=== PATIENT | male | born 1980 | race Caucasian/White ===

== ENCOUNTER 2018-03-26 11:40 | Emergency (ER) | payer MEDICARE, MEDICAID, SELFPAY ==
[2018-03-26 11:45] VITALS: BP 153/105; PULSE 99; RESP 22; TEMP 36.2; O2SAT 94
--- NOTE | 2018-03-26 11:56 | ED.GENADUL_ITS ---
Disposition Clinical Impression: Abdominal pain, Acute flank pain Disposition: HOME Condition: Good Instructions: Abdominal Pain (ED), Flank Pain (ED) Additional Instructions: As we discussed, we are somewhat limited in our ability to evaluate your abdominal discomfort that is improving. As we discussed, please return tomorrow morning for mandatory recheck unless pain is dissipating or resolved. Return sooner if you develop a fever, vomiting, worsening pain or any other acute concerns. Home to rest today. Small, frequent sips of fluids to maintain hydration. May use Tylenol 975 mg every 6 hours, as well as ibuprofen 800 mg every 8 hours( with food, next dose in 6 hours). Medical Decision Making - Lab Data Laboratory Results - last 24 hr 03/26/18 03/26/18 03/26/18 11:56 11:56 12:05 WBC 12.40 H RBC 5.29 Hgb 16.0 Hct 47.2 MCV 89.2 MCH 30.2 MCHC 33.9 RDW 13.8 Plt Count 360 MPV 11.0 Immature Gran % 0.3 Neutrophils % 75.3 Lymphocytes % 14.4 Monocytes % 9.0 Eosinophils % 0.8 Basophils % 0.2 Absolute Neutrophils 9.34 H Absolute Lymphocytes 1.79 Absolute Monocytes 1.12 H Absolute Eosinophils 0.10 Absolute Basophils 0.02 Sodium 139 Potassium 3.9 Chloride 102 Carbon Dioxide 26.5 Anion Gap 10.5 BUN 10 Creatinine 1.21 Estimated GFR/1.73 m2 >= 60.00 Glucose 114 H Calcium 9.3 Total Bilirubin 0.6 AST 41 H ALT 71 Alkaline Phosphatase 76 Total Protein 8.9 H Albumin 4.0 Urine Color Yellow Urine Clarity Clear Urine pH 5.5 Ur Specific [place] 1.020 Urine Protein Negative Urine Ketones Negative Urine Blood Negative Urine Nitrite Negative Urine Bilirubin Negative Urine Urobilinogen 0.2 Ur Leukocyte Esterase Negative Urine Glucose Negative Results reviewed for labs ordered during visit: Yes - Radiology Data Radiology results: image reviewed - Medical Decision Making 38-year-old male presents with the abrupt onset of colicky left-sided flank pain at 0100 this morning. He is slightly hypertensive but afebrile in mild to moderate distress. Of note on exam is 480 pounds, in mild distress, tender in the left flank and abdomen on exam. Most consistent with renal colic, most exclude other pathologies. His weight precludes CT imaging. IV placed, labs obtained compression referred for ultrasound. Urinalysis unremarkable, chemistries within normal limits BUN 10, creatinine 1.2 , liver functions unremarkable. White blood cell count 12, hematocrit 47. The patient's improved to 3 out of 10 following ketorolac. This ultrasound was limited by body habitus but not show acute, significant findings. Discussed with him the limitations of workup. He was reexamined without persistent discomfort and he does not demonstrate signs of peritonitis. Discussed with him that we will have him return to see myself or his other provider tomorrow for recheck. Discussed this at the bedside with his partner in attendance. He will return sooner if he develops fever, increasing pain, or any other acute concerns. History of Present Illness - General Chief complaint: FlankPain Stated complaint: SEVERE BACK PAIN Time Seen by Provider: 03/26/18 11:42 Source: patient, family, RN notes reviewed Mode of arrival: ambulatory Limitations: no limitations - History of Present Illness Initial comments: Pain: 30-year-old male presents to return today complaining of the above onset of severe left-sided flank pain approximately 2:00 this morning. It has been waxing and waning and has begun to radiate to the front. He did not have nausea or vomiting. He denies urine changes. No recent fever or illness. States he did not fall or hurt himself. No other exacerbating or ameliorating factors. - Related Data Unknown [Unable to Obtain] 03/26/18 Allergies Allergy/AdvReac Type Severity Reaction Status Date / Time No Known Allergies Allergy Unverified 03/26/18 11:48 Review of Systems Other: 6 systems reviewed, otherwise- General Exam - General Limitations: no limitations General appearance: alert, in no apparent distress - Head Head exam: Present: atraumatic, normocephalic - Eye Eye exam: Present: PERRL, EOMI - Neck Neck exam: Present: normal inspection, full ROM - Respiratory Respiratory exam: Present: normal lung sounds bilaterally. Absent: respiratory distress - Cardiovascular Cardiovascular Exam: Present: regular rate, normal rhythm - GI/Abdominal GI/Abdominal exam: Present: soft, tenderness, other. Absent: distended - Extremities Exam Extremities exam: Present: normal inspection, full ROM - Back Exam Back exam: Present: normal inspection, tenderness, CVA tenderness (L). Absent: vertebral tenderness - Neurological Exam Neurological exam: Present: alert, oriented X3 - Psychiatric Psychiatric exam: Present: normal affect, normal mood - Skin Skin exam: Present: warm, dry, intact Course Vital Signs - 24 hr 03/26/18 11:45 Temperature 36.2 C L Pulse 99 H Respiratory 22 Rate Blood Pressure 153/105 Pulse Oximetry 94 L
[2018-03-26] MEDS: Ketorolac 30 MG/ML VIAL IVP (12:00)
[2018-03-26 12:07] LABS: Abs Immature Grans 0.04 k/cumm (0.0-0.09); Absolute Basophil Count 0.02 k/cumm (0.0-0.2); Absolute Monocyte Count 1.12 k/cumm (0.11-0.7); Absolute Neutrophil Count 9.34 k/cumm (1.2-6.7); Basophils % 0.2; Eosinophils % 0.8; HCT 47.2 % (40.0-50.0); Immature Grans % 0.3; Lymphocytes % 14.4; Mean Corp. HGB Concentration 33.9 g/dL (32.0-36.0); Mean Corpuscular Hemoglobin 30.2 pg (27.0-33.0); Mean Corpuscular Volume 89.2 fL (80-95); Neutrophils % 75.3; Platelet Count 360 x1000/uL (130-400); RBC 5.29 m/cumm (4.50-6.00); RBC Distribution Width 13.8 % (11.8-14.1)
[2018-03-26 12:09] LABS: Absolute Lymphocyte Count 1.79 k/cumm (1.2-3.4)
--- NOTE | 2018-03-26 12:09 | DI.REPORT_ITS ---
SYMPTOM/DIAGNOSIS: 480 LBS. LT FLANK PAIN RADIATING TO ANTERIOR ABDOMINAL ULTRASOUND: Routine examination was performed. The study is severely limited due to patient 's obesity. The aorta and IVC were incompletely visualized. There is diffuse increased echogenicity of the liver consistent with fatty infiltration. No gross abnormality is seen sonographically. The gallbladder is unremarkable. No stones are present. The common bile duct could not be visualized due to body habitus nor could the pancreas. The spleen is mildly enlarged but not well visualized. The kidneys are poorly visualized. No obvious hydronephrosis is identified. The kidneys appear normal in size. IMPRESSION: Significantly limited examination due to patient body habitus. No evidence of hydronephrosis...
[2018-03-26 12:12] LABS: Bilirubin Negative (Negative); Blood Negative (Negative); Clarity Clear; Glucose Negative (Negative); Ketones Negative (Negative); Leukocyte Esterase Negative (Negative); Nitrite Negative (Negative); Urobilinogen 0.2 EU/dL (Up TO 0.2); pH 5.5 (5-8)
[2018-03-26 12:21] LABS: ALT 71 U/L (12-78); AST 41 U/L (15-37); Alkaline Phosphatase 76 U/L (46-116); Anion Gap 10.5 mmol/L (3-11); BUN 10 mg/dL (7-18); Bilirubin, Total 0.6 mg/dL (0.2-1.0); CO2 26.5 mmol/L (21.0-32.0); CREATININE 1.21 mg/dL (0.70-1.30); Calcium 9.3 mg/dL (8.5-10.1); Chloride 102 mmol/L (98-107); Glucose 114 mg/dL (70-100); Potassium 3.9 mmol/L (3.5-5.1); Sodium 139 mmol/L (136-145); Total Protein 8.9 g/dL (6.4-8.2)
[2018-03-26] MEDS: Normal Saline 1,000 ML 1000 ML IV (12:48)
[2018-03-26 13:04] VITALS: BP 135/98; PULSE 68; RESP 19; O2SAT 94
== END 2018-03-26 13:04 | disposition home or self-care (01) ==
PROVIDERS: Emergency Provider Emergency Medicine; PCP Family Medicine
DX: R10.32 Left lower quadrant pain (principal); Z68.43 Body mass index [BMI] 50.0-59.9, adult
CPT/HCPCS: 76700; 96374; 99284 ×2; J1885; 36415; 80053; 81003; 85025

== ENCOUNTER 2018-04-05 16:03 | Outpatient (CLI) | payer MEDICARE, MEDICAID, SELFPAY ==
[2018-04-06 09:50] LABS: PSA, Screening 0.1 ng/ml (0-2.5)
== END 2018-04-05 16:04 ==
PROVIDERS: PCP Family Medicine; Visit Provider Nurse Practitioner Gerontology
DX: N39.41 Urge incontinence (principal); Z12.5 Encounter for screening for malignant neoplasm of prostate; I10 Essential (primary) hypertension
CPT/HCPCS: 36415; 81003; 84153; 99204

== ENCOUNTER → 2018-06-20 10:25 | Outpatient (BNVA) | payer MEDICARE, MEDICAID, SELFPAY | PROVIDERS: PCP Family Medicine; Visit Provider Nurse Practitioner Gerontology | DX: R32 Unspecified urinary incontinence (principal) | CPT/HCPCS: 99213 ==

== ENCOUNTER → 2018-08-09 10:12 | Outpatient (BNVA) | payer MEDICARE, MEDICAID, SELFPAY | PROVIDERS: PCP Family Medicine; Visit Provider Nurse Practitioner Gerontology | DX: N39.498 Other specified urinary incontinence (principal) | CPT/HCPCS: 51798; 99213 ==

== ENCOUNTER 2019-06-19 08:41 | Outpatient (REF) | payer MEDICARE, MEDICAID, SELFPAY ==
[2019-06-19 13:02] LABS: HCT 44.9 % (40.0-50.0); HGB 15.1 g/dL (13.5-17.5); Mean Corp. HGB Concentration 33.6 g/dL (32.0-36.0); Mean Corpuscular Hemoglobin 29.8 pg (27.0-33.0); Mean Corpuscular Volume 88.7 fL (80-95); Mean Platelet Volume 11.1 fL (8.0-11.0); Platelet Count 391 x1000/uL (130-400); RBC 5.06 m/cumm (4.50-6.00); RBC Distribution Width 14.4 % (11.8-14.1); White Blood Cell Count 7.45 k/cumm (4.4-10.8)
[2019-06-19 13:24] LABS: ALT 27 U/L (16-63); AST 22 U/L (15-37); Albumin 4.5 g/dL (3.4-5.0); Alkaline Phosphatase 72 U/L (46-116); Anion Gap 11.3 mmol/L (3-11); BUN 10 mg/dL (7-18); Bilirubin, Total 0.9 mg/dL (0.2-1.0); CO2 28.7 mmol/L (21.0-32.0); CREATININE 1.01 mg/dL (0.70-1.30); Calculated LDL 117 mg/dL; Chloride 103 mmol/L (98-107); Cholesterol 169 mg/dL (50-200); Glucose 84 mg/dL (70-100); HDL Cholesterol 41 mg/dL (40-60); Potassium 4.5 mmol/L (3.5-5.1); Sodium 143 mmol/L (136-145); Total Protein 8.2 g/dL (6.4-8.2); Triglyceride 56 mg/dL (30-150)
== END 2019-06-19 09:01 ==
LOC: NCHCN 08:41
PROVIDERS: PCP Family Medicine; Visit Provider Family Medicine
DX: I10 Essential (primary) hypertension (principal)
CPT/HCPCS: 80053; 80061; 85027

== ENCOUNTER 2024-09-02 14:44 | Emergency (ER) | payer MEDICARE, MEDICAID, SELFPAY ==
[2024-09-02 14:47] VITALS: BP 136/85; PULSE 82; RESP 16; TEMP 36.9; O2SAT 98
--- NOTE | 2024-09-02 14:53 | ED.GENADUL_ITS ---
Discharge Plan Disposition Patient Disposition: Home Discharge Details Clinical Impression: Laceration of leg, right Primary Care Provider: Mayo Wilson ED Provider: Varun Nolen Home Meds and New Rx's Prescriptions: New cephalexin 500 mg capsule 500 mg PO QID 5 Days Qty: 20 0RF cephalexin 500 mg capsule 500 mg PO QID 5 Days Qty: 20 0RF Continued oxybutynin chloride 10 mg tablet extended release 24hr 10 mg PO DAILY Qty: 90 0RF Rx Instructions: Note dosage increase. May finish 5mg rx by taking 2 tabs/caps at a time then start new rx. furosemide 40 MG tablet 80 mg PO DAILY acetaminophen 500 MG tablet 1,000 mg PO Q6H PRN buspirone 30 mg tablet 30 mg PO BID clonidine HCl 0.2 mg tablet 0.4 mg PO DAILY clonidine HCl 0.3 mg tablet 0.3 mg PO QHS fluoxetine 40 mg capsule 40 mg PO DAILY lisinopril 20 mg tablet 20 mg PO DAILY lurasidone 20 mg tablet 20 mg PO .every other day Rx Instructions: must administer with food (at least 350 calories) metoprolol succinate 50 mg tablet extended release 24 hr 50 mg PO DAILY cyanocobalamin (vitamin B-12) [Vitamin B-12] 1,000 mcg tablet 1,000 mcg PO DAILY cholecalciferol (vitamin D3) 25 mcg (1,000 unit) tablet 25 mcg PO DAILY lisdexamfetamine [Vyvanse] 40 mg capsule 40 mg PO QAM Discharge Instructions Instructions: Wound Infection Additional Instructions: You were seen in the emergency department for your right lower extremity laceration which was closed with sutures that will need to be removed in 7 to 10 days. As we discussed, please keep your wound clean, dry and covered. Please do not soak in a tub, swim or engage in any activities which could introduce dirt into your wound. You may return to the emergency department, go to urgent care or go to your primary care provider in 7 to 10 days to have your stitches removed. As we discussed if you develop any foul-smelling drainage fevers streaking signs of infection or have any other concerns please return to the emergency department. You received a printed copy of antibiotics which you should begin taking in the morning tomorrow. For your pain please take medications as follows: 1. Take acetaminophen (Tylenol), 1,000 mg (two 500 mg tabs) every 6 hours [2. Take ibuprofen (Advil), 400 mg every 6 hours.] Discharge Data Discharge Date/Time-TO BE ENTERED AT DEPARTURE: 09/02/24 17:12 HPI General Date/Time Provider Initiated Documentation: 09/02/24 14:53 . HPI Narrative: MDM Primary survey intact. Reassuring shock index. On secondary survey patient has significant right lower extremity laceration on lateral aspect of his tibia for which plain films were obtained which were negative for any acute osseous abnormalities. After tetanus immunization and 2 g of cephalexin extensive irrigation and application of left close the patient's wound. Please see separate procedure notes. He is not a diabetic nor a tobacco user though based on the area of injury my suspicion is still relatively high for poor wound healing. Given that he fell outdoors I close the patient's wound loosely. I advised rest and elevation along with monitoring for streaking signs of infection. Patient no preceding chest pain to suggest ACS I did not obtain ECG. He did not hit his head or lose consciousness and no indication for CT head. He had a ride home after receiving IV morphine. He was able to tolerate p.o. after his laceration was closed. He understood his return indications and was discharged with an empiric trial of infection to outpatient management. HPI This is a 44-year-old male with history of schizophrenia arrived emergency department via private vehicle following a fall. Patient was reportedly walking in the [place] and inadvertently fell into a hole. He cut his right lower extremity on a rock. He noted that it was bleeding significantly. He is not on a blood thinner. He had no preceding chest pain shortness of breath nausea or vomiting. Exam General: Well-appearing in no acute distress speaking in complete sentences. Head: Normocephalic, atraumatic. Eye: Extraocular eye movements intact. No conjunctival injection. No scleral icterus. Ear, nose, mouth, throat: Grossly normal inspection. Normal voice, handling secretions normally. Neck: Trachea midline. Cardiovascular: Well-perfused distal extremities. Respiratory: Nonlabored respiration. Clear lungs bilaterally. Gastrointestinal: Nondistended abdomen. Musculoskeletal: No edema. Moving all 4 extremities spontaneously. On the lateral aspect of the patient's right lower extremity between his right knee and his right ankle there is an approximately 5 x 4 cm laceration that is hemostatic and does not violate the fascia. Patient is full range of motion in his right lower extremity. He has 2+ PT and DP pulses. He is 5 out of 5 dorsi and planta r flexion strength on the right. He has soft compartments of his right lower extremity. Skin: Normal for age and race, grossly normal temperature and turgor. No acute rash. Neurologic: Alert and appropriate, no apparent acute deficits. GCS 15. Related Data Home Medications ?Medication ?Instructions ?Recorded ?Confirmed acetaminophen 500 mg tablet 1,000 mg PO Q6H PRN 04/05/18 09/02/24 furosemide 40 mg tablet 80 mg PO DAILY 04/05/18 09/02/24 oxybutynin chloride 10 mg 10 mg PO DAILY #90 tabs 08/09/18 09/02/24 tablet,extended release 24 hr buspirone 30 mg tablet 30 mg PO BID 04/10/24 09/02/24 cholecalciferol (vitamin D3) 25 25 mcg PO DAILY 04/10/24 09/02/24 mcg (1,000 unit) tablet clonidine HCl 0.2 mg tablet 0.4 mg PO DAILY 04/10/24 09/02/24 clonidine HCl 0.3 mg tablet 0.3 mg PO QHS 04/10/24 09/02/24 cyanocobalamin (vitamin B-12) 1,000 mcg PO DAILY 04/10/24 09/02/24 1,000 mcg tablet (Vitamin B-12) fluoxetine 40 mg capsule 40 mg PO DAILY 04/10/24 09/02/24 lisdexamfetamine 40 mg capsule 40 mg PO QAM 04/10/24 09/02/24 (Vyvanse) lisinopril 20 mg tablet 20 mg PO DAILY 04/10/24 09/02/24 lurasidone 20 mg tablet 20 mg PO .every other day 04/10/24 09/02/24 metoprolol succinate 50 mg 50 mg PO DAILY 04/10/24 09/02/24 tablet,extended release 24 hr cephalexin 500 mg capsule 500 mg PO QID 5 days #20 caps 09/02/24 cephalexin 500 mg capsule 500 mg PO QID 5 days #20 caps 09/02/24 Previous Rx's ?Medication ?Instructions ?Recorded oxybutynin chloride 10 mg 10 mg PO DAILY #90 tabs 08/09/18 tablet,extended release 24 hr cephalexin 500 mg capsule 500 mg PO QID 5 days #20 caps 09/02/24 cephalexin 500 mg capsule 500 mg PO QID 5 days #20 caps 09/02/24 Allergies Allergy/AdvReac Type Severity Reaction Status Date / Time No Known Allergies Allergy Unverified 09/02/24 14:49 General Stated Complaint: Laceration LISA: 3 Course Vital Signs Vital signs: Vital Signs Temperature 36.9 C 09/02/24 14:47 Pulse 82 09/02/24 14:47 Respiratory Rate 16 09/02/24 14:47 Blood Pressure 136/85 09/02/24 14:47 Pulse Oximetry 98 09/02/24 14:47 Temperature 36.9 C 09/02/24 14:47 Temperature Source Oral 09/02/24 14:47 Pulse 82 09/02/24 14:47 Respiratory Rate 16 09/02/24 14:47 Blood Pressure 136/85 09/02/24 14:47 Blood Pressure Position Sitting 09/02/24 14:47 Pulse Oximetry 98 09/02/24 14:47 Oxygen Delivery Method Room Air 09/02/24 14:47 Oxygen Flow Rate 0 09/02/24 14:47 Pain Level 3 09/02/24 14:47 Procedure Laceration Laceration 1: Date of Procedure: 09/02/24 Time of procedure: 17:04 Provider that performed the procedure: Varun Nolen Patient Consented: Verbally Site: lower extremity Side (If applicable): right Description: flap Depth: simple, single layer Pre-procedure medication: Morphine Amount of pre-procedure medication(mg): 4 Local anesthetic: Lidocaine 2%, with Epi and LET(lidocaine epinephrine tetracaine) Amount of anesthesia used (mL): 20 Pre-repair:: wound explored and irrigated extensively Skin layer closed with: other (Prolene) Size (cm): 3-0 Number of sutures:: 12 Technique: simple, interrupted and vertical mattress Medical Decision Making Quality:SDOH Health Related Social Needs: No Data to Display PFSH All Active Problems (Updated 09/02/24 @ 17:01 by Varun Nolen MD) Laceration of leg, right (Acute) Snoring (Acute) Primary focal hyperhidrosis (Acute) Onychogryposis (Acute) Obstructive sleep apnea (Chronic) Insomnia (Acute) Hypersomnia (Acute) Depressive disorder (Chronic) Venous stasis ulcer of lower leg (Acute) Tachycardia (Acute) Schizophrenia (Chronic) Morbid obesity (Acute) Lymphedema of both lower extremities (Acute) Cracked skin on feet (Acute) Increased urinary frequency (Acute) Caffeine abuse (Acute) Foot callus (Acute) Complete fecal incontinence (Acute) Anxiety (Chronic) Binge eating disorder (Acute) Hypertension (Chronic) Urinary incontinence (Acute) Social History (Updated 04/10/24 @ 13:24 by Fawn Hoffman RN, RN) Smoking/Tobacco Use Status: Never Smoking risk assessment performed?: Yes Alcohol Intake: never Drug use: Never Substance use type: does not use Housing: house Do you feel safe at home: Yes Do you feel safe in your relationship?: Yes Additional Social history: caregiver very supportive
[2024-09-02] MEDS: ceFAZolin 2 GM/50 ML BAG IVPB (15:43)
[2024-09-02] MEDS: Ketorolac 15 MG/ML VIAL IVP (15:43)
[2024-09-02] MEDS: Lidocaine/Epinephri/Tetracaine Topical Gel 3 ML TP (15:44)
[2024-09-02] MEDS: Diph,Pertuss(Acell),Tet Vac/Pf 0.5 ML SYR IM (15:44)
--- OUTSIDE RECORDS SUMMARY | 2024-09-02 16:13 | XMS_ITS | Encounter Summary ---
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 Out And Marking Machine Operator Name Role Phone Lynne Barrett MD Primary Care Provider Reason for Visit * Reason Onset Date Comments Referral 08/06/2018 Encounter Details Date Type Department Care Team (Late st Contact Info) Description 08/06/2018 Telephone Weight and Wellness at [facility] [address] [place] [address] Herber Rutherford, denture contour wire specialist Social History Tobacco Use Types Packs/Day Years Used Date Smoking Tobacco: Never Sex and Gender Information Value Date Recorded Sex Assigned at Not on file Gender Identity Not on file Sexual Orientation Not on file documented as of this encounter Miscellaneous Notes * Telephone Encounter - Ute Restrepo - 08/06/2018 1:49 PM EST Gene Please review Thank you documented in this encounter Plan of Treatment Not on file documented as of this encounter Visit Diagnoses Not on filedocumented in this encounter Care Teams Cut Out And Marking Machine Operator Relationship Specialty Start Date End Date Lynne Barrett MD [address] [place] [address] PCP - General Family Medicine 06/02/16 12/25/19 documented as of this encounter
--- OUTSIDE RECORDS SUMMARY | 2024-09-02 16:13 | XMS_ITS | Continuity of Care Document ---
Author Organization [facility] Address [address] [place] [address] Care Team Providers Care Oyster Washer Name Role Phone Mayo Wilson Primary Care Physician [facility] Date[facility] 07/19/23 - 07/19/23 [facility] [address] [place] [address] Discharge Disposition: Home or Self Care Attending Physician: Mayo Wilson MD Admitting Physician: Mayo Wilson MD Referring Physician: Mayo Wilson MD Allergies, Adverse Reactions, Alerts No Known Medication Allergies Assessment and Plan Future Appointments Immunizations Given and Recorded Vaccine Date Status Refusal Reason SARS-COV-2 (COVID-19) vaccine, unspecifi 06/02/23 Recorded SARS-CoV-2 (COVID-19) mRNA-1273 vaccine 01/08/21 R ecorded SARS-CoV-2 (COVID-19) mRNA-1273 vaccine 12/11/20 R ecorded influenza virus vaccine, live 07/08/20 Recorded tetanus/diphth/pertuss (Tdap) adult/adol 07/08/20 Recorded influenza virus vaccine, inactivated 05/23/13 Abel rded Medications AAA - Misc Prescription 28 unknown unit, 0 Refill(s) Start Date: 10/26/22 Status: Ordered adult briefs adult briefs, XL Adult Pull ups, Supply, See instructions, # 100 EA, 6 Refill(s) Start Date: 05/11/23 Status: Ordered busPIRone 30 mg oral tablet 1 tab, Oral, BID, # 56 tab, 2 Refill(s), Pharmacy: [facility] Dorcas Rodriguez cm, 10/04/22 7:36:00 EST, Height/Length Dosing, 137.55, kg, 10/04/22 7:36:00 EST, Weight Dosing Start Date: 01/23/23 Stop Date: 04/17/23 Status: Ordered cloNIDine 0.2 mg oral tablet 0.4 mg = 2 tab, Oral, Once, # 180 tab, 0 Refill(s) Start Date: 07/19/23 Status: Ordered cloNIDine 0.3 mg oral tablet See Instructions, TAKE 1 TABLET AT BEDTIME, # 84 tab, 3 Refill(s), Pharmacy: [facility] [id number], 194, cm, 10/04/22 7:36:00 EST, Height/Length Dosing, 137.55, kg, 10/04/22 7:36:00 EST, Weight Dosing Start Date: 03/13/23 Status: Ordered furosemide 40 mg oral tablet 2 tab, Oral, Daily, # 56 tab, 2 Refill(s), Pharmacy: [facility] [id number], 194, cm, 10/04/22 7:36:00 EST, Height/Length Dosing, 137.55, kg, 10/04/22 7:36:00 EST, Weight Dosing Start Date: 06/06/23 Status: Ordered lurasidone 20 mg oral tablet 20 mg = 1 tab, Oral, Daily, # 30 tab, 0 Refill(s) Start Date: 07/19/23 Status: Ordered metoprolol succinate 50 mg oral tablet, extended release 50 mg = 1 tab, Oral, Daily, # 30 tab, 0 Refill(s), Pharmacy: [facility], 184.15, cm, 10/31/22 11:05:00 EDT, Height, 150.2, kg, 07/19/23 10:31:00 EST, Weight Dosing Start Date: 07/19/23 Status: Ordered oxybutynin 10 mg/24 hr oral tablet, extended release 1 tab, Oral, Daily, # 28 tab, 3 Refill(s), Pharmacy: [place] [id number], 184.15, cm, 10/31/22 11:05:00 EDT, Height, 137.55, kg, 10/04/22 7:36:00 EST, Weight Dosing Start Date: 07/03/23 Status: Ordered PROzac 20 mg oral capsule 20 mg = 1 cap, Oral, Daily, # 28 cap, 2 Refill(s), Pharmacy: [facility], 194, cm, 10/04/22 7:36:00 EST, Height/Length Dosing, 137.55, kg, 10/04/22 7:36:00 EST, Weight Dosing Start Date: 12/23/22 Status: Ordered Vitamin B12 1000 mcg oral tablet 1,000 mcg = 1 tab, Oral, Daily, # 30 tab, 2 Refill(s), Pharmacy: [facility] Start Date: 09/01/22 Stop Date: 11/30/22 Status: Ordered Vitamin D3 2000 intl units oral tablet 50 mcg = 1 tab, Oral, Daily, # 28 tab, 2 Refill(s), Pharmacy: [facility], 194, cm, 10/04/22 7:36:00 EST, Height/Length Dosing, 137.55, kg, 10/04/22 7:36:00 EST, Weight Dosing Start Date: 12/23/22 Status: Ordered Vyvanse 20 mg oral capsule 28 cap, 0 Refill(s) Start Date: 10/26/22 Status: Ordered Vyvanse 70 mg oral capsule 70 mg 1 cap, Oral, every morning, Dr. Carrera Patient, # 30 cap, 0 Refill(s), Pharmacy: [facility], 194, cm, 10/04/22 7:36:00 EST, Height/Length Dosing, 137.55, kg, 10/04/22 7:36:00 EST,Weight Dosing Start Date: 02/17/23 Stop Date: 03/19/23 Status: Ordered Problem List Condition Confirmation Course Effective Dates Status H ealth Status Informant Anxiety Confirmed 07/08/20 Active Binge-eating disorder, severe Confirmed Active Complete fecal incontinence Confirmed Active Hypertension Confirmed Active Increased frequency of urination Confirmed Active Lymphedema of bilateral lower limbs Confirmed 06/22/16 Active Morbid obesity Confirmed 06/22/16 Active Obesity Confirmed Active Annual physical exam Confirmed Active Screening for colon cancer Confirmed Active Schizophrenia Confirmed 06/22/16 Active Superficial skin ulcer of lower limb Confirmed 06/22/16 Active Urinary incontinence Confirmed Active Venous stasis ulcer of leg Confirmed 07/13/16 Active Results Laboratory List Name Date CBC w/o Diff (Hemogram) 07/19/23 Comprehensive Metabolic Panel (CMP) 06/22 05/13 Hemoglobin A1c 07/19/23 Lipid Panel 07/19/23 TSH w/ Rflx to Free T4 07/19/23 Most recent to oldest [Reference Range]: 1 WBC [5.0-10.0 x10^3/mcL] 9.1 x10^3/mcL (07/19/23 10:44 AM) RBC [4.6-6.0 x10^6/mcL] 5.8 x10^6/mcL (07/19/23 10:44 AM) BUN [7-18 mg/dL] 16 mg/dL (07/19/23 10:44 AM) Cholesterol Total [50-200 mg/dL] 208 mg/ dL *HI* (07/19/23 10:44 AM) LDL [0-130 mg/dL] 127 mg/dL (07/19/23 10:44 AM) Glucose Level [74-106 mg/dL] 96 mg/dL (07/19/23 10:44 AM) Potassium Level [3.5-5.1 mmol/L] 4.1 mmo l/L (07/19/23 10:44 AM) MCV [80.0-96.0 fL] 85.8 fL (07/19/23 10:44 AM) HDL [40-60 mg/dL] 43 mg/dL (07/19/23 10:44 AM) AST [15-37 unit/L] 23 unit/L (07/19/23 10:44 AM) ALT [16-63 unit/L] 30 unit/L (07/19/23 10:44 AM) MCHC [31.0-35.0 g/dL] 34.0 g/dL (07/19/23 10:44 AM) Sodium Level [136-145 mmol/L] 139 mmol/L (07/19/23 10:44 AM) Hct [41.0-51.0 %] 50.0 % (07/19/23 10:44 AM) Triglycerides [0-150 mg/dL] 188 mg/dL *HI* (07/19/23 10:44 AM) Calcium Level [8.5-10.1 mg/dL] 9.7 mg/dL (07/19/23 10:44 AM) Albumin Level [3.4-5.0 g/dL] 4.0 g/dL (07/19/23 10:44 AM) Protein Total [6.4-8.2 g/dL] 8.1 g/dL (07/19/23 10:44 AM) MCH [26.0-32.0 pg] 29.2 pg (07/19/23 10:44 AM) Bilirubin Total [0.2-1.0 mg/dL] 0.3 mg/d L (07/19/23 10:44 AM) Hgb [14.0-18.0 g/dL] 17.0 g/dL (07/19/23 10:44 AM) Alk Phos [46-146 unit/L] 70 unit/L (07/19/23 10:44 AM) Platelets [130-450 x10^3/mcL] 419 x10^3/ mcL (07/19/23 10:44 AM) CO2 [21-32 mmol/L] 28 mmol/L (07/19/23 10:44 AM) TSH [0.358-3.740 mcIntlUnit/mL] 2.058 mc IntlUnit/mL (07/19/23 10:44 AM) eGFR Non-AA [>=60] 80 (07/19/23 10:44 AM) eGFR AA [>=60] 80 (07/19/23 10:44 AM) Hemoglobin A1c [4.0-6.0 %] 5.5 % (07/19/23 10:44 AM) Chloride Level [98-107 mmol/L] 102 mmol/ L (07/19/23 10:44 AM) RDW-CV [11.5-14.5 %] 13.6 % (07/19/23 10:44 AM) Creatinine Level [0.70-1.30 mg/dL] 1.16 mg/dL (07/19/23 10:44 AM) Social History Social History Type Response Smoking Status Smoking tobacco use: Never tobacco user;Never entered on: 03/28/23 Sex Male Patient Care team information Care Team Personnel Name: Mayo Wilson MD Position: Physician Member Role: Informed Provider Address: Address: [address] Care Team Related Persons Name: PATRICK DRIVER Address: Home [address] [facility] [place] [id number] Name: LEIF GARVEY Name: SUZIE GARVEY Address: [address], [address] Address: [address], [id number]
--- OUTSIDE RECORDS SUMMARY | 2024-09-02 16:13 | XMS_ITS | Encounter Summary ---
Author Organization [facility] [place] [address] Care Team Providers Care Community Life Director Name Role Phone Unavailable Primary Care Provider Unavailabl e Encounter Details Date Type Department Care Team (Late st Contact Info) Description 12/27/2019 Abstract [facility] at [facility] [address] [place] [id number] Syl Mccracken MD Social History Tobacco Use Types Packs/Day Years Used Date Smoking Tobacco: Former Smokeless Tobacco: Never Comments:[facility] Sex and Gender Information Value Date Recorded Sex Assigned at Not on file Gender Identity Not on file Sexual Orientation Not on file documented as of this encounter Plan of Treatment Not on file documented as of this encounter Visit Diagnoses Not on filedocumented in this encounter
--- OUTSIDE RECORDS SUMMARY | 2024-09-02 16:13 | XMS_ITS | Continuity of Care Document ---
Author Organization [facility] f or Sleep Disorders Address [address] [place] [address] Care Team Providers Care Palliative Medicine Physician Name Role Phone Mayo Wilson Primary Care Physician Encounter [facility] Date(s): 10/25/23 - 10/25/23 [facility] [address] [place] [address] Encounter Diagnosis Snoring(Discharge Diagnosis) - 10/25/23 Discharge Disposition: Home or Self Care Attending Physician: Layne Moreira NP Referring Physician: Mayo Wilson MD Allergies, Adverse Reactions, Alerts No Known Medication Allergies Assessment and Plan Extracted from: Title:Sleep clinical note Author:Verónica Alexandra Date:07/28/16 KWAKU GARVEY 07/28/2016 2:11 PM Location: [facility] Sleep Patient #: [id number] : 1980 Single / Language: Romanian / Race: White Male History of Present Illness??(Ameya Moses MD; 08/07/2016 5:51 AM) The patient is a 36 year old male who presents for a follow up visit. He is seen to review the results of his PSG. He had initially presented with a history of snoring, unrefreshing sleep, excessive daytime sleepiness, obesity, hypertension, and a crowded upper airway anatomy. The patient also has a history of schizophrenia, anxiety, and depression. He had significant difficulty with the sleep study. The patient notes he slept very little. He fell asleep relatively soon but woke up and was awake for the rest of the night. The patient lives in a shelter and is accompanied by one of his caregivers. There are no new problems at this point. Problem List/Past Medical??(Miryam Tabares; 07/28/2016 7:38 AM) Dyslipidemia (272.4 E78.5) ?? Excoriated rash (782.1 R21) ?ER note (unknown location) Benign essential hypertension (401.1 I10) ?? 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 Elevated glucose (790.29 R73.09) ?? Venous stasis ulcer of lower extremity (454.0 I83.009) ?? Overgrown toenails (703.8 L60.2) ?? Chronic depression (311 F32.9) ?? Morbid obesity with BMI of 50.0-59.9, adult (278.01 E66.01) ?Morbidly obese with an alarming weight trajectory. At this point he is gaining about 100lbs a year. Likely not a candidate for bariatric surgery given his psychiatric comorbidities, however I will look into this avenue. Not a candidate for medical therapy for the same reasons.He needs to limit his caloric intake and increase his exercise activity.We spent 30 minutes of this 60 minute visit reviewing weight loss stragies and realistic goals for the patient. We'll follow up in several months to monitor this trend. Obesity (278.00 E66.9) ?? Excessive daytime sleepiness (780.54 G47.19) ?? Frequent nocturnal awakening (780.59 G47.00) ?? Snoring (786.09 R06.83) ?? Cellulitis of right lower extremity (682.6 L03.115) ?Seen in ER 12/18/15 Urinary incontinence, unspecified type (788.30 R32) ?? Fecal incontinence (787.60 R15.9) ?? Cellulitis of foot (682.7 L03.119) ??04/10/2015 Right Medication History??(Ameya Moses MD; 08/07/2016 5:25 AM) BusPIRone HCl?? (15MG Tablet, 3 (three) Oral twice daily, Taken starting 02/04/2016) Active. (per [facility] discharge) CloNIDine HCl?? (0.3MG Tablet, 1 Oral two times daily, Taken starting 03/03/2016) Active. (dose increase per [facility] discharge) Citalopram Hydrobromide?? (20MG Tablet, 1 Oral daily, Taken starting 02/04/2016) Active. (per [facility] discharge) Enalapril-Hydrochlorothiazide?? (10-25MG Tablet, 1 (one) Oral daily for blood pressure, Taken starting 12/15/2015) Active. Latuda?? (40MG Tablet, 1 (one) Oral at bedtime, Taken starting 02/04/2016) Active. (per [facility] discharge) Nystatin?? (163301KMRX/GM Powder, 1 (one) External two times daily, Taken starting 03/03/2016) Active. AmLODIPine Besylate?? (10MG Tablet, 1 (one) Oral qd - daily, Taken starting 02/04/2016) Active. (dose increase per [facility] discharge) Acetaminophen?? (500MG Tablet, 2 (two) Oral Every 6 hours as needed, Taken starting 03/03/2016) Active. Docusate Sodium?? (100MG Capsule, 2 (two) Oral daily, as needed, Taken starting 03/03/2016) Active. Sennosides?? (8.6MG Tablet, 2 (two) Oral daily, as needed, Taken starting 03/03/2016) Active. AmLactin?? (12% Lotion, 1 (one) Lotion External daily as needed, Taken starting 02/10/2016) Active. Medications Reconciled?? (Verbally and with list, Patient did not bring medications) Allergies??(Miryam Tabares; 07/28/2016 7:38 AM) No Known Drug Allergies ??02/12/2013 Social History??(Miryam Tabares; 07/28/2016 7:38 AM) Alcohol Use ?Heavy alcohol use. Quit 2007 Hearing ?Hearing is normal, no difficulties. Language ?Primary language Romanian, no barriers. Living Situation/Marital Status ?Single, Lives alone. Vision ?Wears corrective lenses/contacts, vision is corrected. Tobacco Use ?Former smoker. smoked 1+ year 29-30. quit 2007 Caffeine Use ?1 soda per day Diagnostic Studies History??(Miryam Tabares; 07/28/2016 7:38 AM) Sleep Study-PSG ??06/20/2016 Vitals??(Miryamchristina Tabares; 07/28/2016 3:04 PM) 07/28/2016 3:03 PM Weight:??499 lb?Height:??73??in?? Body Surface Area:??3.17 m?Body Mass Index:??65.83 kg/m ?? Pulse:??98 (Regular) ?P.OX:??95% (Room air) BP:??138/86 (Sitting, Left Arm, Standard) Physical Exam??(Ameya Moses MD; 08/07/2016 5:33 AM) The physical exam findings are as follows: Note:??GENERAL: Alert and oriented. RESPIRATORY: No evident respiratory distress; speaks in complete sentences. NEUROLOGICAL: Alert and oriented. No evident drowsiness. REVIEW OF STUDIES: PSG of 06/20/2016 revealed AHI=27.4/hr (RDI=85.7) with a REM related AHI=NA/hr (no REM sleep); his oxygen saturation lior was 86%; his PLMI=0.0/hr and his PLMaI=0.0/hr. He had a sinus rhythm throughout, no Peewee-Matthews respirations, and no parasomnias. His EEG showed no abnormalities in the leads that were monitored. NB: The patient only had 17.5 minutes total sleep time during the whole study out of 405.50 total recording time. He was supine during the whole time he slept and he had not stage 2, stage 3, or REM sleep. Thus, it is very likely that the results of this study underestimates the severity of his sleep disordered breathing. Assessment & Plan??(Ameya Moses MD; 08/07/2016 6:07 AM) Obstructive sleep apnea (327.23 G47.33) Story: Impression: Current Plans ? ? CONTINUOUS POSITIVE AIRWAY PRESSURE DEVICE (CPAP) (E0601) ? ? TITRATION STUDY (81877) (SEE SALMON SHEET--SHOULD BE ONLY PATIENT OF THE NIGHT AND SHOULD BE TESTED BY OUR MALE CAN CUTTER) ? ? Started Zolpidem Tartrate 5MG, 1 (one) Tablet 1-2 hs prn sleep study, #3, 3 days starting 07/28/2016, No Refill. Local Order: Rx called to [facility] pharmacy ? ? Begin auto CPAP 8-18 cm with ramp, heated humidity, and full face mask of choice--[facility]: discussed with patient and provided information. ? ? Titration study in 5 + weeks: discussed with patient and provided information. ? ? Caution with any hazardous activities if drowsy: discussed with patient and provided information. ? ? Weight loss as able: discussed with patient and provided information. ? ? RTC after titration study: discussed with patient and provided information. ? ? Pt Education - Sleep apnea related education provided ? ? Pt Education - CPAP/BIPAP related education provided. ? ? Pt Education - Weight loss related measures discussed. Portal Instruction (V65.40 Z71.9) Story: Impression: Current Plans ? ? Pt Education - How to access health information online: discussed with patient and provided information. Note:??Discussion: I reviewed the patient's PSG results with the patient and his caregiver. Specifically, I noted that he has, at the minimum, moderately severe (and more likely severe) obstructive sleep apnea. The uncertainty of the exact degree of his HAI is related to the minimal amount of sleep he got during the study. Given the uncertainty of his actual AHI, I recommended strongly that he consider CPAP therapy as opposed to other potential options such as an oral appliance or ENT surgery. The patient expressed the opinion that he would be able to wear a mask without any significant problem. The patient and his caregiver also felt that he is a mouth breather and a fullface mask would be more suitable for him. He feels that he's not going to have a significant problem using that. I explained the process of obtaining a CPAP and a suitable mask. The request was made that [facility] make a house call to his usp. I noted that I would ask and they might be willing to do that. However, I did point out that the selection of fullface masks will be significantly less than it would be at the [employer] [facility]. The patient's caregiver pointed out that it would be possible, should it be necessary, for transportation to be arranged for the patient to be seen at the store. I also spent time discussing the importance of a titration study. The patient is willing to have a second sleep night after he has obtained his CPAP and started to use it. I discussed with him his poor sleep at his last study and suggested that it may be appropriate to at least have available zolpidem should he need it. Thus, a prescription will be called to [facility] pharmacy for zolpidem. The patient will need to pick it up and bring it with him to the titration study. The patient's poorly defined level of nocturnal hypoxemia will be reassessed at the time of the study. I also discussed the compliance requirements of the patient's insurer. I noted that both [facility] and this practice would be able to closely monitor his use of the machine. The patient returns for a compliance and [id number] visit after his titration study. I spent 30 minutes with the patient, more than half of which was spent in [id number] counseling. cc: Lynne Barrett MD Signed electronically by Ameya Moses MD (07-Aug-2016 6:09 am) (physician signature image removed from display) Future Appointments Immunizations Given and Recorded Vaccine Date Status Refusal Reason SARS-COV-2 (COVID-19) vaccine, unspecifi 06/02/23 Recorded SARS-CoV-2 (COVID-19) mRNA-1273 vaccine 01/08/21 R ecorded SARS-CoV-2 (COVID-19) mRNA-1273 vaccine 12/11/20 R ecorded influenza virus vaccine, live 07/08/20 Recorded tetanus/diphth/pertuss (Tdap) adult/adol 07/08/20 Recorded influenza virus vaccine, inactivated 05/23/13 Abel rded Medications [facility] Prescription 28 unknown unit, 0 Refill(s) Start Date: 10/26/22 Status: Ordered adult briefs adult briefs, XL Adult Pull ups, Supply, See instructions, # 100 EA, 6 Refill(s) Start Date: 05/11/23 Status: Ordered busPIRone 30 mg oral tablet 1 tab, Oral, BID, # 56 tab, 2 Refill(s), Pharmacy: [facility], 194, cm, 10/04/22 7:36:00 EST, Height/Length Dosing, 137.55, kg, 10/04/22 7:36:00 EST, Weight Dosing Start Date: 01/23/23 Stop Date: 04/17/23 Status: Ordered cloNIDine 0.2 mg oral tablet 0.4 mg = 2 tab, Oral, Once, # 180 tab, 0 Refill(s) Start Date: 07/19/23 Status: Ordered cloNIDine 0.3 mg oral tablet See Instructions, TAKE 1 TABLET AT BEDTIME, # 84 tab, 3 Refill(s), Pharmacy: [place] [id number], 194, cm, 10/04/22 7:36:00 EST, Height/Length Dosing, 137.55, kg, 10/04/22 7:36:00 EST, Weight Dosing Start Date: 03/13/23 Status: Ordered furosemide 40 mg oral tablet 2 tab, Oral, Daily, # 56 tab, 0 Refill(s), Pharmacy: [id number], 184.15, cm, 10/31/22 11:05:00 EDT, Height, 146.45, kg, 09/20/23 10:08:00 EST, Weight Dosing Start Date: 09/25/23 Status: Ordered lisinopril 20 mg oral tablet 1 tab, Oral, Daily, # 28 tab, 2 Refill(s), Pharmacy: [id number], 184.15, cm, 10/31/22 11:05:00 EDT, Height, 149.3, kg, 08/16/23 9:37:00 EST, Weight Dosing Start Date: 08/25/23 Status: Ordered lurasidone 20 mg oral tablet 20 mg = 1 tab, Oral, every other day, # 30 tab, 0 Refill(s) Start Date: 07/19/23 Status: Ordered Metoprolol Succinate ER 50 mg oral tablet, extended release 1 tab, Oral, Daily, # 28 tab, 3 Refill(s), Pharmacy: [id number], 184.15, cm, 10/31/22 11:05:00 EDT, Height, 150.2, kg, 07/19/23 10:31:00 EST, Weight Dosing Start Date: 07/28/23 Status: Ordered oxybutynin 10 mg/24 hr oral tablet, extended release 1 tab, Oral, Daily, # 28 tab, 3 Refill(s), Pharmacy: [facility] [address], 184.15, cm, 10/31/22 11:05:00 EDT, Height, 146.45, kg, 09/20/23 10:08:00 EST, Weight Dosing Start Date: 10/20/23 Status: Ordered PROzac 20 mg oral capsule 20 mg = 1 cap, Oral, Daily, # 28 cap, 2 Refill(s), Pharmacy: [facility], 194, cm, 10/04/22 7:36:00 EST, Height/Length Dosing, 137.55, kg, 10/04/22 7:36:00 EST, Weight Dosing Start Date: 12/23/22 Status: Ordered Vitamin B12 1000 mcg oral tablet 1,000 mcg = 1 tab, Oral, Daily, # 30 tab, 2 Refill(s), Pharmacy: [facility] Start Date: 09/01/22 Stop Date: 11/30/22 Status: Ordered Vitamin D3 2000 intl units oral tablet 50 mcg = 1 tab, Oral, Daily, # 28 tab, 2 Refill(s), [facility], [facility], cm, 10/04/22 7:36:00 EST, Height/Length Dosing, 137.55, kg, 10/04/22 7:36:00 EST, Weight Dosing Start Date: 12/23/22 Status: Ordered Vyvanse 70 mg oral capsule 70 mg 1 cap, Oral, every morning, Dr. Carrera Patient, # 30 cap, 0 Refill(s), Pharmacy: [facility], 194, cm, 10/04/22 7:36:00 EST, Height/Length Dosing, 137.55, kg, 10/04/22 7:36:00 EST,Weight Dosing Start Date: 02/17/23 Stop Date: 03/19/23 Status: Ordered Problem List Condition Confirmation Course Effective Dates Status H ealth Status Informant Anxiety Confirmed 07/08/20 Active Binge-eating disorder, severe Confirmed Active Complete fecal incontinence Confirmed Active Foot callus Confirmed Active Caffeine abuse Confirmed Active Hypertension Confirmed Active Increased frequency of urination Confirmed Active Cracked skin on feet Confirmed Active Lymphedema of bilateral lower limbs Confirmed 06/22/16 Active Morbid obesity Confirmed 06/22/16 Active Obesity Confirmed Active Annual physical exam Confirmed Active Screening for colon cancer Confirmed Active Schizophrenia Confirmed 06/22/16 Active Superficial skin ulcer of lower limb Confirmed 06/22/16 Active Tachycardia Confirmed Active Urinary incontinence Confirmed Active Venous stasis ulcer of leg Confirmed 07/13/16 Active Vital Signs Most recent to oldest [Reference Range]: 1 Peripheral Pulse Rate [60-100 bpm] 81 bp m (10/25/23 9:01 AM) Blood Pressure [90-140/60-90 mmHg] 122/6 9mmHg (10/25/23 9:01 AM) Mean Arterial Pressure, Cuff [65-140 mmH g] 87 mmHg (10/25/23 9:01 AM) Weight 151.59 kg (10/25/23 9:01 AM) Weight Measured (lbs) 334.198 lb (10/25/23 9:01 AM) Weight Dosing 151.590 kg (10/25/23 9:01 AM) Height 188.59 cm (10/25/23 9:01 AM) Height/Length Measured (inches) 74.25 in ch (10/25/23 9:01 AM) BSA Measured 2.82 m2 (10/25/23 9:01 AM) Body Mass Index 42.62 kg/m2 (10/25/23 9:01 AM) Neck Circumference 18.5 cm (10/25/23 9:01 AM) Social History Social History Type Response Smoking Status Smoking tobacco use: Never tobacco user;Never entered on: 03/28/23 Sex Male Polysomnography (sleep) study * Andie Alexandra R: PERFORM Event Display: Sleep Study Authored Date: [id number] Progress note * Andie Alexandra R: PERFORM Event Display: Progress Note - Physician Authored Date: [id number] KWAKU GARVEY 07/28/2016 2:11 PM Location: [facility] Sleep Patient #: [id number] : 1980 Single / Language: Romanian / Race: White Male History of Present Illness??(Ameya Moses MD; 08/07/2016 5:51 AM) The patient is a 36 year old male who presents for a follow up visit. He is seen to review the results of his PSG. He had initially presented with a history of snoring, unrefreshing sleep, excessive daytime sleepiness, obesity, hypertension, and a crowded upper airway anatomy. The patient also has a history of schizophrenia, anxiety, and depression. He had significant difficulty with the sleep study. The patient notes he slept very little. He fell asleep relatively soon but woke up and was awake for the rest of the night. The patient lives in a shelter and is accompanied by one of his caregivers. There are no new problems at this point. Problem List/Past Medical??(Miryam Tabares; 07/28/2016 7:38 AM) Dyslipidemia (272.4 E78.5) ?? Excoriated rash (782.1 R21) ?ER note (unknown location) Benign essential hypertension (401.1 I10) ?? 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 Elevated glucose (790.29 R73.09) ?? Venous stasis ulcer of lower extremity (454.0 I83.009) ?? Overgrown toenails (703.8 L60.2) ?? Chronic depression (311 F32.9) ?? Morbid obesity with BMI of 50.0-59.9, adult (278.01 E66.01) ?Morbidly obese with an alarming weight trajectory. At this point he is gaining about 100lbs a year. Likely not a candidate for bariatric surgery given his psychiatric comorbidities, however I will look into this avenue. Not a candidate for medical therapy for the same reasons.He needs to limit his caloric intake and increase his exercise activity.We spent 30 minutes of this 60 minute visit reviewing weight loss stragies and realistic goals for the patient. We'll follow up in several months to monitor this trend. Obesity (278.00 E66.9) ?? Excessive daytime sleepiness (780.54 G47.19) ?? Frequent nocturnal awakening (780.59 G47.00) ?? Snoring (786.09 R06.83) ?? Cellulitis of right lower extremity (682.6 L03.115) ?Seen in ER 12/18/15 Urinary incontinence, unspecified type (788.30 R32) ?? Fecal incontinence (787.60 R15.9) ?? Cellulitis of foot (682.7 L03.119) ??04/10/2015 Right Medication History??(Ameya Moses MD; 08/07/2016 5:25 AM) BusPIRone HCl?? (15MG Tablet, 3 (three) Oral twice daily, Taken starting 02/04/2016) Active. (per [facility] discharge) CloNIDine HCl?? (0.3MG Tablet, 1 Oral two times daily, Taken starting 03/03/2016) Active. (dose increase per [facility] discharge) Citalopram Hydrobromide?? (20MG Tablet, 1 Oral daily, Taken starting 02/04/2016) Active. (per [facility] discharge) Enalapril-Hydrochlorothiazide?? (10-25MG Tablet, 1 (one) Oral daily for blood pressure, Taken starting 12/15/2015) Active. Latuda?? (40MG Tablet, 1 (one) Oral at bedtime, Taken starting 02/04/2016) Active. (per [facility] discharge) Nystatin?? ([id number]/GM Powder, 1 (one) External two times daily, Taken starting 03/03/2016) Active. AmLODIPine Besylate?? (10MG Tablet, 1 (one) Oral qd - daily, Taken starting 02/04/2016) Active. (dose increase per [facility] discharge) Acetaminophen?? (500MG Tablet, 2 (two) Oral Every 6 hours as needed, Taken starting 03/03/2016) Active. Docusate Sodium?? (100MG Capsule, 2 (two) Oral daily, as needed, Taken starting 03/03/2016) Active. Sennosides?? (8.6MG Tablet, 2 (two) Oral daily, as needed, Taken starting 03/03/2016) Active. AmLactin?? (12% Lotion, 1 (one) Lotion External daily as needed, Taken starting 02/10/2016) Active. Medications Reconciled?? (Verbally and with list, Patient did not bring medications) Allergies??(Miryam Tabares; 07/28/2016 7:38 AM) No Known Drug Allergies ??02/12/2013 Social History??(Miryam Tabares; 07/28/2016 7:38 AM) Alcohol Use ?Heavy alcohol use. Quit 2007 Hearing ?Hearing is normal, no difficulties. Language ?Primary language Romanian, no barriers. Living Situation/Marital Status ?Single, Lives alone. Vision ?Wears corrective lenses/contacts, vision is corrected. Tobacco Use ?Former smoker. smoked 1+ year 29-30. quit 2008 Caffeine Use ?1 soda per day Diagnostic Studies History??(Miryam Tabares; 07/28/2016 7:38 AM) Sleep Study-PSG ??06/20/2016 Vitals??(Miryam Tabares; 07/28/2016 3:04 PM) 07/28/2016 3:03 PM Weight:??499 lb?Height:??73??in?? Body Surface Area:??3.17 m?Body Mass Index:??65.83 kg/m ?? Pulse:??98 (Regular) ?P.OX:??95% (Room air) BP:??138/86 (Sitting, Left Arm, Standard) Physical Exam??(Ameya Moses MD; 08/07/2016 5:33 AM) The physical exam findings are as follows: Note:??GENERAL: Alert and oriented. RESPIRATORY: No evident respiratory distress; speaks in complete sentences. NEUROLOGICAL: Alert and oriented. No evident drowsiness. REVIEW OF STUDIES: PSG of 06/20/2016 revealed AHI=27.4/hr (RDI=85.7) with a REM related AHI=NA/hr (no REM sleep); his oxygen saturation lior was 86%; his PLMI=0.0/hr and his PLMaI=0.0/hr. He had a sinus rhythm throughout, no Peewee-Matthews respirations, and no parasomnias. His EEG showed no abnormalities in the leadsthat were monitored. NB: The patient only had 17.5 minutes total sleep time during the whole study out of 405.50 total recording time. He was supine during the whole time he slept and he had not stage 2, stage 3, or REM sleep. Thus, it is very likely that the results of this study underestimates the severity of his sleep disordered breathing. Assessment & Plan??(Ameya Moses MD; 08/07/2016 6:07 AM) Obstructive sleep apnea (327.23 G47.33) Story: Impression: Current Plans ??? CONTINUOUS POSITIVE AIRWAY PRESSURE DEVICE (CPAP) (E0601) ??? TITRATION STUDY (15772) (SEE SALMON SHEET--SHOULD BE ONLY PATIENT OF THE NIGHT AND SHOULD BE TESTED BY OUR MALE CAN CUTTER) ??? Started Zolpidem Tartrate 5MG, 1 (one) Tablet 1-2 hs prn sleep study, #3, 3 days starting 07/28/2016, No Refill. Local Order: Rx called to [facility] pharmacy ??? Begin auto CPAP 8-18 cm with ramp, heated humidity, and full face mask of choice--[facility]: discussed with patient and provided information. ??? Titration study in 5 + weeks: discussed with patient and provided information. ??? Caution with any hazardous activities if drowsy: discussed with patient and provided information. ??? Weight loss as able: discussed with patient and provided information. ??? RTC after titration study: discussed with patient and provided information. ??? Pt Education - Sleep apnea related education provided ??? Pt Education - CPAP/BIPAP related education provided. ??? Pt Education - Weight loss related measures discussed. Portal Instruction (V65.40 Z71.9) Story: Impression: Current Plans ??? Pt Education - How to access health information online: discussed with patient and provided information. Note:??Discussion: I reviewed the patient's PSG results with the patient and his caregiver. Specifically, I noted that he has, at the minimum, moderately severe (and more likely severe) obstructive sleep apnea. The uncertainty of the exact degree of his HAI is related to the minimal amount of sleephe got during the study. Given the uncertainty of his actual AHI, I recommended strongly that he consider CPAP therapy as opposed to other potential options such as an oral appliance or ENT surgery. The patient expressed the opinion that he would be able to wear a mask without any significant problem. The patient and his caregiver also felt that he is a mouth breather and a fullface mask would bemore suitable for him. He feels that he's not going to have a significant problem using that. I explained the process of obtaining a CPAP and a suitable mask. The request was made that [facility] make a house call to his usp. I noted that I would ask and they might be willing to do that. However, I did point out that the selection of fullface masks will be significantly less than it would be at the [employer] store. The patient's caregiver pointed out that it would be possible, should it be necessary, for transportation to be arranged for the patient to be seen at the store. I also spent time discussing the importance of a titration study. The patient is willing to have a second sleep night after he has obtained his CPAP and started to use it. I discussed with him his poor sleep at his last study and suggested that it may be appropriate to at least have available zolpidem should he need it. Thus, a prescription will be called to [facility] pharmacy for zolpidem. The patient will need to pick it up and bring it with him to the titration study. The patient's poorly defined level of nocturnal hypoxemia will be reassessed at the time of the study. I also discussed the compliance requirements of the patient's insurer. I noted that both [facility] and this practice would be able to closely monitor his use of the machine. The patient returns for a compliance and [id number] visit after his titration study. I spent 30 minutes with the patient, more than half of which was spent in [id number] counseling. cc: Lynne Barrett MD Signed electronically by Ameya Moses MD (07-Aug-2016 6:09 am) (physician signature image removed from display) Electronically Signed on 10/10/23 01:33 PM Andie Alexandra * Andie Alexandra R: PERFORM Event Display: Progress Note - Physician Authored Date: [id number] KWAKU GARVEY 05/31/2016 7:48 AM Location: [facility] Patient #: [id number] : 1980 Single / Language: Romanian / Race: White Male History of Present Illness??(Layne Sherman [facility]-; 06/05/2016 6:30 PM) The patient is a 36 year old male who presents to the practice today for a transition into care. The patient is transitioning into care from another physician and a summary of care was reviewed . Thepatient is seen in consultation, referred by Lynne Barrett, for evaluation of snoring and excessive daytime fatigue. Additional reasons for visit: Sleep Lab New Consult??is described as the following: CHIEF COMPLAINT: snoring, excessive daytime fatigue and non-restorative sleep HISTORY OF PRESENT ILLNESS: Kwaku Garvey is a pleasant 36 yr old male with snoring, excessive daytime sleepiness, non-restorative sleep, HTN, depression and schizophrenia. He has been told by others that he snores loudly. His bedtime is around 9:00 PM and he usually falls asleep within 15-30 mins. He often wakes during the night, at least 2-3 times, sometimes to void, other times he is not surewhy. He has a television in his bedroom and usually falls asleep with it on. He does wake to turn it off. His sleep offset is 7 am. He rarely feels rested when he wakes in the morning. He frequently naps throughout the day, 10-12 times for 30-60 minutes. His frequent daytime naps are new within thepast 6-7 months. He denies any changes with his medications. He does sleep on a regular coil mattress. He feels his sleep related symptoms mildly interfere with his daily life. He also has depression, anxiety and schizophrenia. He is prescribed buspirone, citalopram and latuda. He is followed at [facility]. He also has HTN for which he takes amlodipine, clonidine and furosemide.He takes his furosemide in the am. He is morbidly obese, does not participate in any routine exercise or follow any particular diet. He resides with a home provider, Ozzy Coronado. SUBJECTIVE QUALITY OF SLEEP RATING: Okay, fair, not refreshing SUBJECTIVE DAYTIME ALERTNESS RATING: Very sleepy, often fighting to stay awake EPWORTH SLEEPINESS SCALE: BERLIN QUESTIONNAIRE: 10/21 INSOMNIA SYMPTOMS: The patient remarks that he has had episodes where he wakes up suddenly like he was startled or scared, otherwise, no other symptoms suggestive for insomnia BREATHING SYMPTOMS: The patient does snore loudly. The patient does not report instances of waking struggling for breath or gasping for air. He has no history of significant nasal congestion at night. MOVEMENT SYMPTOMS: The patient does not toss and turn at night and his arms and legs do not jerk ortwitch while trying to go to sleep or during sleep. There is no history of aching, restless, or crawling feeling in his legs at night nor does he find it hard to keep his legs still during rest or when trying to go to sleep. He has no history of sleepwalking, sleep talking, or other activities during sleep which he cannot remember the next day. DREAM SYMPTOMS: The patient remarks that he starts to dream shortly after he falls asleep. Initially he marked on his questionnaire that he can see his dreams in the room when he is awake, however, upon further questioning and clarification, this is not what he experiences. He has no history of recurrent dreams or nightmares. He does not dream of drowning or suffocating. The patient does not see things out of the corner of his eye which prove not to be there when he looks nor does he, while driving, see things down the road that are not there. He has no history of acting out his dreams. WEAKNESS SYMPTOMS: There is no history of feeling limp, losing tone, or falling when he is very tired or during periods of strong emotion such as anger, laughter, or surprise. He has no history of having fallen asleep in a similar setting, when laughing or crying, or during physical activity. The patient has never had a sense of moving or of being disconnected from his body when he is asleep or of being unable to move when he first wakes up. DRIVING SYMPTOMS: The patient has not fallen asleep or had near-miss events while driving and he has not had an accident related to driving while he is drowsy. There is no history of his sometimes not remembering the last several mile or minutes driven or of his driving out of his aida onto the shoulder or across the centerline. Passengers have not told him that he seems to be drowsy while he is driving. NEUROCOGNITIVE SYMPTOMS: The patient has no complaint of poor or worsening memory, short concentration, or difficulty with math. He reports he is not irritable or easily annoyed when he is tired. He does have a history of anxiety and depression. Problem List/Past Medical??(Miryam Tabares; 05/31/2016 7:48 AM) Cellulitis of right lower extremity (682.6 L03.115) ?Seen in ER 12/18/15 Venous stasis ulcer of lower extremity (454.0 I83.009) ?? Elevated glucose (790.29 R73.09) ?? Chronic depression (311 F32.9) ?? Overgrown toenails (703.8 L60.2) ?? 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 Excoriated rash (782.1 R21) ?ER note (unknown location) Dyslipidemia (272.4 E78.5) ?? Peripheral edema (782.3 R60.9) ?Er 07/20/15 Benign essential hypertension (401.1 I10) ?? Morbid obesity with BMI of 50.0-59.9, adult (278.01 E66.01) ?Morbidly obese with an alarming weight trajectory. At this point he is gaining about 100lbs a year. Likely not a candidate for bariatric surgery given his psychiatric comorbidities, however I will look into this avenue. Not a candidate for medical therapy for the same reasons.He needs to limit his caloric intake and increase his exercise activity.We spent 30 minutes of this 60 minute visit reviewing weight loss stragies and realistic goals for the patient. We'll follow up in several months to monitor this trend. Urinary incontinence, unspecified type (788.30 R32) ?? Fecal incontinence (787.60 R15.9) ?? Cellulitis of foot (682.7 L03.119) ??04/10/2015 Right Medication History??(Layne Sherman, ANP-; 06/05/2016 6:33 PM) BusPIRone HCl?? (15MG Tablet, 3 (three) Oral twice daily, Taken starting 02/04/2016) Active. (per [facility] discharge) CloNIDine HCl?? (0.3MG Tablet, 1 Oral two times daily, Taken starting 03/03/2016) Active. (dose increase per [facility] discharge) Citalopram Hydrobromide?? (20MG Tablet, 1 Oral daily, Taken starting 02/04/2016) Active. (per [facility] discharge) Enalapril-Hydrochlorothiazide?? (10-25MG Tablet, 1 (one) Oral daily for blood pressure, Taken starting 12/15/2015) Active. Latuda?? (40MG Tablet, 1 (one) Oral at bedtime, Taken starting 02/04/2016) Active. (per [facility] discharge) Nystatin?? (678171IZHW/GM Powder, 1 (one) External two times daily, Taken starting 03/03/2016) Active. AmLODIPine Besylate?? (10MG Tablet, 1 (one) Oral qd - daily, Taken starting 02/04/2016) Active. (dose increase per [facility] discharge) Acetaminophen?? (500MG Tablet, 2 (two) Oral Every 6 hours as needed, Taken starting 03/03/2016) Active. Docusate Sodium?? (100MG Capsule, 2 (two) Oral daily, as needed, Taken starting 03/03/2016) Active. Sennosides?? (8.6MG Tablet, 2 (two) Oral daily, as needed, Taken starting 03/03/2016) Active. AmLactin?? (12% Lotion, 1 (one) Lotion External daily as needed, Taken starting 02/10/2016) Active. Medications Reconciled?? (Verbally and with list, Patient did not bring medications) Allergies??(Miryam Tabares; 05/31/2016 7:49 AM) No Known Drug Allergies ??02/12/2013 Family History??(Layne Sherman, BARRY-BC; 06/05/2016 6:33 PM) Cancer ?Father. Social History??(Miryam Tabares; 05/31/2016 1:07 PM) Alcohol Use ?Heavy alcohol use. Quit 2007 Caffeine Use ?1 soda per day Hearing ?Hearing is normal, no difficulties. Language ?Primary language Romanian, no barriers. Living Situation/Marital Status ?Single, Lives alone. Vision ?Wears corrective lenses/contacts, vision is corrected. Tobacco Use ?Former smoker. smoked 1+ year [age]. quit 2007 Review of Systems??(Layne Sherman ANP-BC; 06/05/2016 6:36 PM) Note:?GENERAL: significant weight gain, excessive daytime fatigue, snoring HEAD: no recent head injuries. EYES: no recent change in vision, no blurred vision, pain, redness, spots, flashing lights. EARS: no recent change in hearing, no pain, discharge, tinnitus, vertigo. NOSE: no difficulty breathing through nose, no stuffiness, discharge, hay fever, sinus problems, nosebleeds. THROAT/MOUTH: no recent changes in dental conditions, no sore throat, dry mouth, hoarseness, bleeding gums. NECK: no recent trauma, swelling of the neck or thyroid, lumps, swollen glands, pain or stiffness. CHEST: no recent trauma, pain with breathing or chest wall motion. RESP: no cough, sputum, wheezing, hemoptysis, pneumonia, asthma, bronchitis, emphysema, pleurisy. CARDIO: no known heart disease, high blood pressure, chest pain, palpitations, heart murmurs, dyspnea, orthopnea, PND, circulatory problems. ABD/GI: no recent change in appetite or bowel habits, no difficulty swallowing, no pain, nausea, vomiting, indigestion, diarrhea, hematemesis, blood in stools. : nocturia MUSC/EXT: no recent trauma, back pain, extremity or joint pain, decrease in range of motion or stiffness, weakness, edema, varicosities, claudication, DVTs. NEURO: no fainting, blackouts, seizures, paralysis, loss of sensation, numbness or pins and needles, tremors, difficulty speaking. CUTAN: no rashes, itching, lumps, sores, dryness. Vitals??(Layne Sherman [facility]; 06/05/2016 6:33 PM) 05/31/2016 1:13 PM Weight:??499.5 lb?Height:??74??in?? Body Surface Area:??3.21 m?Body Mass Index:??64.13 kg/m ?? Pulse:??127 (Regular) ?P.OX:??97% (Room air) BP:??140/86 (Sitting, Right Arm, Large) ESS , BQ 3/3 Physical Exam??(Layne Sherman [facility]; 06/05/2016 6:38 PM) The physical exam findings are as follows: Note:??GENERAL: The patient is alert and oriented, morbidly obese HEAD: Normocephalic without any evidence of trauma, EYES: Pupils equally round and reactive to light and accommodation. Sclera anicteric EARS: Normal tympanic membranes and canals. THROAT/MOUTH: The patient has normal mucous membrane moisture. Malampati Class IV, tongue scalloping, crowded airway NECK: Supple without palpable nodes. The patient has a normal thyroid that is nontender without masses. CARDIO: Regular rhythm with no murmur, gallops, or thrills. There are symmetrical upper and lower extremity pulses. LUNGS: Bilaterally good breath sounds with no rales, rhonchi or wheezes. ABD: obese MUSC: The patient has full range of motion of upper and lower extremities. + edema. NEURO: Patient is alert and oriented. The gait is normal. PSYCH: The patient has normal mood and affect and displays normal thought processes. CUTAN: No overt lesions. Assessment & Plan??(Ameya Moses MD; 06/06/2016 5:55 AM) Snoring (786.09 R06.83) Story: Impression: Current Plans ??? DIAGNOSTIC (STANDARD) PSG (69201) ??? Pt Education - Sleep apnea related education provided ??? Pt Education - CPAP/BIPAP related education provided. ??? Pt Education - ENT Surgery related education provided. ??? Pt Education - Mask related education provided. ??? Pt Education - Oral Appliance related education provided. ??? Pt Education - Weight loss related measures discussed. Excessive daytime sleepiness (780.54 G47.19) Story: Impression: Obesity (278.00 E66.9) Story: Impression: Non-restorative sleep (780.59 G47.8) Story: Impression: Frequent nocturnal awakening (780.59 G47.00) Story: Impression: Portal Instruction (V65.40 Z71.9) Story: Impression: Current Plans ??? Pt Education - How to access health information online: discussed with patient and provided information. Note:??Discussion: Patient with loud disruptive snoring, excessive daytime sleepiness, frequent nocturnal awakenings, non restorative sleep, neurocognitive changes, crowded airway and a BMI 64.13. The patient has symptoms and an exam compatable with sleep apnea. He does not give a history suggestive of movement disorder and nothing to suggest narcolepsy or cataplexy. He is an excellent candidate for PSG. Given the fact that he has a history strongly suggestive for sleep apnea and the fact that he has a significant history for schizophrenia, which in this particular group of patients are oftenfound to have chronic and severe disruptions of sleep, an in-lab study should be performed. Today we had a thorough discussion about the pathophysiology of obstructive sleep apnea. The sleep study procedure was discussed with this patient and he is in good understanding of the plan of care. He willneed to return after his PSG to discuss the results. The plan of care was also discussed with his gericare aide, Ozzy Coronado. Today I spent 60 minutes with the patient, greater than 50% of the time was spent in counseling. Thank you for the courtesy of this referral. cc: Lynne Barrett MD History and Physical Note Chart Review Note??(Ameya Moses MD; 06/06/2016 5:55 AM) I have reviewed the history and physical note and findings. Signed electronically by Ameya Moses MD (06-Jun-2016 5:55 am) (physician signature image removed from display) Electronically Signed on 10/10/23 01:36 PM Andie Alexandra Patient Care team information Care Team Personnel Name: Mayo Wilson MD Position: Physician Member Role: Informed Provider Address: Address: [place] [address]- Care Team Related Persons Name: PATRICK DRIVER Address: Home [address] [facility] [id number] Name: LEIF GARVEY Name: SUZIE GARVEY Address: [address] [address] Address: [address] [id number]
--- OUTSIDE RECORDS SUMMARY | 2024-09-02 16:13 | XMS_ITS | Encounter Summary ---
Author Organization [facility] [place] [address] Care Team Providers Care Finishing Technician Name Role Phone Lynne Barrett MD Primary Care Provider [phone] Encounter Details Date Type Department Care Team (Late st Contact Info) Description 12/12/2019 Telephone Weight and Wellness at [facility] [address] [place] [phone] Diamond Collins Social History Tobacco Use Types Packs/Day Years Used Date Smoking Tobacco: Former Smokeless Tobacco: Never Comments:only smokes for 6 m onths -15 years ago Sex and Gender Information Value Date Recorded Sex Assigned at Not on file Gender Identity Not on file Sexual Orientation Not on file documented as of this encounter Plan of Treatment Not on file documented as of this encounter Visit Diagnoses Not on filedocumented in this encounter Care Teams Finishing Technician Relationship Specialty Start Date End Date Lynne Barrett MD [address] [place] [address] PCP - General Family Medicine 06/02/16 12/25/19 documented as of this encounter
--- OUTSIDE RECORDS SUMMARY | 2024-09-02 16:13 | XMS_ITS | Encounter Summary ---
Author Organization [facility] [place] [address] Care Team Providers Care Medical Registrar Name Role Phone Lynne Barrett MD Primary Care Provider [phone] Encounter Details Date Type Department Care Team (Late st Contact Info) Description 09/11/2018 External Results Weight and Wellness at [address] [phone] Herber Rutherford, RN Social History Tobacco Use Types Packs/Day Years Used Date Smoking Tobacco: Never Sex and Gender Information Value Date Recorded Sex Assigned at Not on file Gender Identity Not on file Sexual Orientation Not on file documented as of this encounter Plan of Treatment Not on file documented as of this encounter Procedures Procedure Name Priority Date/Time Associated Diagnosis Comments [facility] EXTERNAL RESULT PANEL Routine 09/07/2018 documented in this encounter Results * (ABNORMAL) [facility] External Results (09/07/2018) Cholesterol, Total 175 Triglyceride 157(ExtH) Comment:10-150 HDL Cholesterol 31(ExtL) Comment:40-60 LDL Cholesterol 113 Blood Urea Nitrogen 13 Creatinine 1.1 Aspartate Aminotransferase 54 Alanine Aminotransferase 54 Alkaline Phosphatase 70 09/07/2018 Historical Provider POINT OF CARE ADAMARIS T ORDERABLES documented in this encounter Visit Diagnoses Not on filedocumented in this encounter Care Teams Medical Registrar Relationship Specialty Start Date End Date Lynne Barrett MD [address] [place] [address] PCP - General Family Medicine 06/02/16 12/25/19 documented as of this encounter
--- OUTSIDE RECORDS SUMMARY | 2024-09-02 16:13 | XMS_ITS | Encounter Summary ---
Author Organization [facility] Address [facility] [place] [address] Care Team Providers Care Feather Sawyer Name Role Phone Lynne Barrett MD Primary Care Provider [phone] Encounter Details Date Type Department Care Team (Late st Contact Info) Description 03/21/2019 Telephone [place] [address] Vy Dye Social History Tobacco Use Types Packs/Day Years Used Date Smoking Tobacco: Former Smokeless Tobacco: Never Comments:only smokes for 6 m onths -15 years ago Sex and Gender Information Value Date Recorded Sex Assigned at Not on file Gender Identity Not on file Sexual Orientation Not on file documented as of this encounter Miscellaneous Notes * Telephone Encounter - Vy Dye - 03/21/2019 11:36 AM EDT 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 Lassiter reviewed it. No cancer is noted. Follow up PRN Report faxed to [facility]ae [facility] manager business planning [phone] HER phone number is [phone] All questions were answered. He is healing great with no concerns. DIAGNOSIS A - Left lateral aspect of tongue, biopsy: - Hyperkeratotic squamous mucosa with papillary-like change and mild atypia. (see Discussion.) - Superficial presence of fungal yeast and hyphae forms, consistent with Macy spp. Electronically signed by: MD Otero Jason R. Verified: 03/13/2019 Pathologist Performed at: -[facility] [place], [place], [place] DISCUSSION The possibility of a low-risk HPV-mediated lesion (e.g. papilloma or verruca) is not entirely excluded; however, the morphology is not diagnostic. The differential diagnosis also includes a benign fibroepithelial polyp or hypertrophic lingual papillae with secondary changes. Yeast forms are seen only in the superficial keratotic debris. No definite squamous dysplasia is identified. If the lesion persists or recurs following resolution of Macy and/or biopsy-related changes, consideration of re-biopsy may be appropriate as clinically indicated. This case was reviewed at a departmental consensus conference by documented in this encounter Plan of Treatment Not on file documented as of this encounter Visit Diagnoses Not on filedocumented in this encounter Care Teams Feather Sawyer Relationship Specialty Start Date End Date Lynne Barrett MD [address] [place] [address] PCP - General Family Medicine 06/02/16 12/25/19 documented as of this encounter
--- OUTSIDE RECORDS SUMMARY | 2024-09-02 16:13 | XMS_ITS | Encounter Summary ---
Author Organization [facility] [place] [address] Care Team Providers Care Ball Assembler Name Role Phone Lynne Barrett MD Primary Care Provider [phone] Reason for Visit * Reason Onset Date Comments Appointment 08/07/2019 Encounter Details Date Type Department Care Team (Late st Contact Info) Description 08/07/2019 Telephone Weight and Wellness at [address] [phone] Mikey Cardoza Appointment Social History Tobacco Use Types Packs/Day Years Used Date Smoking Tobacco: Former Smokeless Tobacco: Never Comments:only smokes for 6 m onths -15 years ago Sex and Gender Information Value Date Recorded Sex Assigned at Not on file Gender Identity Not on file Sexual Orientation Not on file documented as of this encounter Miscellaneous Notes * Telephone Encounter - Mikey Cardoza - 08/07/2019 8:09 AM EST Caller and relationship to patient (if other than patient): Kwaku Phone: Best time to reach caller: after 10am today; ok to leave a message Message or Reason for Call: Kwaku needed to cancel his apt on Monday due to a conflict. Please call him back to reschedule. Appt Needed and Reason: f/u Provider: Reema Izaguirre MD documented in this encounter Plan of Treatment Not on file documented as of this encounter Visit Diagnoses Not on filedocumented in this encounter Care Teams Ball Assembler Relationship Specialty Start Date End Date Lynne Barrett MD [address] [place] [address] PCP - General Family Medicine 06/02/16 12/25/19 documented as of this encounter
--- OUTSIDE RECORDS SUMMARY | 2024-09-02 16:13 | XMS_ITS | Encounter Summary ---
Author Organization [facility] Address [facility] [place] [address] Care Team Providers Care Hospital Receiving Clerk Name Role Phone Lynne Barrett MD Primary Care Provider [phone] Encounter Details Date Type Department Care Team (Late st Contact Info) Description 03/07/2019 4:45 PM EDT Procedure visit [place] [address] Terry Lassiter MD [facility] [address] [facility] [place] [address] Papilloma (Primary Dx) Social History Tobacco Use Types Packs/Day Years Used Date Smoking Tobacco: Former Smokeless Tobacco: Never Comments:only smokes for 6 m onths -15 years ago Sex and Gender Information Value Date Recorded Sex Assigned at Not on file Gender Identity Not on file Sexual Orientation Not on file documented as of this encounter Progress Notes * Terry Lassiter MD - 03/07/2019 4:45 PM EDT The patient was appropriately identified and the procedure as well as expected benefits and potential risks and complications were reviewed. Consent was obtained and topical anesthetic with benzocaine was applied. The surgical site was anesthetized with 1cc's of 2% xylocaine with 1/100,000 epinephrine. An eliptical incision was used to excise a 4 mm papilloma on the left lateral aspect of the tongue. Good hemostasis was obtained and the surgical site was closed with 4.0 suture in figure 8 fashion. The specimen was sent to pathology for microscopic evaluation. The procedure was well tolerated joseph complete set of post operative instructions was reviewed with the patient and caretakers. The patient was asked to contact us if they had any subsequent questions and follow up arrangementswere made. documented in this encounter Plan of Treatment Not on file documented as of this encounter Procedures Procedure Name Priority Date/Time Associated Diagnosis Comments SPECIMEN TO PATHOLOGY Routine 03/07/2019 5:59 PM EDT Papilloma SURGICAL PATHOLOGY REPORT Routine 03/07/2019 5:15 PM EDT documented in this encounter Results * Specimen to Pathology (03/07/2019 5:59 PM EDT) AP Specimen 03/07/2019 5:59 PM EDT 03/07/2019 5:59 PM EDT Narrative [facility] - 03/07/2019 5:59 PM EDT Specimen requisition ordered. ??Separate Pathology report to follow Terry Lassiter MD PATHOLOGY/CYTOLOGY O RDERABLES [facility] [place] [id number] * Surgical Pathology Report (03/07/2019 5:15 PM EDT) Final Diagnosis [id number] ? Location: 5B The signing pathologist has (i) examined the relevant preparation(s) for the specimen(s) and (ii) rendered or confirmed the diagnosis(es). . ?Molecular Genetics RESULTS TEST: ??Human Papillomavirus (HPV) Low-Risk Genotyping Analysis INDICATION: ?? Papilloma or verruca. SPECIMEN: ??Left lateral aspect of tongue (Block A) RESULTS: ??Negative for all low-risk HPV genotypes analyzed INTERPRETATION: Results indicate that the submitted tissue contained none of the 14 low-risk HPV types detected by this assay. Not all low-risk HPV genotypes are included in this test. METHODS: Highly purified genomic DNA was extracted from a formalin fixed paraffin embedded tissue section after lysing of the cells. HPV genotyping was performed using the [employer] MeltPro Low-Risk HPV Genotyping Test that assays for the qualitative detection of 14 low-risk HPV genotypes in a variety of tissues. This test uses PCR followed by high-resolution melting curve analysis for the detection of 14 low-risk HPV types (6, 11, 26, 40, 42, 43, 44, 53, 54, 61, 69, 70, 72, and 81). Low-risk HPV subtypes are differentiated in one single reaction with a sensitivity of 200 copies per reaction. LIMITATIONS AND DISCLAIMERS: ??Although unlikely, rare variants (known or unknown) have the potential to interfere with the performance of this test, producing false negative or false positive results. ??When genotyping results are not consistent with other clinical observations or test results, additional testing should be considered. This test was developed and its performance characteristics determined by the [facility] at [facility]. It has not been cleared or approved by the FDA. The laboratory is regulated under CLIA as qualified to perform high-complexity testing. This test is used for clinical purposes. It should not be regarded as investigational or for research. Electronically signed by: ??Danii Holden, Crow Conteh Verified: ??03/28/2019 ?Molecular Pathologist Performed at: ??-[facility] Dept. of Pathology, [place], [place] ?Surgical Pathology DIAGNOSIS A - Left lateral aspect of tongue, biopsy: - Hyperkeratotic squamous mucosa with papillary-like change and ?mild atypia. 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 Electronically signed by: ??MD Shanna, Reji Morales Verified: ??03/13/2019 ?Pathologist Performed at: ??-[facility] Dept. of Pathology, [place], [place] DISCUSSION The possibility of a low-risk HPV-mediated lesion (e.g. papilloma or verruca) is not entirely excluded; however, the morphology is not diagnostic. The differential diagnosis also includes a benign fibroepithelial polyp or hypertrophic lingual . DISCUSSION papillae with secondary changes. Yeast forms are seen only in the superficial keratotic debris. No definite squamous dysplasia is identified. If the lesion persists or recurs following resolution of Macy and/or biopsy-related changes, consideration of re-biopsy may be appropriate as clinically indicated. This case was reviewed at a departmental consensus conference by Dr. Hutchinson and Dr. Henry. ADDITIONAL STUDIES Whole slide scan: sales representative livestock slide(s) Multiple deeper levels examined. CLINICAL INFORMATION Specimen Submitted: A - Left lateral aspect of tongue Clinical History and Diagnosis: Papilloma SPECIMEN PROCESSING A - Labeled/Fixative: Patient's demographics, formalin. Quantity/Size: Single, 0.5 x 0.5 cm. Tissue Description: [place]-red mucosa with a 0.5 x 0.4 x 0.2 cm palencia-white verrucous lesion. Sections/Processin g: Inked, bisected and entirely submitted in 1 cassette labeled A1. ??jmb 03/28/2019 6:18 PM EDT [facility] MOUTH REGION STRUCTURE / Unknown 03/07/2019 5:15 PM EDT 03/07/2019 5:15 PM EDT Terry Lassiter MD PATHOLOGY/CYTOLOGY O RDERABLES [facility] [place] [address] documented in this encounter Visit Diagnoses Diagnosis Papilloma- Primary documented in this encounter Care Teams Hospital Receiving Clerk Relationship Specialty Start Date End Date Lynne Barrett MD [address] [place] [address] PCP - General Family Medicine 06/02/16 12/25/19 documented as of this encounter
--- OUTSIDE RECORDS SUMMARY | 2024-09-02 16:13 | XMS_ITS | Continuity of Care Document ---
Author Organization [facility] Address [address] [place] [address] Care Team Providers Care Audograph Operator Name Role Phone Mayo Wilson Primary Care Physician Encounter [facility] Date(s): 10/04/22 - 10/04/22 [facility] [address] [place] [address] Encounter Diagnosis Leg varicosity w ulcer(Discharge Diagnosis) - 10/04/22 Non-pressure chronic ulcer of unspecified part of unspecified lower leg with unspecified severity(Discharge Diagnosis) - 10/04/22 Discharge Disposition: Home or Self Care Attending Physician: Donald Adame MD Admitting Physician: Donald Adame MD Allergies, Adverse Reactions, Alerts No Known Medication Allergies Assessment and Plan Future Appointments Functional Status 10/04/22 Other exposure to Infectious Disease Non e Immunizations Given and Recorded Vaccine Date Status Refusal Reason SARS-CoV-2 (COVID-19) mRNA-1273 vaccine 01/08/21 R ecorded SARS-CoV-2 (COVID-19) mRNA-1273 vaccine 12/11/20 R ecorded influenza virus vaccine, live 07/08/20 Recorded tetanus/diphth/pertuss (Tdap) adult/adol 07/08/20 Recorded influenza virus vaccine, inactivated 05/23/13 Abel rded Medications busPIRone 30 mg oral tablet 1 tab, Oral, BID, # 56 tab, 0 Refill(s), Pharmacy: [facility] Start Date: 09/05/22 Status: Ordered citalopram 40 mg oral tablet 1 tab, Oral, every night at bedtime, # 28 tab, 0 Refill(s), Pharmacy: [facility] Start Date: 09/05/22 Status: Ordered cloNIDine 0.3 mg oral tablet See Instructions, TAKE 2 TABLETS BY MOUTH EVERY MORNING AND TAKE 1 TABLET AT BEDTIME, # 84 tab, 0 Refill(s), Pharmacy: [facility] [id number] Start Date: 08/31/22 Status: Ordered furosemide 40 mg oral tablet 40 mg = 1 tab, Oral, BID, 56 tab, # 60 tab, 11 Refill(s), Pharmacy: [facility] Start Date: 07/07/22 Status: Ordered Latuda 40 mg oral tablet 1 tab, Oral, every night at bedtime, # 30 tab, 2 Refill(s), Pharmacy: [facility] Start Date: 09/01/22 Status: Ordered oxybutynin 10 mg/24 hr oral tablet, extended release 10 mg = 1 tab, Oral, Daily, # 90 tab, 3 Refill(s), Pharmacy: [facility] Start Date: 08/04/22 Status: Ordered Vitamin B-12 1000 mcg oral tablet 1,000 mcg = 1 tab, Oral, Daily, 28 unknown unit, 0 Refill(s) Start Date: 01/07/22 Status: Ordered Vitamin B12 1000 mcg oral tablet 1,000 mcg = 1 tab, Oral, Daily, # 30 tab, 2 Refill(s), Pharmacy: [facility] Start Date: 09/01/22 Stop Date: 11/30/22 Status: Ordered Vitamin D3 5000 intl units oral tablet 1 tab, Oral, Daily, # 28 tab, 0 Refill(s), Pharmacy: [facility] [id number] Start Date: 09/29/22 Status: Ordered Vyvanse 20 mg oral capsule 20 mg = 1 cap, Oral, every morning, # 30 cap, 0 Refill(s), Pharmacy: [facility] Start Date: 05/12/22 Status: Ordered Vyvanse 40 mg oral capsule 40 mg = 1 cap, Oral, every morning, # 30 cap, 0 Refill(s), Pharmacy: [facility] Start Date: 09/29/22 Stop Date: 10/29/22 Status: Ordered Vyvanse 40 mg oral capsule 40 mg = 1 cap, Oral, every morning, # 30 cap, 0 Refill(s), Pharmacy: [facility] Start Date: 05/26/22 Status: Ordered Problem List Condition Confirmation Course Effective Dates Status Health St atus Informant Anxiety Confirmed 07/08/20 Active Binge-eating disorder, severe Confirmed Active Complete fecal incontinence Confirmed Active Increased frequency of urination Confirmed Active Obesity Confirmed Active Urinary incontinence Confirmed Active Results Laboratory List Name Date CBC w/ Diff 10/04/22 Comprehensive Metabolic Panel (CMP) 10/04 Automated Diff 10/04/22 Most recent to oldest [Reference Range]: 1 WBC [5.0-10.0 x10^3/mcL] 8.0 x10^3/mcL (10/04/22 8:15 AM) RBC [4.6-6.0 x10^6/mcL] 5.6 x10^6/mcL (10/04/22 8:15 AM) Neutro Auto [40.0-75.0 %] 70.9 % (10/04/22 8:15 AM) Lymph Auto [20.0-50.0 %] 18.5 % *LOW* (10/04/22 8:15 AM) Wheeler Auto [2.0-15.0 %] 9.4 % (10/04/22 8:15 AM) Basophil Auto [0.0-1.0 %] 0.4 % (10/04/22 8:15 AM) BUN [7-18 mg/dL] 8 mg/dL (10/04/22 8:15 AM) Glucose Level [74-106 mg/dL] 101 mg/dL (10/04/22 8:15 AM) Potassium Level [3.5-5.1 mmol/L] 3.9 mmo l/L (10/04/22 8:15 AM) MCV [80.0-96.0] 89.4 (10/04/22 8:15 AM) AST [15-37 unit/L] 24 unit/L (10/04/22 8:15 AM) ALT [16-63 unit/L] 29 unit/L (10/04/22 8:15 AM) MCHC [31.0-35.0 g/dL] 34.1 g/dL (10/04/22 8:15 AM) Sodium Level [136-145 mmol/L] 138 mmol/L (10/04/22 8:15 AM) Hct [41.0-51.0 %] 49.9 % (10/04/22 8:15 AM) Calcium Level [8.5-10.1 mg/dL] 10.0 mg/d L (10/04/22 8:15 AM) Albumin Level [3.4-5.0 g/dL] 4.2 g/dL (10/04/22 8:15 AM) Protein Total [6.4-8.2 g/dL] 8.8 g/dL *HI* (10/04/22 8:15 AM) MCH [26.0-32.0 pg] 30.5 pg (10/04/22 8:15 AM) Neutro Absolute 5.7 x10^3/mcL *NA* (10/04/22 8:15 AM) Bilirubin Total [0.2-1.0 mg/dL] 0.7 mg/d L (10/04/22 8:15 AM) Hgb [14.0-18.0 g/dL] 17.0 g/dL (10/04/22 8:15 AM) Alk Phos [46-146 unit/L] 84 unit/L (10/04/22 8:15 AM) Platelets [130-450 x10^3/mcL] 369 x10^3/ mcL (10/04/22 8:15 AM) CO2 [21-32 mmol/L] 27 mmol/L (10/04/22 8:15 AM) eGFR Non-AA [>=60] 76 (10/04/22 8:15 AM) eGFR AA [>=60] 76 (10/04/22 8:15 AM) Chloride Level [98-107 mmol/L] 101 mmol/ L (10/04/22 8:15 AM) RDW-CV [11.5-17.0 %] 12.3 % (10/04/22 8:15 AM) Imm Gran Auto [0.0-0.9 %] 0.4 % (10/04/22 8:15 AM) Creatinine Level [0.70-1.30 mg/dL] 1.22 mg/dL (10/04/22 8:15 AM) Eos, Auto [1.0-6.0 %] 0.4 % *LOW* (10/04/22 8:15 AM) Vital Signs Most recent to oldest [Reference Range]: 1 Temperature Temporal Artery [36-38 Deg C ] 37.2 Deg C (10/04/22 7:28 AM) Peripheral Pulse Rate [60-100 bpm] 78 bp m (10/04/22 7:28 AM) Respiratory Rate [12-24 br/min] 18 br/mi n (10/04/22 7:28 AM) Blood Pressure [90-140/60-90 mmHg] 166/9 0mmHg *HI* (10/04/22 7:28 AM) Weight Dosing 137.55 kg (10/04/22 7:36 AM) Weight Estimated 137.55 kg (10/04/22 7:28 AM) Height/Length Dosing 194.000 cm (10/04/22 7:36 AM) Height/Length Estimated 194.000 cm (10/04/22 7:28 AM) Social History Social History Type Response Smoking Status Smoking tobacco use: Never tobacco user;Never entered on: 01/07/22 Sex Male Hospital Discharge Instructions Patient Education 10/04/2022 09:02:43 Venous Ulcer Venous Ulcer A venous ulcer is a shallow sore on your lower leg that is caused by poor circulation in your veins. This condition used to be called stasis ulcer. Venous ulcer is the most common type of lower leg ulcer. You may have venous ulcers on one leg or on both legs. The area where this condition most commonly develops is around the ankles. A venous ulcer may last for a long time (chronic ulcer) or it may return repeatedly (recurrent ulcer). What are the causes? A venous ulcer may be caused by any condition that causes poor blood flow in your legs. Veins have valves that help return blood to the heart. If these valves do not work properly: ??? Blood can flow backward and pool in the lower legs. ??? Blood can then leak out of your veins, which can irritate your skin. ??? Irritation can cause a break in the skin, which becomes a venous ulcer. What increases the risk? You are more likely to develop this condition if you: ??? Are 65 years of age or older. ??? Are female. ??? Are overweight. ??? Are not active. ??? Have had a leg ulcer in the past. ??? Have varicose veins. ??? Have clots in your lower leg veins (deep vein thrombosis). ??? Have inflammation of your leg veins (phlebitis). ??? Have recently had a . ??? Use products that contain nicotine or tobacco. What are the signs or symptoms? The main symptom of this condition is an open sore near your ankle. Other symptoms may include: ??? Swelling. ??? Thickening of the skin. ??? Fluid leaking from the ulcer. ??? Bleeding. ??? Itching. ??? Pain and swelling that gets worse when you stand up and feels better when you raise your leg. ??? Blotchy skin. ??? Darkening of the skin. How is this diagnosed? Your health care provider may suspect a venous ulcer based on your medical history and your risk factors. He or she may: ??? Do a physical exam. ??? Do other tests, such as: ??? Measuring blood pressure in your arms and legs. ??? Using sound waves (ultrasound) to measure blood flow in your leg veins. How is this treated? This condition may be treated by: ??? Keeping your leg raised (elevated). ??? Wearing a type of bandage or stocking to compress the veins of your leg (compression therapy). ??? Taking medicines to improve blood flow. ??? Taking antibiotic medicines to treat infection. ??? Cleaning your ulcer and removing any tissue from the wound (debridement). ??? Placing various types of medicated bandages (dressings) or medicated wraps on your ulcer. ??? Surgery to close the wound using a piece of skin taken from another area of your body (graft). This is only done for wounds that are deep or hard to heal. You may need to try several different types of treatment to get your venous ulcer to heal. Healing may take a long time. Follow these instructions at home: Medicines ??? Take or apply [id number] and prescription medicines only as told by your health care provider. ??? If you were prescribed an antibiotic medicine, take it as told by your health care provider. Donot stop using the antibiotic even if you start to feel better. ??? Ask your health care provider if you should take aspirin before long trips. Wound care ??? Follow instructions from your health care provider about how to take care of your wound. Make sure you: ??? Wash your hands with soap and water before and after you change your bandage (dressing). If soap and water are not available, use hand case supervisor. ??? Change your dressing as told by your health care provider. ??? If you had a skin graft, leave stitches (sutures) in place. These may need to stay in place for2 weeks or longer. ??? Ask when you should remove your dressing. If your dressing is dry and sticks to your leg when you try to remove it, moisten or wet the dressing with saline solution or water so that the dressing can be removed without harming your skin or wound tissue. ??? When you are able to remove your dressing, check your wound every day for signs of infection. Have a caregiver do this for you if you are not able to do it yourself. Check for: ??? More redness, swelling, or pain. ??? More fluid or blood. ??? Warmth. ??? Pus or a bad smell. Activity ??? Avoid sitting for a long time without moving. Get up to take short walks every 1???2 hours. This is important to improve blood flow in your legs. Ask for help if you feel weak or unsteady. ??? Ask your health care provider what level of activity is safe for you. ??? Rest with your legs raised (elevated) during the day. If possible, elevate your legs above the level of your heart for 30 minutes, 3???4 times a day, or as told by your health care provider. ??? Do not sit with your legs crossed. General instructions ??? Wear elastic stockings, compression stockings, or support hose as told by your health care provider. ??? Raise the foot of your bed as told by your health care provider. ??? Do not use any products that contain nicotine or tobacco, such as cigarettes, e-cigarettes, andchewing tobacco. If you need help quitting, ask your health care provider. ??? Keep all follow-up visits as told by your health care provider. This is important. Contact a health care provider if: ??? Your ulcer is getting larger or is not healing. ??? Your pain gets worse. Get help right away if you have: ??? More redness, swelling, or pain around your ulcer. ??? More fluid or blood coming from your ulcer. ??? Warmth in the area around your ulcer. ??? Pus or a bad smell coming from your ulcer. ??? A fever. Summary ??? A venous ulcer is a shallow sore on your lower leg that is caused by poor circulation in your veins. ??? Follow instructions from your health care provider about how to take care of your wound. ??? Check your wound every day for signs of infection. ??? Take rlkg-vbq-twhurfr and prescription medicines only as told by your health care provider. ??? Keep all follow-up visits as told by your health care provider. This is important. This information is not intended to replace advice given to you by your health care provider. Make sure you discuss any questions you have with your health care provider. Document Revised: 04/04/2019 Document Reviewed: 04/04/2019 H2020 Patient Education ?? 2021 [employer]. 10/04/2022 09:02:39 Stasis Dermatitis Stasis Dermatitis Stasis dermatitis is a long-term (chronic) skin condition that happens when veins can no longer pump blood back to the heart (poor circulation). This condition causes a red or brown scaly rash or sores (ulcers) from the pooling of blood (stasis). This condition usually affects the lower legs. It may affect one leg or both legs. Without treatment, severe stasis dermatitis can lead to other skin conditions and infections. What are the causes? This condition is caused by poor circulation. What increases the risk? You are more likely to develop this condition if: ??? You are not very active. ??? You stand for long periods of time. ??? You have veins that have become enlarged and twisted (varicose veins). ??? You have leg veins that are not strong enough to send blood back to the heart (venous insufficiency). ??? You have had a blood clot. ??? You have been many times. ??? You have had vein surgery. ??? You are obese. ??? You have heart or kidney failure. ??? You are 50 years of age or older. ??? You have had injuries to your legs in the past. What are the signs or symptoms? Common early symptoms of this condition include: ??? Itchiness in one or both of your legs. ??? Swelling in your ankle or leg. This might get better overnight but be worse again during the day. ??? Skin that looks thin on your ankle and leg. ??? Red or brown ibarra that develop slowly. ??? Skin that is dry, cracked, or easily irritated. ??? Red, swollen skin that is sore or has a burning feeling. ??? An achy or heavy feeling after you walk or stand for long periods of time. ??? Pain. Later and more severe symptoms of this condition include: ??? Skin that looks shiny. ??? Small, open sores (ulcers). These are often red or purple and leak fluid. ??? Skin that feels hard. ??? Severe itching. ??? A change in the shape or color of your lower legs. ??? Severe pain. ??? Difficulty walking. How is this diagnosed? This condition may be diagnosed based on: ??? Your symptoms and medical history. ??? A physical exam. You may also have tests, including: ??? Blood tests. ??? Imaging tests to check blood flow (Doppler ultrasound). ??? Allergy tests. You may need to see a health care provider who specializes in skin diseases (fashion styling intern). How is this treated? This condition may be treated with: ??? Compression stockings or an elastic wrap to improve circulation. ??? Medicines, such as: ??? Corticosteroid creams and ointments. ??? Non-corticosteroid medicines applied to the skin (topical). ??? Medicine to reduce swelling in the legs (diuretics). ??? Antibiotics. ??? Medicine to relieve itching (antihistamines). ??? A bandage (dressing). ??? A wrap that contains zinc and gelatin (Unna boot). Follow these instructions at home: Skin care ??? Moisturize your skin as told by your health care provider. Do not use moisturizers with fragrance. This can irritate your skin. ??? Apply a cool, wet cloth (cool compress) to the affected areas. ??? Do not scratch your skin. ??? Do not rub your skin dry after a bath or shower. Gently pat your skin dry. ??? Do not use scented soaps, detergents, or perfumes. Medicines ??? Take or use ascc-nod-agpbfzb and prescription medicines only as told by your health care provider. ??? If you were prescribed an antibiotic medicine, take or use it as told by your health care provider. Do not stop taking or using the antibiotic even if your condition improves. Activity ??? Walk as told by your health care provider. Walking increases blood flow. ??? Do calf and ankle exercises throughout the day as told by your health care provider. This will help increase blood flow. ??? Raise (elevate) your legs above the level of your heart when you are sitting or lying down. Lifestyle ??? Work with your health care provider to lose weight, if needed. ??? Do not cross your legs when you sit. ??? Do not stand or sit in one position for long periods of time. ??? Wear comfortable, loose-fitting clothing. Circulation in your legs will be worse if you wear tight pants, belts, and waistbands. ??? Do not use any products that contain nicotine or tobacco, such as cigarettes, e-cigarettes, andchewing tobacco. If you need help quitting, ask your health care provider. General instructions ??? If you were asked to use one of the following to help with your condition, follow instructions from your health care provider on how to: ??? Remove and change any dressing. ??? Wear compression stockings. These stockings help to prevent blood clots and reduce swelling in your legs. ??? Wear the Unna boot. ??? Keep all follow-up visits as told by your health care provider. This is important. Contact a health care provider if: ??? Your condition does not improve with treatment. ??? Your condition gets worse. ??? You have signs of infection in the affected area. Watch for: ??? Swelling. ??? Tenderness. ??? Redness. ??? Soreness. ??? Warmth. ??? You have a fever. Get help right away if: ??? You notice red streaks coming from the affected area. ??? Your bone or joint underneath the affected area becomes painful after the skin has healed. ??? The affected area turns darker. ??? You feel a deep pain in your leg or groin. ??? You are short of breath. Summary ??? Stasis dermatitis is a long-term (chronic) skin condition that happens when veins can no longerpump blood back to the heart (poor circulation). ??? Wear compression stockings as told by your health care provider. These stockings help to prevent blood clots and reduce swelling in your legs. ??? Follow instructions from your health care provider about activity, medicines, and lifestyle. ??? Contact a health care provider if you have a fever or have signs of infection in the affected area. ??? Keep all follow-up visits as told by your health care provider. This is important. This information is not intended to replace advice given to you by your health care provider. Make sure you discuss any questions you have with your health care provider. Document Revised: 10/18/2021 Document Reviewed: 10/18/2021 Elsevier Patient Education ?? 2021 [employer]. Follow Up Care 10/04/2022 07:28:39 With:Mayo Wilson MD Address: [address] [address]- When:1 month Physician Emergency department Note * Donald Adame MD: MODIFY, MODIFY, MODIFY, MODIFY, PERFORM, MODIFY Event Display: ED Note Physician Authored Date: [id number] MUNA GARVEY :1980 Age:42 years Sex:Male Visit Date:10/04/2022 Primary Care Physician: Mayo Wilson MD Basic Information Time Seen: Donald Adame MD / 10/04/2022 07:49 Chief Complaint I got a real bad gash on my leg and it needs to be looked at. Pt reports back of his right calf slowly opened and he was ripping skin off, no injury hx of cellulitis requiring 40 day hospital stay. History Of Present Illness: Patient presents to the emergency department complaining of??a wound that started about??a week agowhen he scratched??his leg and slowly opened the skin??states that he??sustained no injury but has history of cellulitis which required a 40-day hospital stay and was concerned.?? Denies any fever denies any chills denies any leg pain Review of Systems: Constitutional: No fevers, chills, sweats Eye: No recent visual problems ENT: No ear pain, nasal congestion, sore throat Respiratory: No shortness of breath, cough Cardiovascular: No Chest pain, palpitations, syncope Gastrointestinal: No nausea, vomiting, diarrhea Genitourinary: No hematuria Wil/Lymph: Negative for bruising tendency, swollen lymph glands Endocrine: Negative for excessive thirst, excessive hunger Musculoskeletal: No back pain, neck pain, joint pain, muscle pain, decreased range of motion Integumentary: No rash, pruritus, abrasions Neurologic: Alert & oriented X 4 Psychiatric: No anxiety, depression Physical Exam Vitals & Measurements T:??37.2?C ??(Temporal Artery)?? HR:??78??(Peripheral)?? RR:??18?? BP:??166/90?? SpO2:??96%?? HT:??194.000??cm?? WT:??137.55??kg??(Estimated)?? O2 Therapy:??Room air?? General: Alert and oriented, well nourished, no acute distress. Eye: PERRL, EOMI, normal conjunctiva. HENT: Normocephalic, clear tympanic membranes, normal hearing, moist oral mucosa, no scleral icterus, no sinus tenderness. Neck: Supple, non-tender, no carotid bruits, no JVD, no lymphadenopathy. Lungs: Clear to auscultation and percussion, non-labored respiration. Heart: Normal rate, regular rhythm, no murmur, gallop or edema. Breast: No lumps, no bumps, no scars, normal nipples. Abdomen: Soft, non-tender, non-distended, normal bowel sounds, no masses. Musculoskeletal: Normal range of motion and strength, no tenderness or swelling.?? 7 x 5 cm??wound??ulceration in the back of his??right calf??with??areas of excoriation and granulation tissue??but no purulent no erythema Skin: Skin is warm, dry and appropriate for ethnicity, no rashes or lesions. Neurologic: Awake, alert and oriented X4, CN II-XII intact. Psychiatric: Cooperative, appropriate mood and affect. Medical Decision Making: MDM: Summary: Symptoms with lower extremity varicosities who has??a??large 7 x 5 ulcer in the back of his??right leg and his right calf with some??very few areas of necrotic tissue. ?? Data Review Analysis ? Independent review of Studies Imaging ?? Lab: Labs are unremarkable ?? Risk Stratification: Within??ulceration in the back of his calf. ??Very deep??probably secondary also to??postphlebitic changes and varicose veins in his leg. ??Labs unremarkable??and he will be home after he was seen bythe equipment specialist here in the hospital??he would be get silver impregnated dressings and to change them and will be seen with the wound clinic??at the end of the week for continuation of the treatment ? DDx. Postphlebitic??leg ulcer,??traumatic ulcer to the leg,??skin necrosis,??cellulitis,??arterial insufficiency ulcer ?? Consultants: Rosa Killian the equipment specialist saw the patient in the emergency department and gave recommendations ?? Shared disposition: ?? Stance??his treatments at home and will be seen at the end of this week. Impression:?? Procedure No Qualifying Data Assessment/Plan 1.??Leg varicosity w ulcer??I83.009 Non-pressure chronic ulcer of unspecified part of unspecified lower leg with unspecified severity??L97.909 Patient Discharge Condition good Discharge Disposition home Patient Education Venous Ulcer Stasis Dermatitis Follow Up With When Contact Information Mayo Wilson MD Within 1 [place] [address]- Additional Instructions: Wound Clinic at the end of the week Medication Reconciliation Unchanged busPIRone (busPIRone 30 mg oral tablet)1 tab Oral (given by mouth) 2 times a day. Refills: 0. ?? cholecalciferol (Vitamin D3 5000 intl units oral tablet)1 tab Oral (given by mouth) every day. Refills: 0. ?? citalopram (citalopram 40 mg oral tablet)1 tab Oral (given by mouth) every night at bedtime. Refills: 0. ?? cloNIDine (cloNIDine 0.3 mg oral tablet)TAKE 2 TABLETS BY MOUTH EVERY MORNING AND TAKE 1 TABLET AT BEDTIME. Refills: 0. ?? cyanocobalamin (Vitamin B-12 1000 mcg oral tablet)1 tab Oral (given by mouth) every day. 28 unknownunit. ?? cyanocobalamin (Vitamin B12 1000 mcg oral tablet)1 tab Oral (given by mouth) every day for 30 Days.Refills: 2. ?? furosemide (furosemide 40 mg oral tablet)1 tab Oral (given by mouth) 2 times a day. 56 tab. Refills: 11. ?? lisdexamfetamine (Vyvanse 20 mg oral capsule)1 Capsules Oral (given by mouth) every morning. Refills: 0. ?? lisdexamfetamine (Vyvanse 40 mg oral capsule)1 Capsules Oral (given by mouth) every morning for 30 Days. Refills: 0. ?? lisdexamfetamine (Vyvanse 40 mg oral capsule)1 Capsules Oral (given by mouth) every morning. Refills: 0. ?? lurasidone (Latuda 40 mg oral tablet)1 tab Oral (given by mouth) every night at bedtime. Refills: 2. ?? oxybutynin (oxybutynin 10 mg/24 hr oral tablet, extended release)1 tab Oral (given by mouth) every day. Refills: 3. 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 Employment/School disabled Home/Environment Lives with caretakers. Nutrition/Health Caffeine intake amount: none. Sleeping concerns: No. Other Psychosocial Substance Use Never Tobacco Never tobacco user Tobacco Use:. Never Smokeless Tobacco use:. Lab Results CBC and Differential?? LATEST RESULTS?? WBC?? 10/04/22 08:15?? 8.0?? RBC?? 10/04/22 08:15?? 5.6?? Hgb?? 10/04/22 08:15?? 17.0?? Hct?? 10/04/22 08:15?? 49.9?? MCV?? 10/04/22 08:15?? 89.4?? MCH?? 10/04/22 08:15?? 30.5?? MCHC?? 10/04/22 08:15?? 34.1?? RDW-CV?? 10/04/22 08:15?? 12.3?? Platelets?? 10/04/22 08:15?? 369?? Neutro Auto?? 10/04/22 08:15?? 70.9?? Lymph Auto?? 10/04/22 08:15?? 18.5 ??Low?? Wheeler Auto?? 10/04/22 08:15?? 9.4?? Eos, Auto?? 10/04/22 08:15?? 0.4 ??Low?? Basophil Auto?? 10/04/22 08:15?? 0.4?? Imm Gran Auto?? 10/04/22 08:15?? 0.4?? Neutro Absolute?? 10/04/22 08:15?? 5.7? Routine Chemistry?? LATEST RESULTS?? Sodium Level?? 10/04/22 08:15?? 138?? Potassium Level?? 10/04/22 08:15?? 3.9?? Chloride Level?? 10/04/22 08:15?? 101?? CO2?? 10/04/22 08:15?? 27?? Alk Phos?? 10/04/22 08:15?? 84?? AST?? 10/04/22 08:15?? 24?? ALT?? 10/04/22 08:15?? 29?? BUN?? 10/04/22 08:15?? 8?? Glucose Level?? 10/04/22 08:15?? 101?? Creatinine Level?? 10/04/22 08:15?? 1.22?? eGFR AA?? 10/04/22 08:15?? 76?? eGFR Non-AA?? 10/04/22 08:15?? 76?? Calcium Level?? 10/04/22 08:15?? 10.0?? Protein Total?? 10/04/22 08:15?? 8.8 ??High?? Albumin Level?? 10/04/22 08:15?? 4.2?? Bilirubin Total?? 10/04/22 08:15?? 0.7? Electronically Signed on 10/04/22 10:04 AM Donald Adame MD Emergency department Discharge instructions * Donald Adame MD: PERFORM, MODIFY Event Display: ED Discharge Information Authored Date: [id number] MUNA GARVEY :1980 Age:42 years Sex:Male Visit Date:10/04/2022 Primary Care Physician: Mayo Wilson MD Discharge Instructions We would like to thank you for allowing us to assist you with your healthcare needs. The following includes patient education materials and information regarding your injury/illness. Diagnosis from Today's Visit Leg varicosity w ulcer Non-pressure chronic ulcer of unspecified part of unspecified lower leg with unspecified severity Discharge Vitals Temperature??(Temporal Artery) 99.0 ??F (37.2 ??C) Heart Rate??(Peripheral) 78 Respiratory Rate?? 18 Blood Pressure?? 166/90?? Height?? 76.38 in (194.000 cm) Weight??(Estimated) 303.30 lb (137.55 kg) Allergies No Known Medication Allergies What to Do Next You Need to Schedule the Following Appointments Follow Up with??Mayo Wilson MD When:??Within 1 month Where: [address] [id number]- Upcoming Scheduled Appointments 2022 3:15 PM EST ?? Monday. 2022 10:40 AM EDT ?? You were treated today on an emergency basis; it may be alicia to contact your primary care provider to notify them of your visit today. You may have been referred to your regular doctor or a specialist, please follow up as instructed. If your condition worsens or you can't get in to see the doctor, contact the Emergency Department. Medications What How Much When Why Instructions Next Dose Unchanged busPIRone (busPIRone 30 mg oral tablet) 1 tab Oral (given by mouth) 2 times a day Unchanged cholecalciferol (Vitamin D3 5000 intl units oral tablet) 1 tab Oral (given by mouth) Every day Unchanged citalopram (citalopram 40 mg oral tablet) 1 tab Oral (given by mouth) Every night at bedtime Unchanged cloNIDine (cloNIDine 0.3 mg oral tablet) See instructions TAKE 2 TABLETS BY MOUTH EVERY MORNING AND TAKE 1 TABLET AT BEDTIME ?? Unchanged cyanocobalamin (Vitamin B-12 1000 mcg oral tablet) 1 tab Oral (given by mouth) Every day 28 unknown unit ?? Unchanged cyanocobalamin (Vitamin B12 1000 mcg oral tablet) 1 tab Oral (given by mouth) Every day Depression, unspecified Duration: 30 Days Unchanged furosemide (furosemide 40 mg oral tablet) 1 tab Oral (given by mouth) 2 times a day 56 tab ?? Unchanged lisdexamfetamine (Vyvanse 20 mg oral capsule) 1 Capsules Oral (given by mouth) Every morning Unchanged lisdexamfetamine (Vyvanse 40 mg oral capsule) 1 Capsules Oral (given by mouth) Every morning Binge-eating disorder, severe Duration: 30 Days Unchanged lisdexamfetamine (Vyvanse 40 mg oral capsule) 1 Capsules Oral (given by mouth) Every morning Unchanged lurasidone (Latuda 40 mg oral tablet) 1 tab Oral (given by mouth) Every night at bedtime Unchanged oxybutynin (oxybutynin 10 mg/ 24 hr oral tablet, extended release) 1 tab Oral (given by mouth) Every day Education Materials Venous Ulcer A venous ulcer is a shallow sore on your lower leg that is caused by poor circulation in your veins. This condition used to be called stasis ulcer. Venous ulcer is the most common type of lower leg ulcer. You may have venous ulcers on one leg or on both legs. The area where this condition most commonly develops is around the ankles. A venous ulcer may last for a long time (chronic ulcer) or it may return repeatedly (recurrent ulcer). What are the causes? A venous ulcer may be caused by any condition that causes poor blood flow in your legs. Veins have valves that help return blood to the heart. If these valves do not work properly: ? Blood can flow backward and pool in the lower legs. ? Blood can then leak out of your veins, which can irritate your skin. ? Irritation can cause a break in the skin, which becomes a venous ulcer. What increases the risk? You are more likely to develop this condition if you: ? Are 65 years of age or older. ? Are female. ? Are overweight. ? Are not active. ? Have had a leg ulcer in the past. ? Have varicose veins. ? Have clots in your lower leg veins (deep vein thrombosis). ? Have inflammation of your leg veins (phlebitis). ? Have recently had a . ? Use products that contain nicotine or tobacco. What are the signs or symptoms? The main symptom of this condition is an open sore near your ankle. Other symptoms may include: ? Swelling. ? Thickening of the skin. ? Fluid leaking from the ulcer. ? Bleeding. ? Itching. ? Pain and swelling that gets worse when you stand up and feels better when you raise your leg. ? Blotchy skin. ? Darkening of the skin. How is this diagnosed? Your health care provider may suspect a venous ulcer based on your medical history and your risk factors. He or she may: ? Do a physical exam. ? Do other tests, such as: ? Measuring blood pressure in your arms and legs. ? Using sound waves (ultrasound) to measure blood flow in your leg veins. How is this treated? This condition may be treated by: ? Keeping your leg raised (elevated). ? Wearing a type of bandage or stocking to compress the veins of your leg (compression therapy). ? Taking medicines to improve blood flow. ? Taking antibiotic medicines to treat infection. ? Cleaning your ulcer and removing any tissue from the wound (debridement). ? Placing various types of medicated bandages (dressings) or medicated wraps on your ulcer. ? Surgery to close the wound using a piece of skin taken from another area of your body (graft). Thisis only done for wounds that are deep or hard to heal. You may need to try several different types of treatment to get your venous ulcer to heal. Healing may take a long time. Follow these instructions at home: Medicines ? Take or apply tsyv-bwv-cowcokc and prescription medicines only as told by your health care provider. ? If you were prescribed an antibiotic medicine, take it as told by your health care provider. Do notstop using the antibiotic even if you start to feel better. ? Ask your health care provider if you should take aspirin before long trips. Wound care ? Follow instructions from your health care provider about how to take care of your wound. Make sure you: ? Wash your hands with soap and water before and after you change your bandage (dressing). If soap and water are not available, use hand case supervisor. ? Change your dressing as told by your health care provider. ? If you had a skin graft, leave stitches (sutures) in place. These may need to stay in place for 2 weeks or longer. ? Ask when you should remove your dressing. If your dressing is dry and sticks to your leg when you try to remove it, moisten or wet the dressing with saline solution or water so that the dressing can be removed without harming your skin or wound tissue. ? When you are able to remove your dressing, check your wound every day for signs of infection. Have a caregiver do this for you if you are not able to do it yourself. Check for: ? More redness, swelling, or pain. ? More fluid or blood. ? Warmth. ? Pus or a bad smell. Activity ? Avoid sitting for a long time without moving. Get up to take short walks every 1???2 hours. This isimportant to improve blood flow in your legs. Ask for help if you feel weak or unsteady. ? Ask your health care provider what level of activity is safe for you. ? Rest with your legs raised (elevated) during the day. If possible, elevate your legs above the level of your heart for 30 minutes, 3???4 times a day, or as told by your health care provider. ? Do not sit with your legs crossed. General instructions ? Wear elastic stockings, compression stockings, or support hose as told by your health care provider. ? Raise the foot of your bed as told by your health care provider. ? Do not use any products that contain nicotine or tobacco, such as cigarettes, e- cigarettes, and chewing tobacco. If you need help quitting, ask your health care provider. ? Keep all follow-up visits as told by your health care provider. This is important. Contact a health care provider if: ? Your ulcer is getting larger or is not healing. ? Your pain gets worse. Get help right away if you have: ? More redness, swelling, or pain around your ulcer. ? More fluid or blood coming from your ulcer. ? Warmth in the area around your ulcer. ? Pus or a bad smell coming from your ulcer. ? A fever. Summary ? A venous ulcer is a shallow sore on your lower leg that is caused by poor circulation in your veins. ? Follow instructions from your health care provider about how to take care of your wound. ? Check your wound every day for signs of infection. ? Take tqkw-gex-hvqmmeb and prescription medicines only as told by your health care provider. ? Keep all follow-up visits as told by your health care provider. This is important. This information is not intended to replace advice given to you by your health care provider. Make sure you discuss any questions you have with your health care provider. Document Revised: 04/04/2019 Document Reviewed: 04/04/2019 H2020 Patient Education ?? 2021 [employer] Stasis Dermatitis Stasis dermatitis is a long-term (chronic) skin condition that happens when veins can no longer pump blood back to the heart (poor circulation). This condition causes a red or brown scaly rash or sores (ulcers) from the pooling of blood (stasis). This condition usually affects the lower legs. It may affect one leg or both legs. Without treatment, severe stasis dermatitis can lead to other skin conditions and infections. What are the causes? This condition is caused by poor circulation. What increases the risk? You are more likely to develop this condition if: ? You are not very active. ? You stand for long periods of time. ? You have veins that have become enlarged and twisted (varicose veins). ? You have leg veins that are not strong enough to send blood back to the heart (venous insufficiency). ? You have had a blood clot. ? You have been many times. ? You have had vein surgery. ? You are obese. ? You have heart or kidney failure. ? You are 50 years of age or older. ? You have had injuries to your legs in the past. What are the signs or symptoms? Common early symptoms of this condition include: ? Itchiness in one or both of your legs. ? Swelling in your ankle or leg. This might get better overnight but be worse again during the day. ? Skin that looks thin on your ankle and leg. ? Red or brown ibarra that develop slowly. ? Skin that is dry, cracked, or easily irritated. ? Red, swollen skin that is sore or has a burning feeling. ? An achy or heavy feeling after you walk or stand for long periods of time. ? Pain. Later and more severe symptoms of this condition include: ? Skin that looks shiny. ? Small, open sores (ulcers). These are often red or purple and leak fluid. ? Skin that feels hard. ? Severe itching. ? A change in the shape or color of your lower legs. ? Severe pain. ? Difficulty walking. How is this diagnosed? This condition may be diagnosed based on: ? Your symptoms and medical history. ? A physical exam. You may also have tests, including: ? Blood tests. ? Imaging tests to check blood flow (Doppler ultrasound). ? Allergy tests. You may need to see a health care provider who specializes in skin diseases (fashion styling intern). How is this treated? This condition may be treated with: ? Compression stockings or an elastic wrap to improve circulation. ? Medicines, such as: ? Corticosteroid creams and ointments. ? Non-corticosteroid medicines applied to the skin (topical). ? Medicine to reduce swelling in the legs (diuretics). ? Antibiotics. ? Medicine to relieve itching (antihistamines). ? A bandage (dressing). ? A wrap that contains zinc and gelatin (Unna boot). Follow these instructions at home: Skin care ? Moisturize your skin as told by your health care provider. Do not use moisturizers with fragrance. This can irritate your skin. ? Apply a cool, wet cloth (cool compress) to the affected areas. ? Do not scratch your skin. ? Do not rub your skin dry after a bath or shower. Gently pat your skin dry. ? Do not use scented soaps, detergents, or perfumes. Medicines ? Take or use xyyx-esu-ftvqsrg and prescription medicines only as told by your health care provider. ? If you were prescribed an antibiotic medicine, take or use it as told by your health care provider.Do not stop taking or using the antibiotic even if your condition improves. Activity ? Walk as told by your health care provider. Walking increases blood flow. ? Do calf and ankle exercises throughout the day as told by your health care provider. This will helpincrease blood flow. ? Raise (elevate) your legs above the level of your heart when you are sitting or lying down. Lifestyle ? Work with your health care provider to lose weight, if needed. ? Do not cross your legs when you sit. ? Do not stand or sit in one position for long periods of time. ? Wear comfortable, loose-fitting clothing. Circulation in your legs will be worse if you wear tight pants, belts, and waistbands. ? Do not use any products that contain nicotine or tobacco, such as cigarettes, e- cigarettes, and chewing tobacco. If you need help quitting, ask your health care provider. General instructions ? If you were asked to use one of the following to help with your condition, follow instructions fromyour health care provider on how to: ? Remove and change any dressing. ? Wear compression stockings. These stockings help to prevent blood clots and reduce swelling in yourlegs. ? Wear the Unna boot. ? Keep all follow-up visits as told by your health care provider. This is important. Contact a health care provider if: ? Your condition does not improve with treatment. ? Your condition gets worse. ? You have signs of infection in the affected area. Watch for: ? Swelling. ? Tenderness. ? Redness. ? Soreness. ? Warmth. ? You have a fever. Get help right away if: ? You notice red streaks coming from the affected area. ? Your bone or joint underneath the affected area becomes painful after the skin has healed. ? The affected area turns darker. ? You feel a deep pain in your leg or groin. ? You are short of breath. Summary ? Stasis dermatitis is a long-term (chronic) skin condition that happens when veins can no longer pump blood back to the heart (poor circulation). ? Wear compression stockings as told by your health care provider. These stockings help to prevent blood clots and reduce swelling in your legs. ? Follow instructions from your health care provider about activity, medicines, and lifestyle. ? Contact a health care provider if you have a fever or have signs of infection in the affected area. ? Keep all follow-up visits as told by your health care provider. This is important. This information is not intended to replace advice given to you by your health care provider. Make sure you discuss any questions you have with your health care provider. Document Revised: 10/18/2021 Document Reviewed: 10/18/2021 [employer] Patient Education ?? 2021 [employer] Tests Performed Lab Test Name Test Result Date/Time WBC 8.0 x10^3/mcL 10/04/2022 08:15 EST RBC 5.6 x10^6/mcL 10/04/2022 08:15 EST Hgb 17.0 g/dL 10/04/2022 08:15 EST Hct 49.9 % 10/04/2022 08:15 EST MCV 89.4 10/04/2022 08:15 EST MCH 30.5 pg 10/04/2022 08:15 EST MCHC 34.1 g/dL 10/04/2022 08:15 EST RDW-CV 12.3 % 10/04/2022 08:15 EST Platelets 369 x10^3/mcL 10/04/2022 08:15 EST Neutro Auto 70.9 % 10/04/2022 08:15 EST Lymph Auto 18.5 % 10/04/2022 08:15 EST Wheeler Auto 9.4 % 10/04/2022 08:15 EST Eos, Auto 0.4 % 10/04/2022 08:15 EST Basophil Auto 0.4 % 10/04/2022 08:15 EST Imm Gran Auto 0.4 % 10/04/2022 08:15 EST Neutro Absolute 5.7 x10^3/mcL 10/04/2022 08:15 EST Sodium Level 138 mmol/L 10/04/2022 08:15 EST Potassium Level 3.9 mmol/L 10/04/2022 08:15 EST Chloride Level 101 mmol/L 10/04/2022 08:15 EST CO2 27 mmol/L 10/04/2022 08:15 EST Alk Phos 84 unit/L 10/04/2022 08:15 EST AST 24 unit/L 10/04/2022 08:15 EST ALT 29 unit/L 10/04/2022 08:15 EST BUN 8 mg/dL 10/04/2022 08:15 EST Glucose Level 101 mg/dL 10/04/2022 08:15 EST Creatinine Level 1.22 mg/dL 10/04/2022 08:15 EST eGFR AA 76 10/04/2022 08:15 EST eGFR Non-AA 76 10/04/2022 08:15 EST Calcium Level 10.0 mg/dL 10/04/2022 08:15 EST Protein Total 8.8 g/dL 10/04/2022 08:15 EST Albumin Level 4.2 g/dL 10/04/2022 08:15 EST Bilirubin Total 0.7 mg/dL 10/04/2022 08:15 EST Patient/[employer] Make Up Helper Signature Patient Name:MUNA AGRVEY I have received this information and my questions have been answered. Patient/[employer] Make Up Helper Name: Patient/[employer] Make Up Helper Signature: Relationship to Patient: Witness Name/Signature: Date: Electronically Signed on: 10/04/2022 10:03 ESTSigned by:SHANDA Patient Care team information Care Team Personnel Name: Mayo Wilson MD Position: Physician Member Role: Informed Provider Address: Address: [address] [address]- [place] Name: Adriana Hicks Position: Nurse Member Role: ED Nurse Name: Donald Adame MD Position: Physician Member Role: ED Physician Address: Address: [address] [place] [address] Care Team Related Persons Name: LEIF GARVEY
--- OUTSIDE RECORDS SUMMARY | 2024-09-02 16:13 | XMS_ITS | Continuity of Care Document ---
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 HELPER Allergies, Adverse Reactions, Alerts No Known Medication [...] BID, # 56 tab, 2 Refill(s), Pharmacy: [facility], 194, cm, 10/04/22 7:36:00 EST, Height/Length Dosing, 137.55, kg, 10/04/22 7:36:00 EST, Weight Dosing Start Date: 01/23/23 Stop Date: 04/17/23 Status: Ordered cloNIDine 0.2 mg oral tablet 0.4 mg = 2 tab, Oral, Once, # 180 tab, 0 Refill(s) Start Date: 07/19/23 Status: Ordered cloNIDine 0.3 mg oral tablet See Instructions, TAKE 1 TABLET AT BEDTIME, # 84 tab, 3 Refill(s), Pharmacy: [facility] [id number], 194, cm, 10/04/22 7:36:00 EST, Height/Length Dosing, 137.55, kg, 10/04/22 7:36:00 EST, Weight Dosing Start Date: 03/13/23 Status: Ordered furosemide 40 mg oral tablet 2 tab, Oral, Daily, # 56 tab, 6 Refill(s), Pharmacy: [facility] [id number], 188.59, cm, 10/25/23 9:01:00 EST, Height, 151.59, kg, 10/25/23 9:04:00 EST, Weight Dosing Start Date: 12/15/23 Status: Ordered lisinopril 20 mg oral tablet 1 tab, Oral, Daily, # 28 tab, 3 Refill(s), Pharmacy: [facility] [id number], 188.59, cm, 10/25/23 9:01:00 EST, Height, 146.95, kg, 12/20/23 9:40:00 EDT, Weight Dosing Start Date: 02/08/24 Status: Ordered lurasidone 20 mg oral tablet 20 mg = 1 tab, Oral, every other day, # 30 tab, 0 Refill(s) Start Date: 07/19/23 Status: Ordered Metoprolol Succinate ER 50 mg oral tablet, extended release 1 tab, Oral, Daily, # 28 tab, 3 Refill(s), Pharmacy: [facility] [id number], 188.59, cm, 10/25/23 9:01:00 EST, Height, 151.59, kg, 10/25/23 9:04:00 EST, Weight Dosing Start Date: 11/17/23 Status: Ordered oxybutynin 10 mg/24 hr oral tablet, extended release 1 tab, Oral, Daily, # 28 tab, 3 Refill(s), Pharmacy: [id number], 188.59, cm, 10/25/23 9:01:00 EST, Height, 146.95, kg, 12/20/23 9:40:00 EDT, Weight Dosing Start Date: 02/08/24 Status: Ordered PROzac 20 mg oral capsule 20 mg = 1 cap, Oral, Daily, # 28 cap, 2 Refill(s), Pharmacy: [facility], 194, cm, 10/04/22 7:36:00 EST, Height/Length Dosing, 137.55, kg, 10/04/22 7:36:00 EST, Weight Dosing Start Date: 12/23/22 Status: Ordered Vitamin B12 1000 mcg oral tablet 1,000 mcg = 1 tab, Oral, Daily, # 30 tab, 2 Refill(s), Pharmacy: [facility] Start Date: 09/01/22 Stop Date: 11/30/22 Status: Ordered Vitamin D3 2000 intl units oral tablet 50 mcg = 1 tab, Oral, Daily, # 28 tab, 2 Refill(s), Pharmacy: [facility], 194, cm, 10/04/22 7:36:00 EST, Height/Length Dosing, 137.55, kg, 10/04/22 7:36:00 EST, Weight Dosing Start Date: 12/23/22 Status: Ordered Vyvanse 40 mg oral capsule 40 mg = 1 cap, Oral, every morning, new dose, # 30 cap, 0 Refill(s), Pharmacy: [facility], 188.59, cm, 10/25/23 9:01:00 EST, Height, 146.95, kg, 12/20/23 9:40:00 EDT, Weight Dosing Start Date: 12/20/23 Status: Ordered Problem List Condition Confirmation Course [...] stasis ulcer of leg Confirmed 07/13/16 Active Social History Social History Type Response Smoking Status Smoking tobacco use: Never tobacco user;Never entered on: 03/28/23 Sex Male Patient Care team information Care Team Personnel Name: Mayo Wilson MD Position: Physician Member Role: Informed Provider Address: Address: [address] Care Team Related Persons Name: LEIF GARVEY
--- OUTSIDE RECORDS SUMMARY | 2024-09-02 16:13 | XMS_ITS | Encounter Summary ---
Author Organization [facility] [place] [address] [place] [address] Care Team Providers Care Cabinet Installer Name Role Phone Lynne Barrett MD Primary Care Provider [phone] Encounter Details Date Type Department Care Team (Late st Contact Info) Description 11/08/2018 3:00 PM EDT Office Visit Weight and Wellness at [facility] [address] [place] [id number] Desirae Nguyen APRN Adult BMI 50.0-59.9 kg/sq m; Essential hypertension; Morbid obesity Social History Tobacco Use Types Packs/Day Years Used Date Smoking Tobacco: Never Sex and Gender Information Value Date Recorded Sex Assigned at Not on file Gender Identity Not on file Sexual Orientation Not on file documented as of this encounter Last Filed Vital Signs Vital Sign Reading Time Taken Comments Blood Pressure 130/74 11/08/2018 3:02 PM EDT Pulse - - Temperature - - Respiratory Rate - - Oxygen Saturation - - Inhaled Oxygen Concentration - - Weight 194.8 kg (429 lb 8 oz) 11/08/2018 3:02 PM EDT Height 193 cm (6' 3.98) 11/08/2018 3:02 PM EDT Body Mass Index 52.31 11/08/2018 3:02 PM EDT documented in this encounter Patient Instructions * Patient Instructions* Desirae Nguyen APRN - 11/08/2018 3:00 PM EDT Continue to do what you are doing Tracking Add protein if your weight loss starts to slow down, make sure you have enough protein each time you eat 8 weeks but if you slow down and are worried call for a 4 week appointment documented in this encounter Progress Notes * Desirae Nguyen APRN - 11/08/2018 3:00 PM EDT [facility] Visit Patient Name: Kwaku Blanton Date of : 1980 Age: [address] Lynne Barrett MD / No ref. provider found Thank you for referring Kwaku Blanton to the [facility] for consultation regarding obesity. PREVIOUS LABS: Lab Results Component Value Date CHLPL 175 09/07/2018 Lab Results Component Value Date HDL 31 (ExtL) 09/07/2018 Lab Results Component Value Date LDLCHOL 113 09/07/2018 Lab Results Component Value Date TRIG 157 (ExtH) 09/07/2018 No results found for: CHOLHDL No results found for: HA1C No results found for: GLUCFASTING Lab Results Component Value Date AST 54 09/07/2018 ALT 54 09/07/2018 CHIEF COMPLAINT: Maciej is here for a 4 week follow up for Class III Severe Morbid Obesity INTERVAL HISTORY / PROGRESS TOWARD GOALS: [x] I reviewed past / interim records including notes and labs. Activity: routine walking 30 laps, treadmill, up and down stairs 10 times, weights and ropes, free wts, stepper, and dumbells, 90 minutes-5 days a week, not Monday and Monday Sleep: 9PM-7:30 AM good sleep, feels rested Mood: good Energy is great B: Eggs, 2 L: Taco Salad Snack: Pear, and nuts Dinner: steak and potatoes, turnip and carrots, No snacks, drinks Water, has one hot chocolate, or one coffee per day [facility] Followup Responses 08/31/2018 URICA - Readiness Score 7.33 (Pre-contemplation State) WEL-SF Total Scores 54 PROMIS 6B Scores 50.9 PHQ-2 SubScore 0 (Brief screen negative) GAD2 Subscore 0 (Brief screen negative) TOM 7 Total Scores 0 (No Anxiety) PROMIS 10 Physical Scores 61.9 PROMIS 10 Mental Scores 59 IPAQ - SF Scores 3 Total REAP-S Scores 29 TFEQ - Uncontrolled Eating (UE) 37.03 TFEQ-Cognitive Restraint (CR) 44.33 TFEQ-Emotional Eating 33.33 Food Insecurity Score Incomplete Days absent from work/school because of weight None Worried food would run out before we got money to buy more Never true REVIEW OF SYSTEMS: see above HPI for additional pertinent +/- findings Constitutional: NL appetite and good energy. No daytime tiredness. HEENT: No changes in vision. No ear pain, rhinorrhea / congestion, sore throat. CV: No chest pain or discomfort, no palpitations. No orthopnea, PND, + LE edema. RESP: No shortness of breath at rest, cough, or wheezing. GI: No nausea,vomiting, diarrhea, constipation, abdominal pain Musculoskeletal: No joint swelling. No immobility. No myalgias, or arthralgias Psychiatric: No anxiety, depression Neurological: No headaches VITAL SIGNS: Vitals: 11/08/18 1502 BP: 130/74 BP Location (NBP): Left arm Patient Position: Sitting BP Cuff Sizes: Large Adult (32-43 cm) Weight: (!) 194.8 kg (429 lb 8 oz) Height: 193 cm (6' 3.98) Body mass index is 52.31 kg/m??. Last 5 weight values: Wt Readings from Last 5 Encounters: 11/08/18 (!) 194.8 kg (429 lb 8 oz) 10/11/18 (!) 204 kg (449 lb 12.8 oz) 09/12/18 (!) 215 kg (474 lb) 08/31/18 (!) 219.5 kg (484 lb) 06/22/16 (!) 231.3 kg (510 lb) PHYSICAL EXAM: Gen: Alert and active, NAD. + central adiposapthy Skin: Warm, pink, no rashes, no skin breakdown HEENT: NC/AT, EOMI, clear conjunctiva Neuro: Alert and oriented Extremities: No joint swelling or tenderness Psych: NL affect today SUMMARY OF VISIT AND RECOMMENDATIONS: Kwaku Blanton was seen in follow up today and an updated medical, diet and activity review was completed. Additional goals were set for changes in health habits (see below) as was a plan for evaluation and treatment of obesity related co-morbidities. Maciej has lost 55 pounds since our first visit in August, he has done this with nutrition and exercise. He has lost 11.36% of his TBW. We discussed plateaus, an how they are normal, and that he should call if he feels this is happening Medical issues and plan: Class III Very Severe Morbid Obesity: ?? Medical Management: The patient is currently participating in the Healthy Lifestyles Program (HLP) at the [facility]. ?? Goal setting: continue with diet and exercise, tracking ?? Follow-up: 8 weeks or sooner of your weight loss slows down. ?? Fasting Labs ordered to assess co-morbidities: ?? None Hypertension: ?? Nutrition and activity recommendations to promote healthy weight ?? Continue amlodipine Labs/Tests ordered today: none F/u in: 2 months I spent a total of 30 minutes with the patient 20 minutes of which were spent in [id number] discussion/counseling re obesity, nutrition and activity as well as obesity related co-morbidities documented in this encounter Plan of Treatment Not on file documented as of this encounter Visit Diagnoses Diagnosis Adult BMI 50.0-59.9 kg/sq m Body Mass Index 50.0-59.9, adult Essential hypertension Unspecified essential hypertension Morbid obesity documented in this encounter Care Teams Cabinet Installer Relationship Specialty Start Date End Date Lynne Barrett MD [address] [place] [id number] PCP - General Family Medicine 06/02/16 12/25/19 documented as of this encounter
--- OUTSIDE RECORDS SUMMARY | 2024-09-02 16:13 | XMS_ITS | Clinical Summary ---
Author Organization [facility] Address [address] [place] [address] Care Team Providers Care Observer Gravity Prospecting Name Role Phone Lynne Barrett MD Primary Care Provider [phone] Social History Tobacco Use Types Packs/Day Years Used Date Smoking Tobacco: Never Assessed Sex and Gender Information Value Date Recorded Sex Assigned at Not on file Legal Sex Male 15:04 EDT Gender Identity Not on file Sexual Orientation Not on file Plan of Treatment Health Maintenance Due Date Last Done Comments Hepatitis C Screen 1980 Hepatitis B Vaccine (1 of 3 - 19+ 3-dose series) 03/19 COVID-19 Vaccine ( season) 2024 Care Teams Observer Gravity Prospecting Relationship Specialty Start Date End Date Lynne Barrett MD [address] [place] [phone] PCP - General 03/01/19
--- OUTSIDE RECORDS SUMMARY | 2024-09-02 16:13 | XMS_ITS | Referral Summary ---
Author Organization [facility] Address [address] [place] [address] Care Team Providers Care Graphic Design Teacher Name Role Phone Lynne Barrett MD Primary Care Provider [phone] Social History Tobacco Use Types Packs/Day Years Used Date Smoking Tobacco: Never Assessed Sex and Gender Information Value Date Recorded Sex Assigned at Not on file Legal Sex Male 15:04 EDT Gender Identity Not on file Sexual Orientation Not on file Plan of Treatment Not on file Care Teams Graphic Design Teacher Relationship Specialty Start Date End Date Lynne Barrett MD [address] [place] [phone] PCP - General 03/01/19
--- OUTSIDE RECORDS SUMMARY | 2024-09-02 16:13 | XMS_ITS | Encounter Summary ---
Author Organization [facility] Address [address] [facility] [place] [address] Care Team Providers Care Linoleum Layer Apprentice Name Role Phone Lynne Barrett MD Primary Care Provider [phone] Reason for Visit * Reason Comments Weight Management * Consultation (Routine) - Closed Specialty Diagnoses / Procedures Referred By Contac t Referred To Contact Weight and Wellness Diagnoses MORBID OBESITY SCHIZOPHRENIA, CHRONIC Procedures call foster care case manager for pt, Klae Dotson, , ext [phone] Lynne Barrett MD [address] [place] [address] [facility] [address] [place] [address] Referral ID Status Reason Start Date Expiration Date V isits Requested Visits Authorized [id number] Closed Consult, Test & Treat Connection [facility] 08/06/2018 08/06/2019 1 1 Encounter Details Date Type Department Care Team (Late st Contact Info) Description 08/31/2018 2:15 PM EST Office Visit Weight and Wellness at [facility] [address] [place] [address] Desirae Nguyen APRN Morbid obesity; Adult BMI 50.0-59.9 kg/sq m; Essential hypertension Social History Tobacco Use Types Packs/Day Years Used Date Smoking Tobacco: Never Sex and Gender Information Value Date Recorded Sex Assigned at Not on file Gender Identity Not on file Sexual Orientation Not on file documented as of this encounter Last Filed Vital Signs Vital Sign Reading Time Taken Comments Blood Pressure 137/86 08/31/2018 2:38 PM EST Pulse 87 08/31/2018 2:38 PM EST Temperature - - Respiratory Rate 20 08/31/2018 2:38 PM EST Oxygen Saturation 98% 08/31/2018 2:38 PM EST Inhaled Oxygen Concentration - - Weight 219.5 kg (484 lb) 08/31/2018 2:38 PM EST Height 193 cm (6' 4) 08/31/2018 2:38 PM EST Body Mass Index 58.91 08/31/2018 2:38 PM EST documented in this encounter Patient Instructions * Patient Instructions* Desirae Nguyen APRN - 08/31/2018 2:15 PM EST Food tracking: write down everything you eat and drink at each meal Have protein at each meal; Yoruba yogurt, 1 cup plain Cottage Cheese Peanut Butter: Michael Peanut 2 tablespoons Meat , Fish, Pork, Powers, Chicken Mozzarella Cheese Feta Cheese Goat Cheese Legumes: Beans, Eggs 2-3 per day Fasting Blood Work No eating between 9 pm and 8 am Less snacking, smarter Apple and peanut 1 soda per week documented in this encounter Progress Notes * Desirae Nguyen APRN - 08/31/2018 2:15 PM EST [facility] Visit Patient Name: Kwaku Blanton Date of : 1980 Age: [address] Lynne Barrett MD / None Thank you for referring Kwaku Blanton to the [facility] for a consultation for obesity management. I reviewed past records including notes, labs, and other evaluation and discussed them with the patient. CHIEF COMPLAINT: Management of excess weight [facility] technical publications manager, and youth care professional are here with the patient. He has schizophrenia. He lies in [facility], near the [facility] HISTORY OF PRESENT ILLNESS: Kwaku Blanton is a 38 y.o. male referred to the [facility] for an evaluation of obesity. Weight History: Maciej Villalobos states he has struggled for a couple of years In HS: he [id number] pounds, active with track and field football, he describes himself as tall and thin, he started gaining weight 10 years ago, age 28, he was fired from 3 jobs, he had no place to live, no car or girl friend, he had broken up with a girlfried, then he was thrown out of transitional housing Transitional Housing Sammy Coronado, Adult Family The most he has weighed is 525 pounds He wants to lose 150 pounds no time frame, he feels weight loss will help get his life on track 24 hour recall: 8 am breakfast: oatmeal: honey cinamon, , juice prune 1/2 cup Gym: just moved, 4 times a week: weights and treadmill: 3 minutes 4 rounds, 25 rounds each arm justarms, bike 3 min x 4 rounds Lunch: 12-1: steak and veggies, instant potatoes, with onions, and water Lots of water 1-2, skirt steak, about 6 ounces Snack: hot chocolate in the AM coffee and apple Dinner: Taco salad meat, veggies, lettuce, no chips or shells Funions: on side Watches TV: may snack on popcorn Bed 9pm, He has been living with the family for 6 months He uses 1 pillow, sleeps in a love seat, sometimes sleep with his legs on the floor, sitting up He wears Compression stockings, he had ulcers on his legs, he does not any longer Reyna Scholender, prescribed stockings Eats out: every week, Taco Salad, 1 soda, at [employer]: Snacks: little thing of popcorn, pre-made from a tin and water Etoh: none No illicit drugs Dinner [facility] Initial Responses 08/31/2018 URICA - Readiness Score 7.33 (Pre-contemplation State) WEL-SF Total Scores 54 PROMIS 6B Scores 50.9 PHQ-2 SubScore 0 (Brief screen negative) GAD2 Subscore 0 (Brief screen negative) TOM 7 Total Scores 0 (No Anxiety) PROMIS 10 Physical Scores 61.9 PROMIS 10 Mental Scores 59 IPAQ-SF Scores 3 Total REAP-S Scores 29 TFEQ - Uncontrolled Eating (UE) 37.03 TFEQ-Cognitive Restraint (CR) 44.33 TFEQ-Emotional Eating 33.33 Food Insecurity Score Incomplete [place] Category I Result 0 [place] Category II Result 0 [place] Category III 0 (Negative) [place] Sleep Apnea Total 0 (Low Risk) Schooling Some college or technical school Confidence to make change 9 Most weighed 490 Age most weighed 38 Times lost 10 lbs or more 3 to 5 Most weight lost in one attempt 17 Lost weight how? Exercised Wearing tracking devices helped improve health No Worried food would run out before we got money to buy more Never true Woman with baby weighing > 9lbs at No Sister of brother with diabetes Yes . Impact of weight on the patient's life: The patient's greatest concerns today regarding weight include lose weight, overweight than what I should be, never took it serious [facility] Followup Responses 08/31/2018 URICA - Readiness [...] got money to buy more Never true Motivation, Goals and Barriers: Motivation:7-03/30, not perfect, Overarching Goals: not really Barriers and Challenges: stay away from snack foods, Junk food Junky, REVIEW OF SYSTEMS: see above HPI for additional pertinent +/- findings Constitutional: good appetite, not excessive or poor and good energy. + daytime tiredness, nap after breakfast. HEENT: No changes in vision. No ear pain, rhinorrhea / congestion, sore throat. CV: No chest pain or discomfort, no palpitations. No orthopnea, PND. + LE edema. RESP: No shortness of breath at rest, cough, or wheezing. No sleep apnea. + snoring, GI: No nausea,vomiting, diarrhea, constipation, abdominal pain : No difficulty with urination Musculoskeletal: No joint swelling. No immobility. Integumentary: No rash or bruising.No skin breakdown/ulcers. Psychiatric: , NO depression; Anxiety sometimes last anxiety attack I don't; Neurological: No headaches Endocrine: No cold intolerance, dry skin, dry/brittle hair, constipation. No excessive thirst. PAST MEDICAL HISTORY Medical and Surgical History: Reviewed and updated. The patient has the following diagnoses that are adverse health consequences of obesity: History of abdominal surgeries:none Family History: Reviewed and updated in eDH. Social History: Reviewed and updated in eDH. The patient's support system includes Rae, Ortiz, and Lynne VITAL SIGNS: Vitals: 08/31/18 1438 BP: 137/86 Pulse: 87 Resp: 20 SpO2: 98% Weight: (!) 219.5 kg (484 lb) Height: 193 cm (6' 4) Body mass index is 58.91 kg/m??. Waist Circumference: Neck Circumference: Last 5 weight values: Wt Readings from Last 5 Encounters: 08/31/18 (!) 219.5 kg (484 lb) 06/22/16 (!) 231.3 kg (510 lb) Body Composition Bioimpedance Analysis: Body Fat %: RMR: Kcal/d VAT: L PHYSICAL EXAM: Gen: Alert, NAD. + central adiposapthy Skin: Warm, pink, no rashes, no skin breakdown HEENT: NC/AT, PERRLA, EOMI, clear conjunctiva, Neuro: Alert and oriented, CN II-XII intact, MS 5/5 throughout, sensation intact to light touch Extremities: No joint swelling or tenderness Psych: NL affect today PREVIOUS LABS AND IMAGING: No results found for: CHLPL No results found for: HDL No results found for: LDLCHOL No results found for: TRIG No results found for: CHOLHDL No results found for: HA1C No results found for: ALT, AST, GGT, ALKPHOS, BILITOT, BILIDIR, ALBUMIN, PROT SUMMARY OF VISIT AND RECOMMENDATIONS: Kwaku Blanton presents to the [facility] for a consultative visit regarding obesity management. The patient has Class III Very Severe Morbid Obesity defined by a BMI of 58.91. 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 Kwaku Blanton's history and physical exam were not suggestive of an underlying medical disease that can contribute to weight gain. However, obesity is a multifactorial disease, and in this case, the following factors could be potential contributors: ?? Genetics and Epigenetics:unknown ?? Medications:++ ?? Sleep Disturbance and Circadian Pattern ?? Environment ?? Mental Health and/or Disordered Eating: ++ ?? Nutrition and Eating Patterns ?? Lifestyle and Inactivity:++ ?? Social and Cultural Influences ?? Stress and/or Trauma History - the prolonged cortisol release associated with chronic stress is strongly correlated with the development of obesity The patient has been informed that obesity is a chronic disease requiring intermodal dispatcher management. Obesity is associated with increased risk of adverse health and psychosocial consequences as well as higher mortality. In addition, the increase in visceral fat volume places the patient at greater risk for metabolic disease. We reviewed the overall goals for obesity management, which include improvingthe patient's health, quality of life, and body weight/composition. I explained that a weight loss of just 5-10% of body weight can be associated with improvements in health. Urica: precontemplation Kwaku has schizophrenia and we assessed that the classroom environment would not be helpful for him Medical issues and plan: Class III Very Severe Morbid Obesity: Treatment options were discussed with the patient and includeintensive lifestyle intervention within the medical management pathway ?? Medical Management :: The patient is NOT interested in the Healthy Lifestyles Program (HLP) at the [facility]. . ?? Will schedule a baseline nutrition, visit. I don't feel he will benefit from a HC visit. He willdefinitely need RD intervention and then will follow up with me in 4 weeks. ?? Fasting Labs ordered to assess co-morbidities: ?? CMP, FLP, HA1c, ?? Discuss Biobank Participation: not at this time ?? Further recommendations: ?? Annual screen for or assessment of Type II Diabetes, HTN, Hyperlipidemia, Depression, HAI, NAFLD, vitamin D deficiency and renal disease ?? He may need a sleep study to screen for HAI, consider a RUQ ultrasound if patient has elevated LFTs, and abnormal Lipid Profile, low LDL, and HDL ?? Given the association of obesity with cancer, all age appropriate cancer screenings should be UTD ?? Medication Review: If possible medications that promote weight gain should be avoided and medications that are weight-neutral or promote weight loss should be considered. The medications he is on for his mental health cannot be changed. Obesity Co-morbidities: HLP - nutrition, behavioral health and activity recommendations to promote healthy weight and potentially see an improvement in the following adverse health consequences: Hypertension: ?? Agree with an SALBADOR inhibitor or ARB for the treatment of HTN in this patient as obesity has a direct effect on the angiotenisn- renin system in that adipocyte tissue expresses SALBADOR and angiotensinogen. This activity is higher in visceral adipocyte tissue which is elevated in this patient. I spent a total of 60 minutes with the patient 45 minutes of which were spent in [id number] discussion/counseling re obesity, nutrition and activity as well as obesity related co-morbidities documented in this encounter Plan of Treatment Not on file documented as of this encounter Visit Diagnoses Diagnosis Morbid obesity Adult BMI 50.0-59.9 kg/sq m Body Mass Index 50.0-59.9, adult Essential hypertension Unspecified essential hypertension documented in this encounter Care Teams Linoleum Layer Apprentice Relationship Specialty Start Date End Date Lynne Barrett MD [address] [place] [id number] PCP - General Family Medicine 06/02/16 12/25/19 documented as of this encounter
--- OUTSIDE RECORDS SUMMARY | 2024-09-02 16:13 | XMS_ITS | Encounter Summary ---
Author Organization [facility] Address [address] [place] [id number] Care Team Providers Care Petroleum Engineering Teacher Name Role Phone Lynne Barrett MD Primary Care Provider [phone] Encounter Details Date Type Department Care Team (Late st Contact Info) Description 08/18/2021 Lab Requisition [facility] Pathology & [place] [address] Outr Resulting Lab, Provider Social History Tobacco Use Types Packs/Day Years [...] Procedure Name Priority Date/Time Associated Diagnosis Comments INSULIN Routine 08/18/2021 7:19 EST T3 FREE Routine 08/18/2021 7:19 EST documented in this encounter Results * INSULIN (08/18/2021 7:19 EST) Insulin 7.7 <29.0 uIU/mL 08/19/2021 10:42 EST [facility] Comment: Displayed Reference Range applies to fasting specimens only. Blood VENOUS BLOOD / Unknown 08/18/2021 7:19 EST 08/18/2021 20:59 EST us Provider Outr Resulting Lab CHEMISTRY & BLOOD GA S ORDERABLES Final Result [facility] [address] [place] [address] * T3 FREE (08/18/2021 7:19 EST) T3, Free 3.2 2.8 - 5.3 pg/mL 08/18/2021 21:37 EST [facility] Blood VENOUS BLOOD / Unknown 08/18/2021 7:19 EST 08/18/2021 20:59 EST us Provider Outr Resulting Lab CHEMISTRY & BLOOD GA S ORDERABLES Final Result [facility] [address] [place] [address] documented in this encounter Visit Diagnoses Not on filedocumented in this encounter Care Teams Petroleum Engineering Teacher Relationship Specialty Start Date End Date Lynne Barrett MD [address] [place] [phone] PCP - General 03/01/19 documented as of this encounter
--- OUTSIDE RECORDS SUMMARY | 2024-09-02 16:13 | XMS_ITS | Continuity of Care Document ---
Author Organization [facility] Address [address] [place] [address] Care Team Providers Care Fingernail Technician Name Role Phone Mayo Wilson Emily Primary Care Physician [phone] Encounter [facility] Date(s): 05/24/23 - 05/24/[address] [address] Discharge Disposition: Home or Self Care Attending Physician: Solomon Hemphill MD Admitting Physician: Solomon Hemphill MD Referring Physician: Solomon Hemphill MD Allergies, Adverse Reactions, Alerts No Known [...] BID, # 56 tab, 2 Refill(s), Pharmacy: [facility] [place], 194, cm, 10/04/22 7:36:00 EST, Height/Length Dosing, 137.55, kg, 10/04/22 7:36:00 EST, Weight Dosing Start Date: 01/23/23 Stop Date: 04/17/23 Status: Ordered citalopram 10 mg oral tablet See Instructions, take three (3) at bedtime for one week, then two (2) at bedtime for one week, then one (1) at bedtime., # 42 tab, 0 Refill(s), Pharmacy: [facility] [place], 194, cm, 10/04/22 7:36:00 EST, Height/Length Dosing, 137.55, kg, 10/04/22 7:36:00 EST, Weight Dosing Start Date: 10/07/22 Status: Ordered citalopram 40 mg oral tablet 28 tab, 0 Refill(s) Start Date: 10/26/22 Status: Ordered cloNIDine 0.3 mg oral tablet See Instructions, TAKE 2 TABLETS BY MOUTH IN THE MORNING AND TAKE 1 TABLET AT BEDTIME, # 84 tab, 3 Refill(s), Pharmacy: [place] [id number], 194, cm, 10/04/22 7:36:00 EST, Height/Length Dosing, 137.55, kg, 10/04/22 7:36:00 EST, Weight Dosing Start Date: 03/13/23 Status: Ordered FLUoxetine 20 mg oral capsule 28 cap, 0 Refill(s) Start Date: 10/26/22 Status: Ordered furosemide 40 mg oral tablet 40 mg = 1 tab, Oral, BID, 56 tab, # 60 tab, 11 Refill(s), Pharmacy: [facility] [place] Start Date: 07/07/22 Status: Ordered Latuda 40 mg oral tablet 1 tab, Oral, every night at bedtime, # 30 tab, 2 Refill(s), Pharmacy: [facility] [place], 194, cm, 10/04/22 7:36:00 EST, Height/Length Dosing, 137.55, kg, 10/04/22 7:36:00 EST, Weight Dosing Start Date: 10/07/22 Status: Ordered oxybutynin 10 mg/24 hr oral tablet, extended release 10 mg = 1 tab, Oral, Daily, # 90 tab, 3 Refill(s), Pharmacy: [facility] [place] Start Date: 08/04/22 Status: Ordered PROzac 20 mg oral capsule 20 mg = 1 cap, Oral, Daily, # 28 cap, 2 Refill(s), Pharmacy: [facility] [place], 194, cm, 10/04/22 7:36:00 EST, Height/Length Dosing, 137.55, kg, 10/04/22 7:36:00 EST, Weight Dosing Start Date: 12/23/22 Status: Ordered Vitamin B-12 1000 mcg oral tablet 1,000 mcg = 1 tab, Oral, Daily, 28 unknown unit, 0 Refill(s) Start Date: 01/07/22 Status: Ordered Vitamin B12 1000 mcg oral tablet 1,000 mcg = 1 tab, Oral, Daily, # 30 tab, 2 Refill(s), Pharmacy: [facility] [place] Start Date: 09/01/22 Stop Date: 11/30/22 Status: Ordered Vitamin D3 2000 intl units oral tablet 50 mcg = 1 tab, Oral, Daily, # 28 tab, 2 Refill(s), Pharmacy: [facility] [place], 194, cm, 10/04/22 7:36:00 EST, Height/Length Dosing, 137.55, kg, 10/04/22 7:36:00 EST, Weight Dosing Start Date: 12/23/22 Status: Ordered Vitamin D3 5000 intl units oral tablet 28 unknown unit, 0 Refill(s) Start Date: 10/26/22 Status: Ordered Vyvanse 20 mg oral capsule 28 cap, 0 Refill(s) Start Date: 10/26/22 Status: Ordered Vyvanse 40 mg oral capsule 28 cap, 0 Refill(s) Start Date: 10/26/22 Status: Ordered Vyvanse 70 mg oral capsule 70 mg 1 cap, Oral, every morning, Dr. Carrera Patient, # 30 cap, 0 Refill(s), Pharmacy: [facility] [place], 194, cm, 10/04/22 7:36:00 EST, Height/Length Dosing, 137.55, kg, 10/04/22 7:36:00 EST,Weight Dosing Start Date: 02/17/23 Stop Date: 03/19/23 Status: Ordered Wegovy (0.25 mg dose) subcutaneous solution 0.25 mg =, Subcutaneous, every week, in the abdomen, thigh, or upper arm, # 2 mL, 0 Refill(s), CECILIO,Pharmacy: [facility] [place], 194, cm, 10/04/22 7:36:00 EST, Height/Length Dosing, 137.55, kg, 10/04/22 7:36:00 EST, Weight Dosing Start Date: 03/28/23 Stop Date: 04/25/23 Status: Ordered Problem List Condition Confirmation Course [...] 07/13/16 Active Results Laboratory List Name Date Glucose Level 05/24/23 Hemoglobin A1c 05/24/23 Most recent to oldest [Reference Range]: 1 Glucose Level [74-106 mg/dL] 96 mg/dL (05/24/23 8:43 AM) Hemoglobin A1c [4.0-6.0 %] 5.4 % (05/24/23 8:43 AM) Social History Social History Type Response Smoking Status Smoking tobacco use: Never tobacco user;Never entered on: 03/28/23 Sex Male Patient Care team information Care Team Personnel Name: Mayo Wilson MD Position: Physician Member Role: Informed Provider Address: Address: [address] Care Team Related Persons Name: PATRICK DRIVER Address: Home [address] [facility] [id number] Name: PATRICK DRIVER Address: Home [address] [facility] [id number] Name: LEIF GARVEY Name: SUZIE GARVEY Address: [place] [id number] Address: Home [address] [place] [id number] Name: SUZIE GARVEY Address: [place] [id number] Address: [address] [id number]
--- OUTSIDE RECORDS SUMMARY | 2024-09-02 16:13 | XMS_ITS | Encounter Summary ---
Author Organization [place] [address] Care Team Providers Care Bolt Sorter Name Role Phone Lynne Barrett MD Primary Care Provider [phone] Reason for Visit * Reason Comments Weight Management Follow-up Encounter Details Date Type Department Care Team (Late st Contact Info) Description 09/23/2019 2:00 PM EST Office Visit [facility] at [address] [phone] Reema Izaguirre MD Class 1 obesity due to excess calories with serious comorbidity and body mass index (BMI) of 33.0 to 33.9 in adult Social History Tobacco Use Types Packs/Day Years [...] Sign Reading Time Taken Comments Blood Pressure 128/77 09/23/2019 1:42 PM EST Pulse 57 09/23/2019 1:42 PM EST Temperature - - Respiratory Rate - - Oxygen Saturation 100% 09/23/2019 1:42 PM EST Inhaled Oxygen Concentration - - Weight 123.6 kg (272 lb 8 oz) 09/23/2019 1:42 PM EST Height 193 cm (6' 3.98) 09/23/2019 1:42 PM EST Body Mass Index 33.18 09/23/2019 1:42 PM EST documented in this encounter Patient Instructions * Patient Instructions* Reema Izaguirre MD - 09/23/2019 2:00 PM EST Please follow up liver function tests with your primary care doctor in the next few months--betweenOctober and December. (Letter today.) You have an excellent diet. Continue at least 3 hours of moderate intensity exercise per week. Plan to discuss follow up with your guardian--at this time, you seem to be making excellent choiceson your own, and do not need continued assistance from the [facility]. You are always welcome to return as needed. documented in this encounter Progress Notes * Reema Izaguirre MD - 09/23/2019 2:00 PM EST [facility] Visit Patient Name: Kwaku Blanton Date of : 1980 Age: [address] Lynne Barrett MD Thank you for referring Kwaku Blanton to the [facility] for consultation regarding obesity. CHIEF COMPLAINT: Follow-up for Obesity INTERVAL HISTORY / PROGRESS TOWARD GOALS: [x] I reviewed past / interim records including notes and labs. Kwaku is participating in our Obesity Medicine Pathway, and is here for his 13-month follow up visit. ?? He has lost 212 pounds over the last 13 months, which represents 43.8% of his total body weight. He was last seen by me in April 2019, and has lost 41 pounds since that time. Recent labs included a normal lipid panel, normal A1c and normal LFTs with the exception of mildly elevated total protein levels. He and his caregiver report that he is continuing to focus on a low-carbohydrate diet that is rich in vegetables and protein. He did have increased carbohydrate intake over the holidays, but has since returned to his usual diet. He is not formally tracking his calorie intake, but does keep a daily food journal. He reports his long-term weight goal is between 220 and 240 pounds. With regards to exercise, he is going to the gym 3-4 days per week, and is there for 90 - 120 minutes per session. He is still going with his friend Tirso--they play racketball, use the sauna, get on the treadmill, lift weights and then play racketball again before heading home. In terms of stress/mood, he reports that his mood remains very good. His buspirone was recently decreased from 45 mg BID to 30 mg BID. With regards to sleep, he reports he is sleeping about 11 hours per night, and sleeps well through the night. 24 hour diet recall ([facility] Monday): - Breakfast: Oatmeal with cinnamon, apple, carrots - Lunch: Salad with tomatoes, cheese, pickled eggs - Dinner: Salad with tomatoes, cheese, pickled eggs and chicken breast with Albanian dressing - Snacks: Slim Juan, apple - Drinks: 3 cups of black coffee, seltzer, water - Dessert: None PREVIOUS LABS: Lab Results Component Value Date CHLPL 144 03/15/2019 CHLPL 175 09/07/2018 Lab Results Component Value Date HDL 40 03/15/2019 HDL 31 (ExtL) 09/07/2018 Lab Results Component Value Date LDLCHOL 89 03/15/2019 LDLCHOL 113 09/07/2018 Lab Results Component Value Date TRIG 74 03/15/2019 TRIG 157 (ExtH) 09/07/2018 Lab Results Component Value Date CHOLHDL 3.6 03/15/2019 Lab Results Component Value Date HA1C 5.5 05/06/2019 No results found for: GLUCFASTING Lab Results Component Value Date AST 28 05/06/2019 ALT 54 05/06/2019 [facility] Followup Responses 08/31/2018 URICA - [...] HPI for additional pertinent +/- findings Constitutional: Normal appetite and energy. Psychiatric: No worsened anxiety or depression VITAL SIGNS: Vitals: 09/23/19 1342 BP: 128/77 Pulse: 57 SpO2: 100% Weight: 123.6 kg (272 lb 8 oz) Height: 193 cm (6' 3.98) Body mass index is 33.18 kg/m??. Last 5 weight values: Wt Readings from Last 5 Encounters: 09/23/19 123.6 kg (272 lb 8 oz) 05/06/19 (!) 142.2 kg (313 lb 8 oz) 03/15/19 (!) 156.3 kg (344 lb 8 oz) 03/07/19 (!) 161 kg (355 lb) 01/03/19 (!) 174.8 kg (385 lb 4.8 oz) PHYSICAL EXAM: Gen: Alert and active, NAD. +Central adiposapthy Skin: Warm, pink, no rashes HEENT: NC/AT, EOMI, clear conjunctiva, MMM Neuro: Alert and oriented Psych: Normal affect today SUMMARY OF VISIT AND RECOMMENDATIONS: Kwaku Blanton was seen in follow up today and an updated medical, diet and activity review was completed. Additional goals were set for changes in health habits (see below) as was a plan for evaluation and treatment of obesity related co-morbidities. Medical issues and plan: Class??I Obesity:? Maciej is participating in the Obesity Medicine Pathway at the [facility], and is here for his 13-month follow up visit; at this time, he has lost 212 pounds through radical diet change and participation in frequent, high-intensity exercise. He has lost almost 44% of his body weight. ?? We had an extended discussion about next steps; he feels his current changes are sustainable, and that he is empowered to continue to make these changes going forward. We agreed that at this time (following review with his guardian) we will discontinue care at the [facility] (although he is very welcome to re-engage in care in the future as needed). ?? Goal setting:? Follow up liver function tests with your primary care doctor in the next few months--between October and December ?? Continue healthy dietary changes ?? Continue at least 3 hours of moderate intensity exercise per week. ? Dyslipidemia, now resolved: ?? Nutrition and activity recommendations to promote healthy weight ?? Recent lipid panel showed improvement in total cholesterol, HDL, LDL and triglycerides ?? No further follow up (provided guardian agrees); he knows [facility] is [facility] any time in the future I spent a total of 15 minutes with the patient 12 minutes of which were spent in [id number] discussion/counseling re obesity, nutrition and activity as well as obesity related co-morbidities documented in this encounter Plan of Treatment Not on file documented as of this encounter Visit Diagnoses Diagnosis Class 1 obesity due to excess calories with serious comorbidity and body mass index (BMI) of 33.0 to 33.9 in adult documented in this encounter Care Teams Bolt Sorter Relationship Specialty Start Date End Date Lynne Barrett MD [address] [place] [id number] PCP - General Family Medicine 06/02/16 12/25/19 documented as of this encounter
--- OUTSIDE RECORDS SUMMARY | 2024-09-02 16:13 | XMS_ITS | Continuity of Care Document ---
Author Organization [facility] Address [address] [place] [address] Care Team Providers Care Tire Repairer Name Role Phone Mayo Wilson Primary Care Physician [phone] [facility] - 03[facility]12/24 [facility] [address] [place] [address] Discharge Disposition: Home or Self Care Attending [...] virus vaccine, inactivated 05/23/13 Abel rded Medications adult briefs adult briefs, XL Adult Pull ups, Supply, See instructions, # 100 EA, 6 Refill(s) Start Date: 05/11/23 Status: Ordered busPIRone 30 mg oral tablet 1 tab, Oral, BID, # 56 tab, 2 Refill(s), Pharmacy: [facility] [place], 194, cm, 10/04/22 7:36:00 EST, Height/Length Dosing, 137.55, kg, 10/04/22 7:36:00 EST, Weight Dosing Start Date: 01/23/23 Stop Date: 04/17/23 Status: Ordered cloNIDine 0.2 mg oral tablet 0.4 mg = 2 tab, Oral, Once, # 180 tab, 0 Refill(s) Start Date: 07/19/23 Status: Ordered cloNIDine 0.3 mg oral tablet See Instructions, TAKE 1 TABLET AT BEDTIME, # 84 tab, 3 Refill(s), Pharmacy: [id number], 194, cm, 10/04/22 7:36:00 EST, Height/Length Dosing, 137.55, kg, 10/04/22 7:36:00 EST, Weight Dosing Start Date: 03/13/23 Status: Ordered FLUoxetine 40 mg oral capsule 40 mg = 1 cap, Oral, Daily, # 30 cap, 0 Refill(s) Start Date: 02/23/24 Status: Ordered furosemide 40 mg oral tablet 2 tab, Oral, Daily, # 56 tab, 6 Refill(s), Pharmacy: [id number], 188.59, cm, 10/25/23 9:01:00 EST, Height, 151.59, kg, 10/25/23 9:04:00 EST, Weight Dosing Start Date: 12/15/23 Status: Ordered lisinopril 20 mg oral tablet 1 tab, Oral, Daily, # 28 tab, 3 Refill(s), Pharmacy: [id number], 188.59, cm, 10/25/23 9:01:00 EST, Height, 146.95, kg, 12/20/23 9:40:00 EDT, Weight Dosing Start Date: 02/08/24 Status: Ordered lurasidone 20 mg oral tablet 20 mg = 1 tab, Oral, every other day, # 30 tab, 0 Refill(s) Start Date: 07/19/23 Status: Ordered Metoprolol Succinate ER 50 mg oral tablet, extended release 1 tab, Oral, Daily, # 28 tab, 2 Refill(s), Pharmacy: [id number], 188, cm, 02/21/24 12:16:00 EDT, Height, 135.62, kg, 02/21/24 12:18:00 EDT, Weight Dosing Start Date: 03/08/24 Status: Ordered oxybutynin 10 mg/24 hr oral tablet, extended release 1 tab, Oral, Daily, # 28 tab, 3 Refill(s), Pharmacy: [place] [address], 188.59, cm, 10/25/23 9:01:00 EST, Height, 146.95, kg, 12/20/23 9:40:00 EDT, Weight Dosing Start Date: 02/08/24 Status: Ordered Vitamin B12 1000 mcg oral tablet 1,000 mcg = 1 tab, Oral, Daily, # 30 tab, 2 Refill(s), Pharmacy: [facility] Start Date: 09/01/22 Stop Date: 11/30/22 Status: Ordered Vitamin D3 2000 intl units oral tablet 50 mcg = 1 tab, Oral, Daily, # 28 tab, 2 Refill(s), Pharmacy: [facility], 194, cm, 10/04/22 7:36:00 EST, Height/Length Dosing, 137.55, kg, 10/04/22 7:36:00 EST, Weight Dosing Start Date: 12/23/22 Status: Ordered Vyvanse 20 mg oral capsule 20 mg = 1 cap, Oral, every morning, # 30 cap, 0 Refill(s), Pharmacy: [facility], 188,cm, 02/21/24 12:16:00 EDT, Height, 139.25, kg, 03/12/24 14:00:00 EDT, Weight Dosing Start Date: 03/12/24 Status: Ordered Vyvanse 40 mg oral capsule 40 mg = 1 cap, Oral, every morning, new dose, # 30 cap, 0 Refill(s), Pharmacy: [id number], 188.59, cm, 10/25/23 9:01:00 EST, Height, [...] obesity Confirmed 06/22/16 Active Obesity Confirmed Active Palpitations Confirmed Active Annual physical exam Confirmed Active Screening for colon cancer Confirmed Active Schizophrenia Confirmed 06/22/16 Active Superficial skin ulcer of lower limb Confirmed 06/22/16 Active Tachycardia Confirmed Active Urinary incontinence Confirmed Active Venous stasis ulcer of leg Confirmed 07/13/16 Active Results Laboratory List Name Date CBC w/o Diff (Hemogram) 03/12/24 Comprehensive Metabolic Panel (CMP) 03/12 TSH w/ Rflx to Free T4 03/12/24 Most recent to oldest [Reference Range]: 1 WBC [5.0-10.0 x10^3/mcL] 8.4 x10^3/mcL (03/12/24 2:28 PM) RBC [4.6-6.0 x10^6/mcL] 5.0 x10^6/mcL (03/12/24 2:28 PM) BUN [7-18 mg/dL] 17 mg/dL (03/12/24 2:28 PM) Glucose Level [74-106 mg/dL] 98 mg/dL (03/12/24 2:28 PM) Potassium Level [3.5-5.1 mmol/L] 4.5 mmo l/L (03/12/24 2:28 PM) MCV [80.0-96.0 fL] 92.6 fL (03/12/24 2:28 PM) AST [15-37 unit/L] 24 unit/L (03/12/24 2:28 PM) ALT [16-63 unit/L] 21 unit/L (03/12/24 2:28 PM) MCHC [31.0-35.0 g/dL] 33.3 g/dL (03/12/24 2:28 PM) Sodium Level [136-145 mmol/L] 137 mmol/L (03/12/24 2:28 PM) Hct [41.0-51.0 %] 46.5 % (03/12/24 2:28 PM) Calcium Level [8.5-10.1 mg/dL] 9.6 mg/dL (03/12/24 2:28 PM) Albumin Level [3.4-5.0 g/dL] 4.1 g/dL (03/12/24 2:28 PM) Protein Total [6.4-8.2 g/dL] 7.9 g/dL (03/12/24 2:28 PM) MCH [26.0-32.0 pg] 30.9 pg (03/12/24 2:28 PM) Bilirubin Total [0.2-1.0 mg/dL] 0.6 mg/d L (03/12/24 2:28 PM) Hgb [14.0-18.0 g/dL] 15.5 g/dL (03/12/24 2:28 PM) Alk Phos [46-146 unit/L] 70 unit/L (03/12/24 2:28 PM) Platelets [130-450 x10^3/mcL] 312 x10^3/ mcL (03/12/24 2:28 PM) CO2 [21-32 mmol/L] 29 mmol/L (03/12/24 2:28 PM) TSH [0.358-3.740 mcIntlUnit/mL] 1.229 mc IntlUnit/mL (03/12/24 2:28 PM) eGFR Non-AA [>=60] 82 (03/12/24 2:28 PM) eGFR AA [>=60] 82 (03/12/24 2:28 PM) Chloride Level [98-107 mmol/L] 101 mmol/ L (03/12/24 2:28 PM) RDW-CV [11.5-14.5 %] 13.2 % (03/12/24 2:28 PM) Creatinine Level [0.70-1.30 mg/dL] 1.14 mg/dL (03/12/24 2:28 PM) Social History Social History Type Response Smoking Status Smoking tobacco use: Never tobacco user;Never entered on: 03/28/23 Sex Male Patient Care team information Care Team Personnel Name: Mayo Wilson MD Position: Physician Member Role: Informed Provider Address: Address: [address] Care Team Related Persons Name: LEIF GARVEY
--- OUTSIDE RECORDS SUMMARY | 2024-09-02 16:13 | XMS_ITS | Encounter Summary ---
Author Organization [facility] [place] [address] Care Team Providers Care Accounts Payable Coordinator Name Role Phone Lynne Barrett MD Primary Care Provider Reason for Visit * Reason Comments Weight Management Follow-up Encounter Details Date Type Department Care Team (Late st Contact Info) Description 05/06/2019 4:00 PM EDT Office Visit Weight and Wellness at [address] [phone] Reema Izaguirre MD Class 2 severe obesity due to excess calories with serious comorbidity and body mass index (BMI) of 38.0 to 38.9 in adult; Dyslipidemia Social History Tobacco Use Types Packs/Day Years [...] Sign Reading Time Taken Comments Blood Pressure 138/79 05/06/2019 3:38 PM EDT Pulse 68 05/06/2019 3:38 PM EDT Temperature - - Respiratory Rate 16 05/06/2019 3:38 PM EDT Oxygen Saturation 99% 05/06/2019 3:38 PM EDT Inhaled Oxygen Concentration - - Weight 142.2 kg (313 lb 8 oz) 05/06/2019 3:38 PM EDT Height 193 cm (6' 3.98) 05/06/2019 3:38 PM EDT Body Mass Index 38.18 05/06/2019 3:38 PM EDT documented in this encounter Patient Instructions * Patient Instructions* Reema Izaguirre MD - 05/06/2019 4:00 PM EDT To drop into the overweight category, your target weight is about 240 pounds. You have lost 171 pounds since starting to work with us. This is 35% of your total body weight. Hemoglobin A1c and liver function tests today. All markers of your cholesterol panel have improved significantly--this is excellent! GOALS 1) Keep making healthy food choices, focusing on avoidance of sugar and processed foods. 2) Continue daily exercise Follow up with Dr Izaguirre in 3 months, sooner as needed. documented in this encounter Progress Notes * Reema Izaguirre MD - 05/06/2019 4:00 PM EDT [facility] Visit Patient Name: Kwaku Blanton Date of : 1980 Age: [address] Lynne Barrett MD Thank you for referring Kwaku Blanton to the [facility] for consultation regarding obesity. CHIEF COMPLAINT: Follow-up for Obesity INTERVAL HISTORY / PROGRESS TOWARD GOALS: [x] I reviewed past / interim records including notes and labs. Kwaku is participating in our Obesity Medicine Pathway, and is here for his 9-month follow up visit. ?? He has lost 171 pounds over the last 9 months, which represents 35.3% of his total body weight. He was last seen by our dietitian Andie in August, with a recommendation to track food intake, focus on balanced plate choices and good portion sizes. ?? He reports that he is focusing on high-protein meals, and increasing his intake of vegetables. He has cut out fast food. He is also limiting carbs and sugar. He tries to keep healthy snacks around, including yogurt, fruit and nuts. On the rare occasions that he has a treat or unhealthy snack, he isbuying a small quantity, enjoying it in the moment, but not buying in large quantities or bringing any home. With regards to exercise, he continues to go to the gym 5-6 days per week for 90 - 120 minutes per session. 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 He reports that he generally feels well--I feel healthy! 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 24 hour diet recall: - Breakfast: Apple, bowl of Cheerios with 2% milk - Lunch: Bowl of homemade beef stew - Dinner: Salad with seasoned chicken, nuts, cheese - Snacks: Pear - Drinks: 2 cups of coffee with milk - Dessert: None PREVIOUS LABS: Lab Results Component Value Date CHLPL 144 03/15/2019 CHLPL 175 09/07/2018 Lab Results Component Value Date HDL 40 03/15/2019 HDL 31 (ExtL) 09/07/2018 Lab Results Component Value Date LDLCHOL 89 03/15/2019 LDLCHOL 113 09/07/2018 Lab Results Component Value Date TRIG 74 03/15/2019 TRIG 157 (ExtH) 09/07/2018 Lab Results Component Value Date CHOLHDL 3.6 03/15/2019 No results found for: HA1C No results found for: GLUCFASTING Lab Results Component Value Date AST 54 09/07/2018 ALT 54 09/07/2018 [facility] Followup Responses 08/31/2018 URICA - [...] pertinent +/- findings Constitutional: Normal appetite and good energy. No daytime tiredness. Psychiatric: No anxiety, depression VITAL SIGNS: Vitals: 05/06/19 1538 BP: 138/79 Pulse: 68 Resp: 16 SpO2: 99% Weight: (!) 142.2 kg (313 lb 8 oz) Height: 193 cm (6' 3.98) Body mass index is 38.18 kg/m??. Last 5 weight values: Wt Readings from Last 5 Encounters: 05/06/19 (!) 142.2 kg (313 lb 8 oz) 03/15/19 (!) 156.3 kg (344 lb 8 oz) 03/07/19 (!) 161 kg (355 lb) 01/03/19 (!) 174.8 kg (385 lb 4.8 oz) 11/08/18 (!) 194.8 kg (429 lb 8 oz) PHYSICAL EXAM: Gen: Alert and active, NAD. +Central adiposapthy. Accompanied by a caregiver Lynne. Skin: Warm, pink, no rashes HEENT: NC/AT, EOMI, clear conjunctiva, MMM Neck: Supple and thick Neuro: Alert and oriented Psych: Mildly flattened affect today, slightly reduced eye contact SUMMARY OF VISIT AND RECOMMENDATIONS: Kwaku Blanton was seen in follow up today and an updated medical, diet and activity review was completed. Additional goals were set for changes in health habits (see below) as was a plan for evaluation and treatment of obesity related co-morbidities. Medical issues and plan: Class III Obesity: ?? Maciej is participating [facility], and is here for his 9-month follow up visit. He has lost 171 pounds in the last 7 months through radical diet change and participation in daily, high-intensity exercise, which represents weight loss of 35%of his total body weight. He is very pleased by these changes, and reports that he hopes to reach aweight of about 240 pounds, which would produce a BMI of ~29. Given his continued success through diet and exercise, he declines a referral to our dietitian at this time, but reports he would consider it in the future as needed. ?? Goal setting: ?? Continue healthy diet changes, focusing on high-protein options, avoidance of calorie-containingbeverages, avoidance of sweets ?? Continue 5+ hours of moderate exercise weekly ?? Labs today: LFTs, A1c ? Dyslipidemia, now resolved: ?? Nutrition and activity recommendations to promote healthy weight ?? Recent lipid panel showed improvement in total cholesterol, HDL, LDL and triglycerides F/u in: 3 months per his preference I spent a total of 20 minutes with the patient 15 minutes of which were spent in [id number] discussion/counseling re obesity, nutrition and activity as well as obesity related co-morbidities documented in this encounter Plan of Treatment Not on file documented as of this encounter Visit Diagnoses Diagnosis Class 2 severe obesity due to excess calories with serious comorbidity and body mass index (BMI) of 38.0 to 38.9 in adult Dyslipidemia Other and unspecified hyperlipidemia documented in this encounter Care Teams Accounts Payable Coordinator Relationship Specialty Start Date End Date Lynne Barrett MD [address] [place] [address] PCP - General Family Medicine 06/02/16 12/25/19 documented as of this encounter
--- OUTSIDE RECORDS SUMMARY | 2024-09-02 16:13 | XMS_ITS | Encounter Summary ---
Author Organization [facility] Address [address] [facility] [place] [address] Care Team Providers Care Coning Machine Operator Name Role Phone Lynne Barrett MD Primary Care Provider [phone] Encounter Details Date Type Department Care Team (Latest Contact Info) Description 05/06/2019 4:30 PM EDT Laboratory Appointment Lab at [facility] [address] [place] [id number] Morbid obesity with BMI of 40.0-44.9, adult; Hyperglycemia Social History Tobacco Use Types Packs/Day Years [...] Procedure Name Priority Date/Time Associated Diagnosis Comments HC HEMOGLOBIN A1C Routine 05/06/2019 4:1 4 PM EDT Hyperglycemia Morbid obesity with BMI of 40.0-44.9, adult HC VENIPUNCTURE Routine 05/06/2019 4:14 PM EDT Morbid obesity with BMI of 40.0-44.9, adult documented in this encounter Results * Hemoglobin A1c (05/06/2019 4:14 PM EDT) Hemoglobin A1c 5.5 4.3 - 5.6 % [facility] Comment: Reference Range: 4.3 - 5.6% 5.7 - 6.4% - Increased Risk of Developing Diabetes Mellitus >= 6.5% - Consistent with diagnosis of Diabetes Mellitus In the absence of hyperglycemia (i.e. plasma glucose > 200 mg/dL) or classic symptoms of hyperglycemia a repeat measurement of HbA1c should be performed on a separate sample to confirm the diagnosis. Diagnosis and Classification of Diabetes Mellitus, Diabetes Care 2013; 36: Suppl. 1, Q30-58 Estimated Average Glucose 112 mg/dL [facility] Comment: eAG equivalents for HbA1c percentages: HbA1c(%) ?eAG(mg/dL) 6.0 ?126 6.5 ?140 7.0 ?154 7.5 ?169 8.0 ?183 8.5 ?197 9.0 ?212 9.5 ?226 10.0 ? 240 Limitations: The eAG calculation has not been validated on women, individuals below 18 years old and above 70 years old, and individuals with hemoglobinopathies. Additional resources are available on the ADA website. Ahsan MARIN, Robbin J, Jair R, et al. ??Translating the A1C assay into estimated average glucose values. ??Diabetes Care 2008:31(8):2845-6906. Blood specimen (specimen) 05/06/2019 4:14 PM EDT 05/06/2019 6:18 PM EDT Narrative Resulting Agency Comment Spec In Lab Reema Izaguirre MD CHEMISTRY ORDERABLES [facility] [place] [address] * (ABNORMAL) Hepatic Function Panel (05/06/2019 4:14 PM EDT) Protein, Total 8.6(H) 6.1 - 8.0 gm/dL [facility] Albumin 4.9 3.2 - 5.2 gm/dL [facility] Aspartate Aminotransferase 28 0 - 39 unit/L [facility] Alanine Aminotransferase 54 0 - 55 unit/L [facility] Alkaline Phosphatase 83 40 - 130 unit/L [facility] Bilirubin, Total 0.5 0.2 - 1.3 mg/dL [facility] Bilirubin, Direct 0.1 0.0 - 0.3 mg/dL [facility] Blood specimen (specimen) 05/06/2019 4:14 PM EDT 05/06/2019 6:18 PM EDT Narrative Resulting Agency Comment Spec In Lab Reema Izaguirre MD CHEMISTRY ORDERABLES Performing Organization Address City/State/[facility] Co de Phone Number [facility] [place] [address] documented in this encounter Visit Diagnoses Diagnosis Morbid obesity with BMI of 40.0-44.9, adult Morbid obesity Hyperglycemia Other abnormal glucose documented in this encounter Care Teams Coning Machine Operator Relationship Specialty Start Date End Date Lynne Barrett MD [address] [place] [address] PCP - General Family Medicine 06/02/16 12/25/19 documented as of this encounter
--- OUTSIDE RECORDS SUMMARY | 2024-09-02 16:13 | XMS_ITS | Encounter Summary ---
Author Organization [facility] [place] [address] Care Team Providers Care Course Instructor Name Role Phone Lynne Barrett MD Primary Care Provider [phone] Encounter Details Date Type Department Care Team (Late st Contact Info) Description 12/12/2019 Abstract Weight and Wellness at [facility] [address] [place] [address] Yolande Charlton, BROOMMAKING SUPERVISOR Social History Tobacco Use Types Packs/Day Years [...] on filedocumented in this encounter Care Teams Course Instructor Relationship Specialty Start Date End Date Lynne Barrett MD [address] [place] [address] PCP - General Family Medicine 06/02/16 12/25/19 documented as of this encounter
--- OUTSIDE RECORDS SUMMARY | 2024-09-02 16:13 | XMS_ITS | Clinical Summary ---
Author Organization [facility] Address One [facility] [place] [address] Care Team Providers Care Setter Machine Name Role Phone Unavailable Primary Care Provider Unavailabl e Allergies No known active allergies Medications Medication Sig Dispensed Refills Start Date End Date Status amLODIPine (NORVASC) 10 mg Tablet Take 10 mg by mouth daily. Active citalopram (CELEXA) 20 mg Tablet Take 20 mg by mouth daily. Active cloNIDine HCl (CATAPRES) 0.3 mg Tablet Take 0.3 mg by mouth 2 times daily. Active furosemide (LASIX) 40 mg Tablet Take 40 mg by mouth daily. Active docusate sodium (COLACE) 100 mg Capsule Take 200 mg by mouth daily as needed (take 2 capsules once daily as needed (total of 200 mg)). Active senna (SENOKOT) 8.6 mg Tablet Take 1 tablet by mouth daily. Active acetaminophen (TYLENOL) 500 mg Tablet Take 1,000 mg by mouth every 6 hours as needed for Pain. Active nystatin (MYCOSTATIN) Powder Apply topically 2 times daily. Active lurasidone (LATUDA) 40 mg Tablet Take 40 mg by mouth daily. Active oxybutynin (DITROPAN-XL) 10 mg Tablet Extended Rel 24 hr take 1 tablet by mouth once daily 0 11/06/2018 Active busPIRone (BUSPAR) 30 mg Tablet Take 30 mg by mouth 2 times daily. Active Active Problems Problem Noted Date Diagnosed Date Class 3 severe obesity due t o excess calories with serious comorbidity and body mass index (BMI) of 45.0 to 49.9 in adult 01/03/2019 Venous stasis ulcers of both lower extremities 1 09/12/2015 Lymphedema of both lower extremities 06/22/2016 Ulcers of both lower legs, limited to breakdown of skin 06/22/2016 Morbid obesity 06/22/2016 Schizophrenia 06/22/2016 Resolved Problems Problem Noted Date Diagnosed Date Resolved Date Adult BMI 50.0-59.9 kg/sq m 08/31/2018 01/03/2019 Hypertension 06/22/2016 01/03/2019 Social History Tobacco Use Types Packs/Day Years Used Date Smoking Tobacco: Former Smokeless Tobacco: Never Comments:only smokes for 6 m [facility] -15 years ago Sex and Gender Information Value Date Recorded Sex Assigned at Not on file Gender Identity Not on file Sexual Orientation Not on file Last Filed Vital Signs Vital Sign Reading Time Taken Comments Blood Pressure 128/77 09/23/2019 1:42 PM EST Pulse 57 09/23/2019 1:42 PM EST Temperature 36.9 ??C (98.5 ??F) 09/21/2016 3:41 PM ES T Respiratory Rate 16 05/06/2019 3:38 PM EDT Oxygen Saturation 100% 09/23/2019 1:42 PM EST Inhaled Oxygen Concentration - - Weight 123.6 kg (272 lb 8 oz) 09/23/2019 1:42 PM EST Height 193 cm (6' 3.98) 09/23/2019 1:42 PM EST Body Mass Index 33.18 09/23/2019 1:42 PM EST Plan of Treatment Health Maintenance Due Date Last Done Comments HIV screen 1998 Hepatitis C Screening 1998 Hepatitis B vaccine (0-59 yrs) (1) 1999 Tetanus/Diphtheria/Pertussis Vaccines (1 - Tdap) 1999 Lipid Screening 03/15/2024 03/15/2019, 09/07/2018 Covid-19 Vaccine ( season) 2024 Influenza (Flu) vaccine (1 o f 1 - Influenza standard series) 04/21/2024 Diabetes Screening (HgbA1C or Glucose) Discontinued Procedures Procedure Name Priority Date/Time Associated Diagnosis Comments HC HEMOGLOBIN A1C Routine 05/06/2019 4:1 4 PM EDT Hyperglycemia Morbid obesity with BMI of 40.0-44.9, adult LIPID PANEL (REFLEX DIRECT LDL) Routine 03/15/2019 5:25 PM EDT Morbid obesity with BMI of 40.0-44.9, adult from Last 3 Months or Most Recently Relevant to Health Maintenance Results * Hemoglobin A1c (05/06/2019 4:14 PM EDT) Hemoglobin A1c 5.5 4.3 - 5.6 % [facility] Comment: Reference Range: 4.3 - [...] Mellitus, Diabetes Care 2013; 36: Suppl. 1, S67-74 Estimated Average Glucose 112 mg/dL [facility] Comment: eAG equivalents for HbA1c [...] into estimated average glucose values. ??Diabetes Care 2008:31(8):0710-5156. Blood specimen (specimen) 05/06/2019 4:14 PM EDT 05/06/2019 6:18 PM EDT Narrative Resulting Agency Comment Spec In Lab Reema Izaguirre MD CHEMISTRY ORDERABLES [facility] [place] [address] * Lipid Panel (03/15/2019 5:25 PM EDT) Cholesterol, Total 144 mg/dL [facility] Comment: Lower Risk: <200 mg/dL Average Risk: 200-239 mg/dL Higher Risk: >mp=426 mg/dL Triglyceride 74 mg/dL [facility] Comment: Average Risk/Lower Risk: <150 mg/dL Borderline High Risk: 150-199 mg/dL High Risk: 200-499 mg/dL Very High Risk: >cj=765 mg/dL HDL Cholesterol 40 mg/dL [facility] Comment: Males: ?? Higher Risk: <40 mg/dL Females: ?? HIgher Risk: <50 mg/dL LDL Cholesterol 89 mg/dL [facility] Comment: Lowest Risk: <100 mg/dL Lower Risk: 100-129 mg/dL Borderline High Risk: 130-159 mg/dL High Risk: 160-189 mg/dL Very High Risk: >jb=981 mg/dL Cholesterol/HDL Ratio 3.6 ratio [facility] Lipid Interpretation See Note [facility] Comment: Lipid management should be guided by a patient? s ASCVD risk, goals and preferences. ACC/AHA Guidelines recommend high intensity statin if clinical ASCVD or LDL greater than or equal to 190 mg/dL. http://[employer].url.com/QQW-VMS-Dgtpjwsrq Adults aged 40-75 with LDL 70-189 mg/dL should have their 10 year ASCVD risk estimated with the ACC/AHA ASCVD risk auto body estimator http://tools.acc.org/IPFYM-Uqln-Sqfybizxq/ Statin should be discussed if risk greater than or equal to 7.5% in non-diabetics. With diabetes, moderate intensity statin is recommended if risk less than 7.5%, high intensity if risk greater than or equal to 7.5%. Annual lipid monitoring on statins is not necessary. Evaluate secondary causes of Triglycerides greater than 500 mg/dL or LDL greater than 190 mg/dL: See table 6 of ACC/AHA Guideline. Lifestyle modification is a critical component of ASCVD risk reduction. Blood specimen (specimen) 03/15/2019 5:25 PM EDT 03/15/2019 6:11 PM EDT Narrative Resulting Agency Comment Spec In Lab Reema Izaguirre MD CHEMISTRY ORDERABLES [facility] [place] [address] from Last 3 Months or Most Recently Relevant to Health Maintenance
--- OUTSIDE RECORDS SUMMARY | 2024-09-02 16:13 | XMS_ITS | Encounter Summary ---
Author Organization [facility] [place] [address] Care Team Providers Care Special Effects Designer Name Role Phone Lynne Barrett MD Primary Care Provider [phone] Encounter Details Date Type Department Care Team (Late st Contact Info) Description 09/21/2016 4:00 PM EST Office [place] [address] Emmy Mcdaniels APRN Lymphedema of both lower extremities Social History Tobacco Use Types Packs/Day Years Used Date Smoking Tobacco: Never Sex and Gender Information Value Date Recorded Sex Assigned at Not on file Gender Identity Not on file Sexual Orientation Not on file documented as of this encounter Progress Notes * Emmy Mcdaniels APRN - 09/21/2016 4:00 PM EST [facility] Progress Note ?? Reason for visit: Lymphedema of lower extremities?? HPI: Mr. Blanton is here today for F/U Lymphedema to BLE. Per his report, his PCP is now coordinating care for his lower extremities. The [facility] is receiving order from Dr. Barrett and he would like to follow with her. He is discontinuing his care at the wound center. He is wearing Juxta Lites now measured per NPS. He is tolerating the Juxta Lites well. He has no open wounds currently to lower extremities.? Examination: Temp-98.5 P-86 BP- 150/70 Patient is alert, conversant. Juxta Lites were removed. He has no open wounds to BLE. ?? Impression/Plan: Kwaku Balnton is a 36 y.o. year old male who was seen today for follow-up Lymphedema to BLE.His legs have healed with no open wounds. He will now be followed by his PCP Dr. Barrett for care . [facility] will continue to follow him with orders per . Kwaku Blanton was seen today along with: Katerin uDque RN, [facility] who provided technical wound care. Please see her note for full details of the visit. documented in this encounter Plan of Treatment Not on file documented as of this encounter Visit Diagnoses Diagnosis Lymphedema of both lower extremities documented in this encounter Care Teams Special Effects Designer Relationship Specialty Start Date End Date Lynne Barrett MD [address] [place] [address] PCP - General Family Medicine 06/02/16 12/25/19 documented as of this encounter
--- OUTSIDE RECORDS SUMMARY | 2024-09-02 16:13 | XMS_ITS | Continuity of Care Document ---
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 Allergies, Adverse Reactions, Alerts No Known Medication [...] BID, # 56 tab, 2 Refill(s), Pharmacy: [facility], 194, cm, 10/04/22 7:36:00 EST, Height/Length Dosing, 137.55, kg, 10/04/22 7:36:00 EST, Weight Dosing Start Date: 01/23/23 Stop Date: 04/17/23 Status: Ordered cloNIDine 0.2 mg oral tablet 0.4 mg = 2 tab, Oral, Once, # 180 tab, 0 Refill(s) Start Date: 07/19/23 Status: Ordered cloNIDine 0.3 mg oral tablet See Instructions, TAKE 1 TABLET AT BEDTIME, # 84 tab, 3 Refill(s), Pharmacy: [facility] [address], 194, cm, 10/04/22 7:36:00 EST, Height/Length Dosing, 137.55, kg, 10/04/22 7:36:00 EST, Weight Dosing Start Date: 03/13/23 Status: Ordered furosemide 40 mg oral tablet 2 tab, Oral, Daily, # 56 tab, 6 Refill(s), Pharmacy: [facility] [address], 188.59, cm, 10/25/23 9:01:00 EST, Height, 151.59, kg, 10/25/23 9:04:00 EST, Weight Dosing Start Date: 12/15/23 Status: Ordered lisinopril 20 mg oral tablet 1 tab, Oral, Daily, # 28 tab, 3 Refill(s), Pharmacy: [facility] [address], 188.59, cm, 10/25/23 9:01:00 EST, Height, 146.95, kg, 12/20/23 9:40:00 EDT, Weight Dosing Start Date: 02/08/24 Status: Ordered lurasidone 20 mg oral tablet 20 mg = 1 tab, Oral, every other day, # 30 tab, 0 Refill(s) Start Date: 07/19/23 Status: Ordered Metoprolol Succinate ER 50 mg oral tablet, extended release 1 tab, Oral, Daily, # 28 tab, 3 Refill(s), Pharmacy: [facility] [address], 188.59, cm, 10/25/23 9:01:00 EST, Height, 151.59, kg, 10/25/23 9:04:00 EST, Weight Dosing Start Date: 11/17/23 Status: Ordered oxybutynin 10 mg/24 hr oral tablet, extended release 1 tab, Oral, Daily, # 28 tab, 3 Refill(s), Pharmacy: [id number], 188.59, cm, 10/25/23 9:01:00 EST, Height, 146.95, kg, 12/20/23 9:40:00 EDT, Weight Dosing Start Date: 02/08/24 Status: Ordered PROzac 20 mg oral capsule 20 mg = 1 cap, Oral, Daily, # 28 cap, 2 Refill(s), Pharmacy: [facility], 194, cm, 10/04/22 7:36:00 EST, Height/Length Dosing, 137.55, kg, 10/04/22 7:36:00 EST, Weight Dosing Start Date: 12/23/22 Status: Ordered Vitamin B12 1000 mcg oral tablet 1,000 mcg = 1 tab, Oral, Daily, # 30 tab, 2 Refill(s), Pharmacy: [facility] Start Date: 09/01/22 Stop Date: 11/30/22 Status: Ordered Vitamin D3 2000 intl units oral tablet 50 mcg = 1 tab, Oral, Daily, # 28 tab, 2 Refill(s), Pharmacy: [facility], 194, cm, 10/04/22 7:36:00 EST, Height/Length Dosing, 137.55, kg, 10/04/22 7:36:00 EST, Weight Dosing Start Date: 12/23/22 Status: Ordered Vyvanse 40 mg oral capsule 40 mg = 1 cap, Oral, every morning, new dose, # 30 cap, 0 Refill(s), Pharmacy: [id number], 188.59, cm, 10/25/23 9:01:00 EST, Height, [...] Physician Member Role: Informed Provider Address: Address: [address] Care Team Related Persons Name: LEIF GARVEY
--- OUTSIDE RECORDS SUMMARY | 2024-09-02 16:13 | XMS_ITS | Encounter Summary ---
Author Organization Formerly [facility] Address [facility] [place] [address] Care Team Providers Care Music Arranger Name Role Phone Lynne Barrett MD Primary Care Provider [phone] Reason for Visit * Consultation (Routine) - Specialty Diagnoses / Procedures Referred By Abrahan t Referred To Contact Maxillofacial Surgery Diagnoses please evaluate the left lateral past border of tongue, intratotal photos taken Mayco Sahu Jr., [facility] [address] [place] [address] [facility] [address] [place] [id number] Referral ID Status Reason Start Date Expiration Date V isits Requested Visits Authorized [id number] 01/11/2019 01/11/2020 1 1 Encounter Details Date Type Department Care Team (Late st Contact Info) Description 03/07/2019 3:30 PM EDT Office Visit [place] [address] Terry Lassiter MD [facility] [place] [address] Tongue lesion Social History Tobacco Use Types Packs/Day Years [...] Sign Reading Time Taken Comments Blood Pressure - - Pulse - - Temperature - - Respiratory Rate - - Oxygen Saturation - - Inhaled Oxygen Concentration - - Weight 161 kg (355 lb) 03/07/2019 3:58 PM EDT Height 193 cm (6' 4) 03/07/2019 3:58 PM EDT Body Mass Index 43.21 03/07/2019 3:58 PM EDT documented in this encounter Progress Notes * Terry Lassiter MD - 03/07/2019 3:30 PM EDT Images from the original note were not included. Oral & Maxillofacial Surgery Lesion Consultation Kwaku Blanton is 38 y.o. male who was sent to us for consultation by Dr.Ronald Guajardo regardinglesion on left lateral aspect A history of the patient 's symptoms and physical signs was reviewed during the interview with attention to initial findings and progression, pain, bleeding, swelling, lumps, bumps, drainage, dysphagia, odynophagia, paresthesia, dysarthria and systemic effects. Documents including medical and dental office notes, radiographs or biopsy findings were also notedwhen available. Pertinent notations from today's history: ?? Initially spotted by the dentist during dental cleaning January 09, 2019 ?? Routinely sees the same dentist and hygienist every 6 months ?? Lesion is located on the left lateral aspect of tongue ?? Denies bleeding or discharge ?? Denies removable devices ?? White patch has remained the same size ?? Denies numbness or tingling ?? Denies chewing or swallowing difficulties ?? Quit drinking alcohol-- 15 beers a night 10 years ago ?? Lost 120lbs since August 2018 No past medical history on file. No past surgical history on file. Social History Socioeconomic History ??? Marital status: Single Spouse name: Not on file ??? Number of children: Not on file ??? Years of education: Not on file ??? Highest education level: Not on file Occupational History ??? Not on file Social Needs ??? Financial resource strain: Not on file ??? Food insecurity: Worry: Not on file Inability: Not on file ??? Transportation needs: Medical: Not on file Non-medical: Not on file Tobacco Use ??? Smoking status: Former Smoker ??? Smokeless tobacco: Never Used ??? Tobacco comment: only smokes for 6 months -15 years ago Substance and Sexual Activity ??? Alcohol use: Not on file ??? Drug use: Not on file ??? Sexual activity: Not on file Lifestyle ??? Physical activity: Days per week: Not on file Minutes per session: Not on file ??? Stress: Not on file Relationships ??? Social connections: Talks on phone: Not on file Gets together: Not on file Attends oriental orthodox service: Not on file Active member of club or organization: Not on file Attends meetings of clubs or organizations: Not on file Relationship status: Not on file ??? Intimate partner violence: Fear of current or ex partner: Not on file Emotionally abused: Not on file Physically abused: Not on file Forced sexual activity: Not on file Other Topics Concern ??? Not on file Social History Narrative ??? Not on file Brief Review of Systems conducted with comments regarding pulmonary, neurologic, cardiac, gastrointestinal, hepatic, renal and dermatological symptoms negative except as noted above. ??? oxybutynin (DITROPAN-XL) 10 mg Tablet Extended Rel 24 hr ??? lurasidone (LATUDA) 40 mg Tablet ??? acetaminophen (TYLENOL) 500 mg Tablet ??? nystatin (MYCOSTATIN) Powder ??? amLODIPine (NORVASC) 10 mg Tablet ??? busPIRone (BUSPAR) 15 mg Tablet ??? citalopram (CELEXA) 20 mg Tablet ??? cloNIDine HCl (CATAPRES) 0.3 mg Tablet ??? furosemide (LASIX) 40 mg Tablet ??? docusate sodium (COLACE) 100 mg Capsule ??? senna (SENOKOT) 8.6 mg Tablet No Known Allergies Physical Exam: Extra-oral exam was conducted including facial symmetry, sensory and motor function, alertness and appropriateness to questions and requests, range of jaw motion, TMJ function and skeletal architecture. Neck exam was conducted with attention to normal musculature, vasculature and potential adenopathy. Intra-oral exam included evaluation of tongue mobility and surface consistency - both dorsal and ventral, floor of mouth, buccal and labial mucosa, maxillary and mandibular vestibules, hard and soft palate and oropharynx as well as dentition and alveolar process, dental arches and occlusion as wellas salivary flow. The exam also included bimanual palpation of the floor of the mouth with attention to the submandibular triangle. Notable findings on this examination included: ?? Orophayrnx unremarkable ?? Weill restored dent ?? Buccal mucosa and hard palate unremarkable ?? Anterior FOM WNL ?? 4 mm papillomatous- no ulceration without induration located on the left posterior ventral aspect of tongue ?? No cervical lymphadenopathy Photograph taken Impression: clinical findings consistent with Papilloma Recommendations and Plan: Excision of lesion to send to pathology. Pt elected to stay and have this performed today while in our clinic Consents signed. Time Statement: Thirty minutes was spent with the patient greater than 20 minutes of which included direct discussion regarding the clinical and radiographic findings where indicated, the potential diagnoses and a review of the natural history as well as treatment alternatives, their benefits and attendant risks. Kwaku was given an opportunity to ask questions and instructed to contact us if further questionsarise following the consultation. Radha Borges CDA, am acting as a scribe for Dr. Lassiter. All work documented was performedby Dr. Lassiter. Terry Borges, performed the above scribed service and agree with the accuracy of the note. documented in this encounter Plan of Treatment Not on file documented as of this encounter Visit Diagnoses Diagnosis Tongue lesion Other specified conditions of the tongue documented in this encounter Care Teams Music Arranger Relationship Specialty Start Date End Date Lynne Barrett MD [address] [place] [address] PCP - General Family Medicine 06/02/16 12/25/19 documented as of this encounter
--- OUTSIDE RECORDS SUMMARY | 2024-09-02 16:13 | XMS_ITS | Encounter Summary ---
Author Organization [facility] [place] [address] Care Team Providers Care Administrative Office Assistant Name Role Phone Lynne Barrett MD Primary Care Provider [phone] Reason for Visit * Reason Comments Weight Management Follow-up Encounter Details Date Type Department Care Team (Late st Contact Info) Description 03/15/2019 4:30 PM EDT Office Visit Weight and Wellness at [address] [phone] Reema Izaguirre MD Morbid obesity with BMI of 40.0-44.9, adult; Hyperglycemia Social History Tobacco Use Types Packs/Day Years Used Date Smoking Tobacco: Former Smokeless Tobacco: Never Comments:only smokes for 6 m [facility] -15 years ago Sex and Gender Information Value Date Recorded Sex Assigned at Not on file Gender Identity Not on file Sexual Orientation Not on file documented as of this encounter Last Filed Vital Signs Vital Sign Reading Time Taken Comments Blood Pressure 149/72 03/15/2019 4:31 PM EDT Pulse 51 03/15/2019 4:31 PM EDT Temperature - - Respiratory Rate 16 03/15/2019 4:31 PM EDT Oxygen Saturation 98% 03/15/2019 4:31 PM EDT Inhaled Oxygen Concentration - - Weight 156.3 kg (344 lb 8 oz) 03/15/2019 4:31 PM EDT Height 193 cm (6' 3.98) 03/15/2019 4:31 PM EDT Body Mass Index 41.95 03/15/2019 4:31 PM EDT documented in this encounter Patient Instructions * Patient Instructions* Reema Izaguirre MD - 03/15/2019 4:30 PM EDT Labs today--liver function tests, A1c, lipid panel [facility]MAN to evaluate changes in body content changes at next visit Continue 5-6 sessions of exercise per week Follow up with Dr Izaguirre in 2 months documented in this encounter Progress Notes * Reema Izaguirre MD - 03/15/2019 4:30 PM EDT [facility] Visit Patient Name: Kwaku Blanton Date of : 1980 Age: [address] Lynne Barrett MD Thank you for referring Kwaku Blanton to the [facility] for consultation regarding obesity. CHIEF COMPLAINT: Follow-up for Obesity INTERVAL HISTORY / PROGRESS TOWARD GOALS: [x] I reviewed past / interim records including notes and labs. Kwaku is participating in our Obesity Medicine Pathway, and is here for his 7-month follow up visit. He has been followed by our nurse practitioner, Desirae Nguyen, but is transitioning his care to pr in anticipation of her departure [facility]. He has lost 140 pounds over the last 7 months, and has lost 41 of those pounds in the last 2 months. He was last seen by our dietitian Andie Chaves in August, with a recommendation to track food intake, focus on balanced plate choices and good portion sizes. Labs at initial evaluation were notable for dyslipidemia with a low HDL of 31. An A1c was not obtained at that time. He reports that the secret is to eat right and go to the gym 6 days per week. He and his caregivers report that he is focusing on a high protein diet and that he has essentially cut out all junk foods, and has cut back drastically on his sugar intake. He is only drinking water and unsweetened iced tea. He reports he is not hungry on his current diet, and is not experiencing food cravings (these were initially bothersome, but have since resolved). With regards to exercise, he is exercising 1.5 - 2 hours per day, doing weights, sauna, treadmill, and playing raqetball. He is training with a friend, who helps him stay accountable and motivated. He goes to the gym 5-6 days per week. He denies fevers, chills, night sweats, easy bleeding or bruising, abdominal pain, nausea or vomiting. 24 hour diet recall: - Breakfast: Apple - Lunch: Taco salad with beef and cheese - Dinner: Pork, brown rice, corn - Snacks: Apple, occasional string cheese - Drinks: 2 cups of coffee with milk and a little sugar, water - Dessert: None PREVIOUS LABS: Lab [...] Date AST 54 09/07/2018 ALT 54 09/07/2018 [facility] Followup Responses 08/31/2018 [facility] - Readiness [...] findings Constitutional: Normal appetite and good energy. GI: No nausea,vomiting, abdominal pain VITAL SIGNS: Vitals: 03/15/19 1631 BP: 149/72 Pulse: 51 Resp: 16 SpO2: 98% Weight: (!) 156.3 kg (344 lb 8 oz) Height: 193 cm (6' 3.98) Body mass index is 41.95 kg/m??. Last 5 weight values: Wt Readings from Last 5 Encounters: 03/15/19 (!) 156.3 kg (344 lb 8 oz) 03/07/19 (!) 161 kg (355 lb) 01/03/19 (!) 174.8 kg (385 lb 4.8 oz) 11/08/18 (!) 194.8 kg (429 lb 8 oz) 10/11/18 (!) 204 kg (449 lb 12.8 oz) PHYSICAL EXAM: Gen: Alert and active, NAD. +central adiposapthy, accompanied by his caregivers Skin: Warm, pink, no rashes HEENT: NC/AT, EOMI, clear conjunctiva, MMM Neck: supple and thick Neuro: Alert and oriented Psych: NL affect today SUMMARY OF VISIT [...] [facility], and is here for his 7-month follow up visit. He has lost 140 pounds in the last 7 months through radical diet change and participation in daily, high-intensity exercise. He is very pleased by these changes, and reports that he hopes to reach a weight of about 240 pounds. He declines a referral to our dietitian at this time, but reports he would consider it in the future, if weight loss slows. ?? Goal setting: ?? Continue healthy diet changes, focusing on high-protein options, avoidance of calorie-containingbeverages, avoidance of sweets and appropriate portion sizes ?? Continue 5+ hours of moderate exercise weekly ?? Labs today: Lipid panel, LFTs, A1c Dyslipidemia: ?? Nutrition and activity recommendations to promote healthy weight F/u in: 2 months with JERMAN evaluation + MD visit at that time I spent a total of 20 minutes with the patient 18 minutes of which were spent in [id number] discussion/counseling re obesity, nutrition and activity as well as obesity related co-morbidities documented in this encounter Miscellaneous Notes * Addendum Note - Elif Ramires - 03/15/2019 4:30 PM EDTAddended by: ELIF RAMIRES on: 03/15/2019 05:42 PM Modules accepted: Orders documented in this encounter Plan of Treatment Not on file documented as of this encounter Procedures Procedure Name Priority Date/Time Associated Diagnosis Comments LIPID PANEL (REFLEX DIRECT LDL) Routine 03/15/2019 5:25 PM EDT Morbid obesity with BMI of 40.0-44.9, adult documented in this encounter Results * (ABNORMAL) Hepatic Function Panel (05/06/2019 4:14 PM EDT) Protein, Total 8.6(H) 6.1 - 8.0 gm/dL [facility] Albumin 4.9 3.2 - 5.2 gm/dL [facility] Aspartate Aminotransferase 28 0 - 39 unit/L [facility] Alanine Aminotransferase 54 0 - 55 unit/L [facility] Alkaline Phosphatase 83 40 - 130 unit/L [facility] Bilirubin, Total 0.5 0.2 - 1.3 mg/dL [facility] Bilirubin, Direct 0.1 0.0 - 0.3 mg/dL [facility] Blood specimen (specimen) 05/06/2019 4:14 PM EDT 05/06/2019 6:18 PM EDT Narrative Resulting Agency Comment Spec In Lab Reema Izaguirre MD CHEMISTRY ORDERABLES [facility] [place] [address] * Hemoglobin A1c (05/06/2019 4:14 PM EDT) Hemoglobin A1c 5.5 4.3 - 5.6 % [facility] Comment: Reference Range: 4.3 - [...] Mellitus, Diabetes Care 2013; 36: Suppl. 1, P67-24 Estimated Average Glucose 112 mg/dL [facility] Comment: eAG equivalents for HbA1c [...] into estimated average glucose values. ??Diabetes Care 2008:31(8):2946-7145. Blood specimen (specimen) 05/06/2019 4:14 PM EDT 05/06/2019 6:18 PM EDT Narrative Resulting Agency Comment Spec In Lab Reema Izaguirre MD CHEMISTRY ORDERABLES [facility] [place] [address] * Lipid Panel (03/15/2019 5:25 PM EDT) Cholesterol, Total 144 mg/dL [facility] Comment: Lower Risk: <200 mg/dL Average Risk: 200-239 mg/dL Higher Risk: >al=925 mg/dL Triglyceride 74 mg/dL [facility] Comment: Average Risk/Lower Risk: <150 mg/dL Borderline High Risk: 150-199 mg/dL High Risk: 200-499 mg/dL Very High Risk: >jq=760 mg/dL HDL Cholesterol 40 mg/dL [facility] Comment: Males: ?? Higher Risk: <40 mg/dL Females: ?? HIgher Risk: <50 mg/dL LDL Cholesterol 89 mg/dL [facility] Comment: Lowest Risk: <100 mg/dL Lower Risk: 100-129 mg/dL Borderline High Risk: 130-159 mg/dL High Risk: 160-189 mg/dL Very High Risk: >pu=202 mg/dL Cholesterol/HDL Ratio 3.[address] [facility] Lipid Interpretation See Note [facility] Comment: Lipid management should be guided by a patient? s ASCVD risk, goals and preferences. ACC/AHA Guidelines recommend high intensity statin if clinical ASCVD or LDL greater than or equal to 190 mg/dL. [email or web address]-LVW-[email or web address] Adults aged 40-75 with LDL 70-189 mg/dL should have their 10 year ASCVD risk estimated with the ACC/AHA ASCVD risk ticket chopper assembler http://tools.acc.org/FGDWF-Xydl-Luzqguecq/ Statin should be discussed if risk greater [...] In Lab Reema Izaguirre MD CHEMISTRY ORDERABLES [facility] [place] [address] documented in this encounter Visit Diagnoses Diagnosis Morbid obesity with BMI of 40.0-44.9, adult Morbid obesity Hyperglycemia Other abnormal glucose documented in this encounter Care Teams Administrative Office Assistant Relationship Specialty Start Date End Date Lynne Barrett MD [address] [place] [address] PCP - General Family Medicine 06/02/16 12/25/19 documented as of this encounter
--- OUTSIDE RECORDS SUMMARY | 2024-09-02 16:13 | XMS_ITS | Continuity of Care Document ---
Author Organization [facility] f or Sleep Disorders Address [address] [place] [address] Care Team Providers Care Car Ferrier Name Role Phone Steve Mayo Emily Primary Care Physician [phone] Encounter [facility] [id number] Date(s): 02/21/24 - 02/21/24 [facility] [address] [place] [address] Encounter Diagnosis HAI (obstructive sleep apnea)(Discharge Diagnosis) - 02/21/24 Nocturnal hypoxemia(Discharge Diagnosis) - 02/21/24 Discharge Disposition: Home or Self Care Attending Physician: Layne Moreira NP Allergies, Adverse Reactions, Alerts No Known Medication Allergies Assessment and Plan Extracted from: Title:Clinic - Office Visit Note Author:Layne Palafox i, NP Date:02/21/24 1.??HAI (obstructive sleep a pnea)??G47.33 Actions: COMPLETED - Referral Management, Medical Service: Other, Reason: ADAPT-JESSIKA, severe HAI, new cpap user, start auto cpap 5-15 cm H20, dispense water chamber, lifetime, 99 months,, Start: 02/21/24 ?? 2.??Nocturnal hypoxemia??G47.34 ?? provided greater than??40??minutes in the care of this patient, more than half the time was spent in [id number] counseling. ?? Kwaku Garvey is a pleasant 43 yr old male, accompanied by his hydraulic chair assembler, Vazquez Malin ?? with comorbidities of ? Anxiety, bipolar? schizophrenia, hypertension, morbid obesity, urinary incontinence, venous stasis ulcers, history of lymphedema bilateral lower limbs ? Clinical Data Reviewed: [place] Sleepiness Scale:0/24 ESS 424 (02/21/2024) [place] 3/3 ? Sleep Clinical Timeline:? 06/20/2016 PSG.?? BMI 64.06.?? Snoring, unrefreshing sleep, excessive daytime sleepiness, obesity, hypertension, crowded upper airway anatomy, anxiety and depression with a history of hypertension and schizophrenia.?? Medication included buspirone, clonidine, citalopram, enalapril/HCTZ, Norvasc.?? ESS 21, [place] 3 Sleep efficiency 4% Moderate obstructive sleep apnea, associated with significant nocturnal hypoxemia 1. AHI 27.4/h, RDI 85.7/h, no REM was observed, supine AHI 20/h, 2. 19 consecutive minutes were spent on oxygen saturation less than 88% 3.?? Underestimation of severity due to absence of REM sleep and an adequate time spent asleep during the study ?? 07/28/2016.?? Follow-up with Olivier Moses MD for PSG results.?? Order was placed to start auto CPAP 8 to 18 cm H2O with plan to schedule titration study once patient acclimated to CPAP. ?? 10/25/2023: New sleep consult.?? PSG ordered 1:1, hx of mod HAI, patient interested in??trying CPAP treatment??if he qualifies, accompanied by hydraulic chair assembler Vazquez Malin. significant mental??health??history, prescribed multiple medications, mood stable ? 02/10/2024.?? PSG diagnostic.?? History of HAI with snoring dream enactment behavior BMI 41.32, weight 146.95 kg IMPRESSION: 1.??Severe Obstructive Sleep Apnea, associated with significant nocturnal hypoxemia, sleep fragmentation. 2.??This is potentially an underestimation of severity due to decreased REM sleep. 3.??Overall AHI: 62.5/hr; Overall RDI: 63.1/hr; REM AHI: 25.3/hr; Supine AHI: 64/hr; Right Lateral AHI:58 /hr; Left Lateral AHI: N/A/hr; Prone AHI: N/A/hr. 4.??Mean SpO2: 92% and Mayur SpO2: 68% on Room Air; 88.8 minutes spent with SpO2 less than or equal to 88% on Room Air. 5.??No evidence of Periodic Limb Movement Disorder seen during this study. PLM index: 0.0/hr, PLM arousal index: 0.0/hr. 6.??Abnormal sleep architecture with reduced REM sleep and absent Stage 3 sleep.?? 7.??Significant arrhythmia with sinus pauses and dropped beats.? RECOMMENDATIONS: 1.??Patient should be started on CPAP therapy with mask of choice, heated humidification, and ramp and return to the Sleep Lab for formal titration study. 2.??Correlation of other sleep study findings with patient? s clinical presentation. 3.??With a BMI = 41.32 kg/m?a weight loss program is advised. 4.??Cardiology evaluation. ?? 02/21/2024.?Follow-up for PSG??results.?? Order sent to [facility]? JESSIKA Yu to start??CPAP therapy. ??Auto CPAP??5 to 15 cm H2O. needs cardiology referral for further eval of arrhythmia with sinus pauses and dropped beats.??PCP notified ? Today's Assessment and Plan: -We reviewed sleep study results in detail including apnea hypopnea index, positional data and oxygen data. We reviewed discussion of Obstructive Sleep Apnea, including pathophysiology, associated care home cardiovascular, neurocognitive and overall health effects, and importance of treatment. Treatment options discussed. Extensively reviewed process of starting treatment and commonly encountered problems and ways to find support and troubleshooting problems.?? Given the severity of his HAI the preferred treatment??is CPAP therapy.? I discussed different mask options and the importance of finding the mask that will work for??him??within the first 30 days. I discussed how to adjust humidity for dryness/congestion and that the goal will be to use nightly for??his??total sleep time. I covered insurance compliance requirements and the [facility]'s mask [place] policy.??He??will have a titration study for fine tuning of therapy and to ensure adequate oxygenation on CPAP therapy. I will see??him??back between 31-90 days after starting CPAP and??he??is encouraged to call me sooner if??he??is having any difficulties tolerating CPAP. - plan to order titration study at f/u visit - PCP notified of recommended??cardiology??referral for further evaluation of s ??ignificant arrhythmia with sinus pauses and dropped beats.? Follow up: 2 months or sooner if needed.? Future Appointments Immunizations Given and Recorded Vaccine [...] BID, # 56 tab, 2 Refill(s), Pharmacy: [facility], 194, cm, 10/04/22 7:36:00 EST, Height/Length Dosing, 137.55, kg, 10/04/22 7:36:00 EST, Weight Dosing Start Date: 01/23/23 Stop Date: 04/17/23 Status: Ordered cloNIDine 0.2 mg oral tablet 0.4 mg = 2 tab, Oral, Once, # 180 tab, 0 Refill(s) Start Date: 07/19/23 Status: Ordered cloNIDine 0.3 mg oral tablet See Instructions, TAKE 1 TABLET AT BEDTIME, # 84 tab, 3 Refill(s), [facility], 194, cm, 10/04/22 7:36:00 EST, Height/Length Dosing, 137.55, kg, 10/04/22 7:36:00 EST, Weight Dosing Start Date: 03/13/23 Status: Ordered furosemide 40 mg oral tablet 2 tab, Oral, Daily, # 56 tab, 6 Refill(s), Pharmacy: [facility] [id number], 188.59, cm, 10/25/23 9:01:00 EST, Height, 151.59, kg, 10/25/23 9:04:00 EST, Weight Dosing Start Date: 12/15/23 Status: Ordered lisinopril 20 mg oral tablet 1 tab, Oral, Daily, # 28 tab, 3 Refill(s), Pharmacy: [facility] [address], 188.59, cm, 10/25/23 9:01:00 EST, Height, 146.95, kg, 12/20/23 9:40:00 EDT, Weight Dosing Start Date: 02/08/24 Status: Ordered lurasidone 20 mg oral tablet 20 mg = 1 tab, Oral, every other day, # 30 tab, 0 Refill(s) Start Date: 07/19/23 Status: Ordered Metoprolol Succinate ER 50 mg oral tablet, extended release 1 tab, Oral, Daily, # 28 tab, 3 Refill(s), Pharmacy: [facility] [address], 188.59, cm, 10/25/23 9:01:00 EST, Height, 151.59, kg, 10/25/23 9:04:00 EST, Weight Dosing Start Date: 11/17/23 Status: Ordered oxybutynin 10 mg/24 hr oral tablet, extended release 1 tab, Oral, Daily, # 28 tab, 3 Refill(s), Pharmacy: [facility] [address], 188.59, cm, 10/25/23 9:01:00 EST, Height, 146.95, kg, 12/20/23 9:40:00 EDT, Weight Dosing Start Date: 02/08/24 Status: Ordered PROzac 20 mg oral capsule 20 mg = 1 cap, Oral, Daily, # 28 cap, 2 Refill(s), Pharmacy: [facility] [place] [place], 194, cm, 10/04/22 7:36:00 EST, Height/Length Dosing, 137.55, kg, 10/04/22 7:36:00 EST, Weight Dosing Start Date: 12/23/22 Status: Ordered Vitamin B12 1000 mcg oral tablet 1,000 mcg = 1 tab, Oral, Daily, # 30 tab, 2 Refill(s), Pharmacy: [facility] Start Date: 09/01/22 Stop Date: 11/30/22 Status: Ordered Vitamin D3 2000 intl units oral tablet 50 mcg = 1 tab, Oral, Daily, # 28 tab, 2 Refill(s), Pharmacy: [facility] [place] [place], 194, cm, 10/04/22 7:36:00 EST, Height/Length Dosing, 137.55, kg, 10/04/22 7:36:00 EST, Weight Dosing Start Date: 12/23/22 Status: Ordered Vyvanse 40 mg oral capsule 40 mg = 1 cap, Oral, every morning, new dose, # 30 cap, 0 Refill(s), Pharmacy: [facility], 188.59, cm, 10/25/23 9:01:00 EST, Height, [...] Range]: 1 Peripheral Pulse Rate [60-100 bpm] 79 bp m (02/21/24 12:16 PM) Respiratory Rate [12-24 br/min] 97 br/mi n *HI* (02/21/24 12:16 PM) Blood Pressure [90-140/60-90 mmHg] 134/6 9mmHg (02/21/24 12:16 PM) Mean Arterial Pressure, Cuff [65-140 mmH g] 91 mmHg (02/21/24 12:16 PM) Weight 135.62 kg (02/21/24 12:16 PM) Weight Measured (lbs) 298.991 lb (02/21/24 12:16 PM) Weight Dosing 135.620 kg (02/21/24 12:16 PM) Height 188 cm (02/21/24 12:16 PM) Height/Length Measured (inches) 74.02 in ch (02/21/24 12:16 PM) BSA Measured 2.66 m2 (02/21/24 12:16 PM) Body Mass Index 38.37 kg/m2 (02/21/24 12:16 PM) Social History Social History Type Response Smoking Status Smoking tobacco use: Never tobacco user;Never entered on: 03/28/23 Sex Male Physician Outpatient Note * Layne Moreira LEARNING DISABILITIES SPECIALIST: PERFORM Event Display: Office Clinic Note Physician Authored Date: [id number] KWAKU GARVEY :1980 Age:43 years Sex:Male Visit Date:02/21/2024 Primary Care Physician: Mayo Wilson MD Chief Complaint follow up PSG results History of Present Illness Kwaku Guzman is a??very pleasant 43-year-old male who follows up today for his PSG results.??He is??accompanied by hydraulic chair assembler Vazquez Malin. ?? Today: Patient reports that he slept okay on the night of his sleep study, in fact, once he was connected??to the sleep equipment??he states he was able to rest, relax??and get a relatively good night sleep. ??Since his last office visit he reports no significant changes??in sleep related symptoms.?? He is very willing to try CPAP again. Review of Systems A 10-point REVIEW OF SYSTEM was obtained and reviewed, includes CONSTITUTIONAL, EYES, NOSE, THROAT,RESPIRATORY, HEART, GASTROINTESTINAL, UROLOGIC, MUSCULOSKELETAL, PSYCHIATRY, SKIN systems. Pertinent symptoms are discussed in history, otherwise negative. Physical Exam Vitals & Measurements HR:??79??(Peripheral)?? RR:??97?? BP:??134/69?? HT:??188??cm?? WT:??135.62??kg?? BMI:??38.37?? BSA:??2.66?? GENERAL:??well appearing, appearing??stated??age, no acute distress,??obese??build PSYCHIATRIC: well groomed, fluent speech, good insight, linear thought process, good eye contact,??balanced??affect NEUROLOGIC: alert, oriented, symmetric facial expression Clinic Assessment/Plan 1.??HAI (obstructive sleep apnea)??G47.33 Actions: COMPLETED - Referral Management, Medical Service: Other, Reason: ADAPT-JESSIKA, severe HAI, new cpap user, start auto cpap 5-15 cm H20, dispense water chamber, lifetime, 99 months,, Start: 02/21/24 ?? 2.??Nocturnal hypoxemia??G47.34 ?? provided greater than??40??minutes in the care of this patient, more than half the time was spent in [id number] counseling. ?? Kwaku Garvey is a pleasant 43 yr old male, accompanied by his hydraulic chair assembler, Vazquez Malin ?? with comorbidities of Anxiety, bipolar???schizophrenia, hypertension, morbid obesity, urinary incontinence, venous stasis ulcers, history of lymphedema bilateral lower limbs ? Clinical Data Reviewed: [place] Sleepiness Scale:024 ESS 12/12 (02/21/2024) [place] 3 ? Sleep Clinical Timeline:?? 06/20/2016 PSG.?? BMI 64.06.?? Snoring, unrefreshing sleep, excessive daytime sleepiness, obesity, hypertension, crowded upper airway anatomy, anxiety and depression with a history of hypertension and schizophrenia.?? Medication included buspirone, clonidine, citalopram, enalapril/HCTZ, Norvasc.?? ESS , [place] 33 Sleep efficiency 4% Moderate obstructive sleep apnea, associated with significant nocturnal hypoxemia 1. AHI 27.4/h, RDI 85.7/h, no REM was observed, supine AHI 20/h, 2. 19 consecutive minutes were spent on oxygen saturation less than 88% 3.?? Underestimation of severity due to absence of REM sleep and an adequate time spent asleep during the study ?? 07/28/2016.?? Follow-up with Olivier Moses MD for PSG results.?? Order was placed to start auto CPAP 8 to 18 cm H2O with plan to schedule titration study once patient acclimated to CPAP. ?? 10/25/2023: New sleep consult.?? PSG ordered 1:1, hx of mod HAI, patient interested in??trying CPAP treatment??if he qualifies, accompanied by hydraulic chair assembler Vazquez Malin. significant mental??health??history, prescribed multiple medications, mood stable ?? 02/10/2024.?? PSG diagnostic.?? History of HAI with snoring dream enactment behavior BMI 41.32, weight 146.95 kg IMPRESSION: 1.??Severe Obstructive Sleep Apnea, associated with significant nocturnal hypoxemia, sleep fragmentation. 2.??This is potentially an underestimation of severity due to decreased REM sleep. 3.??Overall AHI: 62.5/hr; Overall RDI: 63.1/hr; REM AHI: 25.3/hr; Supine AHI: 64/hr; Right Lateral AHI:58 /hr; Left Lateral AHI: N/A/hr; Prone AHI: N/A/hr. 4.??Mean SpO2: 92% and Mayur SpO2: 68% on Room Air; 88.8 minutes spent with SpO2 less than or equalto 88% on Room Air. 5.??No evidence of Periodic Limb Movement Disorder seen during this study. PLM index: 0.0/hr, PLM arousal index: 0.0/hr. 6.??Abnormal sleep architecture with reduced REM sleep and absent Stage 3 sleep.?? 7.??Significant arrhythmia with sinus pauses and dropped beats.? RECOMMENDATIONS: 1.??Patient should be started on CPAP therapy with mask of choice, heated humidification, and ramp and return to the Sleep Lab for formal titration study. 2.??Correlation of other sleep study findings with patient???s clinical presentation. 3.??With a BMI = 41.32 kg/m?a weight loss program is advised. 4.??Cardiology evaluation. ?? 02/21/2024.?Follow-up for PSG??results.?? Order sent to [facility]JESSIKA Yu to start??CPAP therapy. ??Auto CPAP??5 to 15 cm H2O. needs cardiology referral for further eval of arrhythmia with sinus pauses and dropped beats.??PCP notified ? Today's Assessment and Plan: -We reviewed sleep study results in detail including apnea hypopnea index, positional data and oxygen data. We reviewed discussion of Obstructive Sleep Apnea, including pathophysiology, associated long term care social worker cardiovascular, neurocognitive and overall health effects, and importance of treatment. Treat ment options discussed. Extensively reviewed process of starting treatment and commonly encounteredproblems and ways to find support and troubleshooting problems.?? Given the severity of his HAI thepreferred treatment??is CPAP therapy.? I discussed different mask options and the importance of finding the mask that will work for??him??within the first 30 days. I discussed how to adjust humidity for dryness/congestion and that the goal will be to use nightly for??his??total sleep time. I covered insurance compliance requirements and the [facility]'s mask [place] policy.??He??will have a titration study for fine tuning of therapy and to ensure adequate oxygenation on CPAP therapy. I will see?? him??back between 31-90 days after starting CPAP and??he??is encouraged to call me sooner if??he??is having any difficulties tolerating CPAP. - plan to order titration study at f/u visit - PCP notified of recommended??cardiology??referral for further evaluation of significant arrhythmia with sinus pauses and dropped beats.? Follow up: 2 months or sooner if needed.? Problem List/Past Medical History Ongoing Annual physical exam Anxiety Binge-eating disorder, severe Caffeine abuse Complete fecal incontinence Cracked skin on feet Foot callus Hypertension Increased frequency of urination Lymphedema of bilateral lower limbs Morbid obesity Obesity Schizophrenia Screening for colon cancer Superficial skin ulcer of lower limb Tachycardia Urinary incontinence Venous stasis ulcer of leg Historical Cellulitis Cellulitis of right lower limb Depressive disorder Eruption Hyperlipidemia Hypersomnia Hypertensive disorder Insomnia Obstructive sleep apnea syndrome Onychogryposis Primary focal hyperhidrosis Severe obesity Snoring Ulcer of lower extremity 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 Unchanged cyanocobalamin (Vitamin B12 1000 mcg oral tablet) 1 tab Oral (given by mouth) Every day Depression, unspecified Duration: 30 Days Unchanged Durable Medical Equipment for Prescription (adult briefs) See instructions Incontinence of urine XL Adult Pull ups ?? Unchanged FLUoxetine (PROzac 20 mg oral capsule) 1 Capsules Oral (given by mouth) Every day Unchanged furosemide (furosemide 40 mg oral tablet) 2 tab Oral (given by mouth) Every day Unchanged lisdexamfetamine (Vyvanse 40 mg oral capsule) 1 Capsules Oral (given by mouth) Every morning Morbid obesity Anxiety new dose ?? Unchanged lisinopril (lisinopril 20 mg oral tablet) 1 tab Oral (given by mouth) Every day Unchanged lurasidone (lurasidone 20 mg oral tablet) 1 tab Oral (given by mouth) Every other day Unchanged metoprolol (Metoprolol Succinate ER 50 mg oral tablet, extended release) 1 tab Oral (given by mouth) Every day Unchanged Other Prescription ([facility] [place] Pres[place]) 28 unknown unit ?? Unchanged oxybutynin (oxybutynin 10 mg/ 24 hr oral tablet, extended release) 1 tab Oral (given by mouth) Every day Allergies No Known Medication Allergies Social History Alcohol Never Electronic Cigarette/Vaping Electronic Cigarette Use: Never. Employment/School disabled Home/Environment Lives with caretakers. Nutrition/Health Caffeine intake amount: 2 caff drinks daily decafe coffee through out the day. Sleeping concerns: No. Other Psychosocial Substance Use Never Tobacco Never tobacco user Tobacco Use:. Never Smokeless Tobacco use:. Immunizations Vaccine Date Status SARS-COV-2 (COVID-19) vaccine, unspecifi 06/02/2023 Recorded SARS-CoV-2 (COVID-19) mRNA-1273 vaccine 01/08/2021 Recorded SARS-CoV-2 (COVID-19) mRNA-1273 vaccine 12/11/2020 Recorded influenza virus vaccine, live 07/08/2020 Recorded tetanus/diphth/pertuss (Tdap) adult/adol 07/08/2020 Recorded influenza virus vaccine, inactivated 05/23/2013 Recorded Electronically Signed on 02/21/2024 17:08 EDT Layne Moreira NP Patient Care team information Care Team Personnel Name: Mayo Wilson MD Position: Physician Member Role: Informed Provider Address: Address: [address] Care Team Related Persons Name: LEIF GARVEY
--- OUTSIDE RECORDS SUMMARY | 2024-09-02 16:13 | XMS_ITS | Encounter Summary ---
Author Organization [facility] [place] [address] Care Team Providers Care Enterprise Application Architect Name Role Phone Unavailable Primary Care Provider Unavailabl e Encounter Details Date Type Department Care Team (Late st Contact Info) Description 12/26/2019 Telephone Weight and Wellness at [facility] [address] [place] [address] Diamond Collins Social History Tobacco Use Types [...]
--- OUTSIDE RECORDS SUMMARY | 2024-09-02 16:13 | XMS_ITS | Continuity of Care Document ---
Author Organization [facility] Address [address] [place] [address] Care Team Providers Care Protective Signal Superintendent Name Role Phone Mayo Wilson Primary Care Physician Encounter [facility] Date(s): 10/25/23 - 10/25/[address] [facility] [place] [place] [facility] [address] [place] [address] Discharge Disposition: Home Allergies, Adverse Reactions, Alerts No Known Medication [...] BID, # 56 tab, 2 Refill(s), Pharmacy: [facility], 194, cm, 10/04/22 7:36:00 EST, Height/Length Dosing, 137.55, kg, 10/04/22 7:36:00 EST, Weight Dosing Start Date: 01/23/23 Stop Date: 04/17/23 Status: Ordered cloNIDine 0.2 mg oral tablet 0.4 mg = 2 tab, Oral, Once, # 180 tab, 0 Refill(s) Start Date: 07/19/23 Status: Ordered cloNIDine 0.3 mg oral tablet See Instructions, TAKE 1 TABLET AT BEDTIME, # 84 tab, 3 Refill(s), Pharmacy: [id number], 194, cm, 10/04/22 7:36:00 EST, Height/Length Dosing, 137.55, kg, 10/04/22 7:36:00 EST, Weight Dosing Start Date: 03/13/23 Status: Ordered furosemide 40 mg oral tablet 2 tab, Oral, Daily, # 56 tab, 0 Refill(s), Pharmacy: [id number], 184.15, cm, 10/31/22 11:05:00 EDT, Height, 146.45, kg, 09/20/23 10:08:00 EST, Weight Dosing Start Date: 09/25/23 Status: Ordered lisinopril 20 mg oral tablet 1 tab, Oral, Daily, # 28 tab, 2 Refill(s), Pharmacy: [id number], 184.15, cm, 10/31/22 11:05:00 EDT, Height, 149.3, kg, 08/16/23 9:37:00 EST, Weight Dosing Start Date: 08/25/23 Status: Ordered lurasidone 20 mg oral tablet 20 mg = 1 tab, Oral, every other day, # 30 tab, 0 Refill(s) Start Date: 07/19/23 Status: Ordered Metoprolol Succinate ER 50 mg oral tablet, extended release 1 tab, Oral, Daily, # 28 tab, 3 Refill(s), Pharmacy: [id number], 184.15, cm, 10/31/22 11:05:00 EDT, Height, 150.2, kg, 07/19/23 10:31:00 EST, Weight Dosing Start Date: 07/28/23 Status: Ordered oxybutynin 10 mg/24 hr oral tablet, extended release 1 tab, Oral, Daily, # 28 tab, 3 Refill(s), Pharmacy: [id number], 184.15, cm, 10/31/22 11:05:00 EDT, Height, 146.45, kg, 09/20/23 10:08:00 EST, Weight Dosing Start Date: 10/20/23 Status: Ordered PROzac 20 mg oral capsule 20 mg = 1 cap, Oral, Daily, # 28 cap, 2 Refill(s), Pharmacy: [facility], 194, cm, 10/04/22 7:36:00 EST, Height/Length Dosing, 137.55, kg, 10/04/22 7:36:00 EST, Weight Dosing Start Date: 12/23/22 Status: Ordered Vitamin B12 1000 mcg oral tablet 1,000 mcg = 1 tab, Oral, Daily, # 30 tab, 2 Refill(s), Pharmacy: [facility] Start Date: 09/01/22 Stop Date: 11/30/22 Status: Ordered Vitamin D3 2000 intl units oral tablet 50 mcg = 1 tab, Oral, Daily, # 28 tab, 2 Refill(s), Pharmacy: [facility], 194, cm, 10/04/22 7:36:00 EST, Height/Length Dosing, 137.55, kg, 10/04/22 7:36:00 EST, Weight Dosing Start Date: 12/23/22 Status: Ordered Vyvanse 70 mg oral capsule 70 mg 1 cap, Oral, every morning, Dr. Carrera Patient, # 30 cap, 0 Refill(s), Pharmacy: [facility], 194, cm, 10/04/22 7:36:00 EST, [...] Physician Member Role: Informed Provider Address: Address: [address] [address]- [place] Care Team Related Persons Name: PATRICK DRIVER Address: Home [address] [place] [phone] Name: LEIF GARVEY Name: SUZIE GARVEY Address: [address] [address] Address: [address] [phone]
--- OUTSIDE RECORDS SUMMARY | 2024-09-02 16:13 | XMS_ITS | Encounter Summary ---
Author Organization [facility] [place] [address] Care Team Providers Care Ophthalmic Surgical Assistant Name Role Phone Lynne Barrett MD Primary Care Provider [phone] Reason for Visit * Reason Comments Weight Management Follow-up Encounter Details Date Type Department Care Team (Late st Contact Info) Description 01/03/2019 3:00 PM EDT Office Visit Weight and Wellness at [address] [phone] Desirae Nguyen APRN Class 3 severe obesity due to excess calories with serious comorbidity and body mass index (BMI) of 45.0 to 49.9 in adult; Morbid obesity Social History Tobacco Use Types Packs/Day Years Used Date Smoking Tobacco: Never Sex and Gender Information Value Date Recorded Sex Assigned at Not on file Gender Identity Not on file Sexual Orientation Not on file documented as of this encounter Last Filed Vital Signs Vital Sign Reading Time Taken Comments Blood Pressure 136/73 01/03/2019 3:02 PM EDT Pulse 52 01/03/2019 3:02 PM EDT Temperature - - Respiratory Rate 16 01/03/2019 3:02 PM EDT Oxygen Saturation 98% 01/03/2019 3:02 PM EDT Inhaled Oxygen Concentration - - Weight 174.8 kg (385 lb 4.8 oz) 01/03/2019 3:02 PM EDT Height 193 cm (6' 3.98) 01/03/2019 3:02 PM EDT Body Mass Index 46.92 01/03/2019 3:02 PM EDT documented in this encounter Progress Notes * Desirae Nguyen APRN - 01/03/2019 3:[address] [facility] Living [facility] Visit Patient Name: Kwaku lBanton Date of : 1980 Age: [address] Lynne Barrett MD / Lynne Barrett Thank you for referring Kwaku Blanton to the [facility] Healthy Living Clinic for consultation regarding [...] 54 09/07/2018 ALT 54 09/07/2018 CHIEF COMPLAINT: Kwaku is here for a follow up for Class III Very Severe Morbid Obesity INTERVAL HISTORY / PROGRESS TOWARD GOALS: [x] I reviewed past / interim records including notes and labs. He states he is eating healthier food, has reduced a lot of the processed carbohydrates, and is exercising, he goes to the Gym 4-5 times a week,weight training aerobic, wts and ropes, raquet ball, spends about 90 minutes at the gym He has more energy and finds it easier to move 24 Hour Recall: Awake: 8 am Breakfast: 8-830 AM, apple then heads to the gym, (2 apples a day) After the ultrasound technologist sonographer: Salad with eggs, 2-3,and veggies, OR a Taco Salad: 1/2 cup meat, tomatoes onions andradishes, drinks water, or unsweetened tea, or coffee Lunch: salad taco or regular, with meat, usually chicken Dinner: spaghetti squash, with meat sauce, or pasta, with chicken Snacks: apple Bedtime: 9 PM Mood: good Sleep: sleeps well Activity: as above [facility] Initial Responses 08/31/2018 URICA - Readiness Score [...] TFEQ-Emotional Eating 33.33 Food Insecurity Score Incomplete [place] Category I Result 0 [place] Category II Result 0 [place] Category III 0 (Negative) [place] Sleep Apnea Total 0 (Low Risk) Schooling [...] No Sister of brother with diabetes Yes 5 REVIEW OF SYSTEMS: see above HPI for additional pertinent +/- findings Constitutional: NL appetite and improved energy. No daytime tiredness. HEENT: No new concerns CV: No chest pain or discomfort RESP: No shortness of breath at rest, cough, or wheezing. GI: No nausea,vomiting, diarrhea, constipation, abdominal pain Musculoskeletal: No new joint complaints Psychiatric: No anxiety, depression Neurological: No headaches VITAL SIGNS: Vitals: 01/03/19 1502 BP: 136/73 Pulse: 52 Resp: 16 SpO2: 98% Weight: (!) 174.8 kg (385 lb 4.8 oz) Height: 193 cm (6' 3.98) Body mass index is 46.92 kg/m??. Last 5 weight values: Wt Readings from Last 5 Encounters: 01/03/19 (!) 174.8 kg (385 lb 4.8 oz) 11/08/18 (!) 194.8 kg (429 lb 8 oz) 10/11/18 (!) 204 kg (449 lb 12.8 oz) 09/12/18 (!) 215 kg (474 lb) 08/31/18 (!) 219.5 kg (484 lb) PHYSICAL EXAM: Gen: Alert and active, NAD. + central adiposapthy Skin: Warm, pink, no rashes, no skin breakdown HEENT: NC/AT, EOMI, clear conjunctiva, Neuro: Alert and oriented Extremities: No joint swelling or tenderness Psych: NL affect today SUMMARY OF VISIT AND RECOMMENDATIONS: Kwaku Blanton was seen in follow up today and an updated medical, diet and activity review was completed. Additional goals were set for changes in health habits (see below) as was a plan for evaluation and treatment of obesity related co-morbidities. Kwaku has lost approximately 99 pounds since August 2018. This is 20.5% of his TBW using diet and exercise. We had a discussion about proteinand enough protein, and a protein source sheet was provided to the patient. We discussed what is the right weight for Kwaku as he continues to lose, we talked about having enough energy and stamina, as his weight loss continues and not to get fixated on a number Medical issues and plan: Class II Very Severe Morbid Obesity: ?? Medical Management: The patient is currently being managed medically at the [facility]. ?? Goal setting: increase protein, have protein at each meal, continue with healthy eating and exercise ?? Follow-up: In 2 months, needs a JERMAN, and then will need a follow up with the RD ?? Fasting Labs ordered to assess co-morbidities: Labs will be due in January ?? Labs/Tests ordered today: F/u in: 2 month I spent a total of 30 minutes with the patient 20 minutes of which were spent in [id number] discussion/counseling re obesity, nutrition and activity as well as obesity related co-morbidities documented in this encounter Plan of Treatment Not on file documented as of this encounter Visit Diagnoses Diagnosis Class 3 severe obesity due to excess calories with serious comorbidity and body mass index (BMI) of 45.0 to 49.9 in adult Morbid obesity documented in this encounter Care Teams Ophthalmic Surgical Assistant Relationship Specialty Start Date End Date Lynne Barrett MD [address] [place] [address] PCP - General Family Medicine 06/02/16 12/25/19 documented as of this encounter
--- OUTSIDE RECORDS SUMMARY | 2024-09-02 16:13 | XMS_ITS | Encounter Summary ---
Author Organization [facility] Address [facility] [place] [address] Care Team Providers Care Dismantler Name Role Phone Lynne Barrett MD Primary Care Provider [phone] Encounter Details Date Type Department Care Team (Late st Contact Info) Description 09/12/2018 4:30 PM EST Office Visit Weight and Wellness at [facility] [address] [place] [address] [facility] [place] [address] Adult BMI 50.0-59.9 kg/sq m Social History Tobacco Use Types Packs/Day Years [...] - Inhaled Oxygen Concentration - - Weight 215 kg (474 lb) 09/12/2018 3:00 PM EST Height 193 cm (6' 3.98) 09/12/2018 3:00 PM EST Body Mass Index 57.72 09/12/2018 3:00 PM EST documented in this encounter Patient Instructions * Patient Instructions* Andie Parsons RD - 09/12/2018 4:30 PM EST Nutrition Goals: 1. Try writing down your foods as you have been doing in a notebook (record the time, what foods, about how much - measure if needed). If it's helpful to you, can write down the reason for eating or hunger scale (don't have to) 2. Keep closer track of your water or seltzer - aim for 60 ounces total, but for now, collect some more information about how much you're currently getting. 3. Continue to notice how you're feeling (do clothes fit differently? Does it feel any different moving around? Energy levels?) 4. Use the balanced plate when thinking about which food groups to choose and how much (aim for protein + grain at breakfast, protein+ veggies and (grain )at lunch, and protein + veggie (+grain) atdinner. Suggested portions on planning sheet provided (4-6 oz meat, 1 cup grain, 2 cups veggies) Thank you, Andie A notebook that patients have enjoyed in the past: Search on [employer] Food Diary: Food Journal / Log / Diet Armature Bander with Calorie Counter ( Softback * 100 Spacious Daily Record Pages & More * Carnival ) (Food Journals for Weight Loss or Allergies) Paperback - April 29, 2016 documented in this encounter Progress Notes * Andie Parsons RD - 09/12/2018 4:30 PM EST Nutrition Intervention for Weight Management Initial RD visit with GEOFF Vazquez 1980 Assessment/Nutrition Diagnosis: Pt at increased nutritional risk related to excessive calorie intake and sub optimal physical activity resulting in overweight/obesity as evidenced by BMI and diet recall Food Trackers: Yes, writing down on the sheets: time, where we were and what had, hunger. Activity: Aiming to exercise an hour a day - either at the gym or at home on equipment available. Family often goes with him Weight Today: Vitals 09/12/2018 08/31/2018 Height (Azerbaijani) 6' 3.984 6' 4 Height (Metric) 193 cm 193 cm Weight (Azerbaijani) 474 lbs 484 lbs Weight (Metric) 215.005 kg 219.541 kg BODY MASS INDEX 57.72 kg/m2 58.91 kg/m2 10# weight loss in 2 weeks Weight Loss History: Has not attempted to change his eating habits in the past Appetite/Hunger: Not feeling really hungry at any point throughout the day - has been writing down hunger scale on the [facility] tracking sheets. Sometimes snacking because would like food, but choosing healthy options (see below) Typical Dietary Intake: B: from a package oatmeal (sometimes honey and cinnamon) and 2 eggs (hungry) L: 3 eggs and chicken thighs / another day was rice, tomato, chicken D: 1 cup egg noodles S: apple and hot cocoa, sometimes 2 cups popcorn Typical Beverages: Diet snapple - maybe once a week. No more sodas- does not miss them Getting maybe 48 total Interview: Attributes recent weight loss to the gym, eating well- lots of veggies, cottage cheese, oatmeal Will do a taco salad at [employer] or something- about once a week. In general, breakfast, lunch, and dinner, an apple and hot chocolate for snacks, 2 cups of popcorn some nights Kwaku feels that this new healthy eating pattern is sustainable- finds it enjoyable, and is supported by his foster family. Is there any reason this way of eating might stop? No. Suggest that Kwaku find other ways to evaluate his success with healthy behaviors besides just looking at the number on the scale. For example, he has already noticed that it is easier to put his shoes on. Barriers to Change: None identified at this time Nutrition Goals: 1. Try writing down your foods as you have been doing in a notebook (record the time, what foods, about how much - measure if needed). If it's helpful to you, can write down the reason for eating or hunger scale (don't have to) 2. Keep closer track of your water or seltzer - aim for 60 ounces total, but for now, collect some more information about how much you're currently getting. 3. Continue to notice how you're feeling (do clothes fit differently? Does it feel any different moving around? Energy levels?) 4. Use the balanced plate when thinking about which food groups to choose and how much (aim for protein + grain at breakfast, protein+ veggies and (grain )at lunch, and protein + veggie (+grain) atdinner. Suggested portions on planning sheet provided (4-6 oz meat, 1 cup grain, 2 cups veggies) Assessing Calorie Goals at this time? No. Discussed basic portion guidelines Monitor/Evaluate: Will follow up as determined by provider and patient Aim for 5-10% weight loss from ABW x 3-6 months from initial visit Thank you 45 minutes were spent today in face to face contact Andie Parsons RD LD documented in this encounter Plan of Treatment Not on file documented as of this encounter Visit Diagnoses Diagnosis Adult BMI 50.0-59.9 kg/sq m Body Mass Index 50.0-59.9, adult documented in this encounter Care Teams Dismantler Relationship Specialty Start Date End Date Lynne Barrett MD [address] [place] [id number] PCP - General Family Medicine 06/02/16 12/25/19 documented as of this encounter
--- OUTSIDE RECORDS SUMMARY | 2024-09-02 16:13 | XMS_ITS | Encounter Summary ---
Author Organization Former[facility], [facility] [place] [address] Care Team Providers Care Envelope Sealer Name Role Phone Lynne Barrett MD Primary Care Provider [phone] Encounter Details Date Type Department Care Team (Late st Contact Info) Description 12/12/2019 Telephone Weight and Wellness at [facility] [address] [place] [phone] Prachi Ballard Social History Tobacco Use Types Packs/Day Years [...] on filedocumented in this encounter Care Teams Envelope Sealer Relationship Specialty Start Date End Date Lynne Barrett MD [address] [place] [address] PCP - General Family Medicine 06/02/16 12/25/19 documented as of this encounter
--- OUTSIDE RECORDS SUMMARY | 2024-09-02 16:13 | XMS_ITS | Encounter Summary ---
Author Organization [facility] [place] [address] Care Team Providers Care Business Planning Analyst Name Role Phone Lynne Barrett MD Primary Care Provider [phone] Reason for Visit * Reason Comments Weight Management Follow-up Encounter Details Date Type Department Care Team (Late st Contact Info) Description 10/11/2018 3:30 PM EST Office Visit Weight and Wellness at [address] [phone] Desirae Nguyen APRN Adult BMI 50.0-59.9 kg/sq m Social History Tobacco Use Types Packs/Day Years Used Date Smoking Tobacco: Never Sex and Gender Information Value Date Recorded Sex Assigned at Not on file Gender Identity Not on file Sexual Orientation Not on file documented as of this encounter Last Filed Vital Signs Vital Sign Reading Time Taken Comments Blood Pressure 146/76 10/11/2018 3:23 PM EST Pulse 69 10/11/2018 3:23 PM EST Temperature - - Respiratory Rate 18 10/11/2018 3:23 PM EST Oxygen Saturation 99% 10/11/2018 3:23 PM EST Inhaled Oxygen Concentration - - Weight 204 kg (449 lb 12.8 oz) 10/11/2018 3:23 P M EST Height 193 cm (6' 3.98) 10/11/2018 3:23 PM EST Body Mass Index 54.77 10/11/2018 3:23 PM EST documented in this encounter Progress Notes * Desirae Nguyen APRN - 10/11/2018 3:30 PM EST [facility] Living Clinic Visit Patient Name: Kwaku Blanton Date of : 1980 Age: [address] Lynne Barrett MD / No ref. provider found Thank you for referring Kwaku Blanton to the [facility] Healthy Living Clinic for consultation [...] 54 09/07/2018 ALT 54 09/07/2018 CHIEF COMPLAINT: Follow-up for Obesity INTERVAL HISTORY / PROGRESS TOWARD GOALS: [x] I reviewed past / interim records including notes and labs. Going to the gym 6 days a week, walking, weights, punching bag, playing racquet ball Drinking a lot of water Coffee when he works out Sometimes a hot chocolate Switched to ice tea, unsweetened ice tea Has added eggs, more vegetables, and fruit, no snack foods, or sugary drinks, no cereal, eating zucchini noodles, spaghetti squash, and taco salads, feels satisfied with food choices, and is not hungry Feels well Clothes are fitting better 24 hour recall: From 08/31/2017 8 am breakfast: oatmeal: honey cinamon, , [...] side Watches TV: may snack on popcorn [facility] Followup Responses 08/31/2018 URICA - Readiness Score [...] pertinent +/- findings Constitutional: NL appetite and better energy. No daytime tiredness. HEENT: No changes in vision. No ear pain, rhinorrhea / congestion, sore throat. CV: No chest pain or discomfort, no palpitations. No orthopnea, PND. less LE edema. RESP: No shortness of breath at rest, cough, or wheezing. GI: No nausea,vomiting, diarrhea, constipation, abdominal pain Musculoskeletal: No joint swelling. No immobility. Psychiatric: No anxiety, depression Neurological: No headaches VITAL SIGNS: Vitals: 10/11/18 1523 BP: 146/76 Pulse: 69 Resp: 18 SpO2: 99% Weight: (!) 204 kg (449 lb 12.8 oz) Height: 193 cm (6' 3.98) Body mass index is 54.77 kg/m??. Last 5 weight values: Wt Readings from Last 5 Encounters: 10/11/18 (!) 204 kg (449 lb 12.8 [...] of obesity related co-morbidities. Kwaku has lost 35 pounds since August 31, 2018, this is 7.23% of his TBW. He has made substantial changes to his nutrition with the help of his car taker, he is very happy with his weight loss. He Has increased his activity to 6 days a week, and it includes a variety of activities from aerobics, racquet sports, and boxing. Medical issues and plan: Class III Very Severe Morbid Obesity: ?? Medical Management: The patient is currently being managed medically at the [facility]. ?? Goal setting: continue with tracking, and goals provided by JOE, continue with exercise, and follow up in 4 weeks with me. ?? Follow-up: 4 weeks ?? Fasting Labs ordered to assess co-morbidities: none at this time ?? JERMAN if he continues to lose weight at an excelerated rate to monitor muscle mass . Labs/Tests ordered today: none F/u in: 1 months I spent a total of 30 minutes with the patient 20 minutes of which were spent in [id number] discussion/counseling re obesity, nutrition and activity as well as obesity related co-morbidities documented in this encounter Plan of Treatment Not on file documented as of this encounter Visit Diagnoses Diagnosis Adult BMI 50.0-59.9 kg/sq m Body Mass Index 50.0-59.9, adult documented in this encounter Care Teams Business Planning Analyst Relationship Specialty Start Date End Date Lynne Barrett MD [address] [place] [address] PCP - General Family Medicine 06/02/16 12/25/19 documented as of this encounter
--- OUTSIDE RECORDS SUMMARY | 2024-09-02 16:14 | XMS_ITS | Encounter Summary ---
Author Organization [facility] [place] [address] Care Team Providers Care Lockstitch Tunnel Elastic Operator Name Role Phone Lynne Barrett MD Primary Care Provider [phone] Encounter Details Date Type Department Care Team (Late st Contact Info) Description 07/19/2016 Telephone Wound Care at [facility] [place] [address] Emily Mcpherson LPN Social History Tobacco Use Types Packs/Day Years Used Date Smoking Tobacco: Never Sex and Gender Information Value Date Recorded Sex Assigned at Not on file Gender Identity Not on file Sexual Orientation Not on file documented as of this encounter Miscellaneous Notes * Telephone Encounter - Emily Mcpherson LPN - 07/19/2016 3:45 PM EST Wound care nurse calls and requests that we decrease the frequency of patient's visits to every-other week, since it's such a long drive. The [facility]NA can do the dressing changes on the Wednesdays that hedoesn't come here. documented in this encounter Plan of Treatment Not on file documented as of this encounter Visit Diagnoses Not on filedocumented in this encounter Care Teams Lockstitch Tunnel Elastic Operator Relationship Specialty Start Date End Date Lynne Barrett MD [address] [place] [address] PCP - General Family Medicine 06/02/16 12/25/19 documented as of this encounter
--- OUTSIDE RECORDS SUMMARY | 2024-09-02 16:14 | XMS_ITS | Encounter Summary ---
Author Organization [facility] Address [facility] [place] [address] Care Team Providers Care Hob Grinder Name Role Phone Lynne Barrett MD Primary Care Provider [phone] Encounter Details Date Type Department Care Team (Latest Contact Info) Description 06/29/2016 1:30 PM EST - 06/29/2016 11:59 PM EST Hospital Encounter [place] [id number] Bobby Walker [place] Ulcers of both lower legs, limited to breakdown of skin; Lymphedema of both lower extremities Discharge Disposition: Home Social History Tobacco Use Types Packs/Day Years Used Date Smoking Tobacco: Never Sex and Gender Information Value Date Recorded Sex Assigned at Not on file Gender Identity Not on file Sexual Orientation Not on file documented as of this encounter Medications at Time of Discharge Medication Sig Dispensed Refills Start Date End Date amLODIPine (NORVASC) 10 mg Tablet Take 10 mg by mouth daily. citalopram (CELEXA) 20 mg Tablet Take 20 mg by mouth daily. cloNIDine HCl (CATAPRES) 0.3 mg Tablet Take 0.3 mg by mouth 2 times daily. furosemide (LASIX) 40 mg Tablet Take 40 mg by mouth daily. docusate sodium (COLACE) 100 mg Capsule Take 200 mg by mouth daily as needed (take 2 capsules once daily as needed (total of 200 mg)). senna (SENOKOT) 8.6 mg Tablet Take 1 tablet by mouth daily. busPIRone (BUSPAR) 15 mg Tablet Take 45 mg by mouth 2 times daily. Take(3) 15 mg tabs by mouth twice daily 09/23/2019 busPIRone (BUSPAR) 15 mg Tablet Take 15 mg by mouth 3 times daily. 08/03/2016 nystatin (MYCOSTATIN) 100,000 unit/mL Suspension Take 500,000 Units by mouth 4 times daily. Reported on 08/03/2016 08/03/2016 acetaminophen (TYLENOL) [address] 120 mg rectally every 4 hours as needed for Fever. 08/03/2016 documented as of this encounter Plan of Treatment Not on file documented as of this encounter Procedures Procedure Name Priority Date/Time Associated Diagnosis Comments DINO, LEGS, MULTIPLE LEVELS Routine 06/29/2016 1:32 PM EST Ulcers of both lower legs, limited to breakdown of skin Lymphedema of both lower extremities documented in this encounter Results * DINO, legs, multiple levels (06/29/2016 1:32 PM EST) VB Text Report Department: Vascular Surgery Lab Patient: [id number] (KWAKU GARVEY) CPT: 00432 ICD10: L97.921;I89.0;L 97.911 Referring Physician: WING RUSSELL ?? Indications: 510 lbs male with chronic ulcers and lymphedema. ??Needs compression Diabetes mellitus: ICD10 Diagnosis Code: L97.921, I89.0, L97.911 Findings: Right ?Pressure (mm Hg) ?? DINO ??Waveform ?? Brachial Artery ?190 ? Dorsalis Pedis (Ankle) Artery ?175 ? 0.92 ??Triphasic ?? Posterior Tibial (Ankle) Artery ??185 ? 0.97 ??Triphasic ?? Left ? Pressure (mm Hg) ?? DINO ??Waveform ? Brachial Artery ?190 ? Dorsalis Pedis (Ankle) Artery ?169 ? 0.89 ??Triphasic ? Posterior Tibial (Ankle) Artery ??170 ? 0.89 ??Bi-Triphasic ?? Interpretation: RIGHT: No significant lower extremity arterial occlusive disease at rest. LEFT: Mild lower extremity arterial occlusive disease. Comparison: ??No previous study in our vascular lab database for comparison. Electronically Signed by: AKILAH FLOYD M.D. on 2016-06-29 03:30:47 PM [facility] VB Text Report End of Report [facility] 06/29/2016 1:32 PM EST Wing Russell MD VASCULAR ORDERABLES [facility] documented in this encounter Visit Diagnoses Diagnosis Ulcers of both lower legs, limited to breakdown of skin Lymphedema of both lower extremities documented in this encounter Care Teams Hob Grinder Relationship Specialty Start Date End Date Lynne Barrett MD [address] [place] [address] PCP - General Family Medicine 06/02/16 12/25/19 documented as of this encounter
--- OUTSIDE RECORDS SUMMARY | 2024-09-02 16:14 | XMS_ITS | Encounter Summary ---
[facility] [place] [address] Care Team Providers Care Scanning Manager Name Role Phone Lynne Barrett MD Primary Care Provider [phone] Reason for Visit * Reason Comments Wound Care profores Encounter Details Date Type Department Care Team (Latest Contact Info) Description 07/13/2016 4:00 PM EST Procedure [place] [id number] Sagrario Bernardo, RN Lymphedema of both lower extremities; Venous stasis ulcers of both lower extremities Social History Tobacco Use Types Packs/Day Years Used Date Smoking Tobacco: Never Sex and Gender Information Value Date Recorded Sex Assigned at Not on file Gender Identity Not on file Sexual Orientation Not on file documented as of this encounter Last Filed Vital Signs Vital Sign Reading Time Taken Comments Blood Pressure 150/86 07/13/2016 4:09 PM EST Pulse 93 07/13/2016 4:09 PM EST Temperature 36.8 ??C (98.2 ??F) 07/13/2016 4:09 PM ES T Respiratory Rate - - Oxygen Saturation 98% 07/13/2016 4:09 PM EST Inhaled Oxygen Concentration - - Weight - - Height - - Body Mass Index - - documented in this encounter Patient Instructions * Patient Instructions* Sagrario Wolf RN - 07/13/2016 4:00 PM EST [facility]: Change Profore wraps to BLE on Sundays and as needed due to drainage or if the dressings fall off We have sent an extra roll of webril today in case you need it if the wraps have fallen down. If they have fallen down, when you reapply the wraps, wrap extra webril on the leg up to where the bulging portion of edema is to make the leg a more uniform shape. Profore Wraps 1. Wash legs and wounds with dermal wound cleasner. 2. Place one piece of melgisorb ag to left posterior LE wound, cover with Mepilex foam. Apply Mepilex foam to right posterior LE wou 3. Apply Protective Ointment to intact skin. 4. Profore #1: Wrap the foot in a spiral fashion starting at the base of the toes and contining in a sprial manner up the legs to the knee with a 50% overlap. 5. Profore #2: Again wrap the foot in a spiral fashion starting at the base of the toes and continuing over the heel and up the leg to just below the knee overlapping with a 50% overlap. 6. Profore #3: Apply this bandage from the base of the toes to just below the knee making sure to enclose the heel in a figure of 8 fashion with a 50% stretch and a 50% overlap. 7. Profore #4: Apply the wrap starting at just above the toes working in a circular fashion to justbelow the knee with a 50% overlap and a 50% stretch, making sure to enclose the heel. documented in this encounter Progress Notes * Sagrario Wolf RN - 07/13/2016 4:00 PM EST Images from the original note were not included. [facility] Note HPI: Kwaku Garvey is a 36 y.o. male who returns for follow up. Type of Wound Venous ulcer: Currently using profore VNA: Yes [facility] Pertinent Labs: No results for input(s): HA1C, PREALBUMIN, CRP, SEDRATE in the last 7068 hours. Wound culture: ] Pertinent Tests: DINO's/Tcom/DVT study: VB TEXT REPORT Date Value Ref Range Status 06/29/2016 Final Department: Vascular Surgery Lab Patient: [id number] (KWAKU GARVEY) CPT: 68956 ICD10: L97.921;I89.0;L97.911 Referring Physician: LINDA RUSSELL Indications: 510 lbs male with chronic ulcers and lymphedema. Needs compression Diabetes mellitus: ICD10 Diagnosis Code: L97.921, I89.0, L97.911 Findings: Right Pressure (mm Hg) DINO Waveform Brachial Artery 190 Dorsalis Pedis (Ankle) Artery 175 0.92 Triphasic Posterior Tibial (Ankle) Artery 185 0.97 Triphasic Left Pressure (mm Hg) DINO Waveform Brachial Artery 190 Dorsalis Pedis (Ankle) Artery 169 0.89 Triphasic Posterior Tibial (Ankle) Artery 170 0.89 Bi-Triphasic Interpretation: RIGHT: No significant lower extremity arterial occlusive disease at rest. LEFT: Mild lower extremity arterial occlusive disease. Comparison: No previous study in our vascular lab database for comparison. Electronically Signed by: AKILAH FLOYD M.D. on 2016-06-29 03:30:47 PM 06/29/2016 End of Report Final Xray: No results found. MRI: No results found. Subjective: Patient denies fever, chills, sweats. Denies nausea, vomiting, loose bowels. Appetite is good Taking protein supplements: No Activity/Mobility: Fully ambulatory Current pain level 0/10 Analgesia needed prior to procedure? no Objective: Vitals: Blood pressure 150/86, pulse 93, temperature 36.8 ??C (98.2 ??F), temperature source Oral, SpO2 98 %. Dressing was removed. There was moderate amount of serosanguinous drainage. Wraps appeared to be soaked with urine upon arrival Malodor no Erythema yes to dorsal left foot and toes and lateral left foot Pulses: Dorsalis Pedis: Right:palpable Left: palpable Posterior Tibia: Right: palpable Left: palpable Measurements (cm) Right Left Calf girth 51.2 cm 65.4 cm Ankle girth 29.7 cm 31.1 cm Wound Location Measurements Tunneling/undermining Wound bed [place] wound skin Left posterior LE 0.3 cm X 2 cm x 0.5 cm none 100% red moist tissue Dry scaling dermatitis Right posterior LE 0.8 cm x 1 cm x 0.1 cm none 90% red moist tissue, 10% yellow tissue Dry scaling dermatitis Right posterior LE Left posterior LE Treatment: Analgesia: none administered prior to debridement [x] Order entered and documented on OCT Conservative Sharp Debridement: removing devitalized tissue using a curette and Forceps removing less than 20 cm sq down to and including subcutaneous tissue to reveal healthier tissue. Bleeding: Yes Small amount controlled with Normal Saline rinse Wound cleansed with normal saline Dressings/wraps applied: Mepilex foam to right posterior LE wound. Melgisorb AG to left posterior LE wound, covered with Mepilex foam. Triamcinolone cream applied to BLE areas of stasis dermatitis Profore Wraps applied to BILATERAL LE 1. Profore #1: Was applied by wrapping the foot in a spiral fashion starting at the base of the toeand contining in a sprial manner up the legs to the knee with a 50% overlap. 2. Profore #2: Was applied by wrapping the foot in a spiral fashion starting at the base of the toes and continuing over the heel and up the leg to just below the knee overlapping with a 50% overlap. 3. Profore #3: Was applied by wrapping the base of the toes to just below the knee making sure to enclose the heel in a figure of 8 fashion with a 50% stretch and a 50% overlap. 4. Profore #4: Was applied by starting at just above the toes working in a circular fashion to justbelow the knee with a 50% overlap and a 50% stretch, making sure to enclose the heel. 5. Discussed with patient care instructions of wraps, patient verbalized understanding. Pain Reassessment post treatment (0-10): 0 Assessment: Kwaku Garvey is a 36 y.o. male with Venous ulcer Wound is currently progressing Plan: continue with current plan of care. Unable to measure for Ready Wraps today given that LLE profore wrap had slid down. Modified profore wraps with extra band of webril in hopes to keep the profore wraps in place. Follow up: Return to [facility]aling Center in approximately 1 week. Patient Instructions/Education: Elevate legs when able VNA orders: [facility]: Change Profore wraps to BLE on Sundays and as needed due to drainage or if the dressings fall off We have sent an extra roll of webril today in case you need it if the wraps have fallen down. If they have fallen down, when you reapply the wraps, wrap extra webril on the leg up to where the bulging portion of edema is to make the leg a more uniform shape. Profore Wraps 6. Wash legs and wounds with dermal wound cleasner. 7. Place one piece of melgisorb ag to left posterior LE wound, cover with Mepilex foam. Apply Mepilex foam to right posterior LE wou 8. Apply Protective Ointment to intact skin. 9. Profore #1: Wrap the foot in a spiral fashion starting at the base of the toes and contining in a sprial manner up the legs to the knee with a 50% overlap. 10. Profore #2: Again wrap the foot in a spiral fashion starting at the base of the toes and continuing over the heel and up the leg to just below the knee overlapping with a 50% overlap. 11. Profore #3: Apply this bandage from the base of the toes to just below the knee making sure to enclose the heel in a figure of 8 fashion with a 50% stretch and a 50% overlap. 12. Profore #4: Apply the wrap starting at just above the toes working in a circular fashion to just below the knee with a 50% overlap and a 50% stretch, making sure to enclose the heel. documented in this encounter Plan of Treatment Not on file documented as of this encounter Visit Diagnoses Diagnosis Lymphedema of both lower extremities Venous stasis ulcers of both lower extremities documented in this encounter Administered Medications Inactive Administered Medications - up to 3 most recent administrations Medication Order MAR Action Action Date Dose Rate Site triamcinolone (KENALOG) 0.1 % cream Topical (Top), ONCE, On Mon07/13/16 at 1715, 1 dose Given 07/13/2016 4:45 PM EST documented in this encounter Care Teams Scanning Manager Relationship Specialty Start Date End Date Lynne Barrett MD [address] [place] [address] PCP - General Family Medicine 06/02/16 12/25/19 documented as of this encounter
--- OUTSIDE RECORDS SUMMARY | 2024-09-02 16:14 | XMS_ITS | Encounter Summary ---
Author Organization [facility] [place] [address] Care Team Providers Care College Intern Name Role Phone Lynne Barrett MD Primary Care Provider [phone] Reason for Visit * Reason Comments Wound Care Encounter Details Date Type Department Care Team (Latest Contact Info) Description 09/21/2016 4:00 PM EST Procedure [place] [id number] Lymphedema of both lower extremities; Ulcers of both lower legs, limited to breakdown of skin; Venous stasis ulcers of both lower extremities Social History Tobacco Use Types Packs/Day Years Used Date Smoking Tobacco: Never Sex and Gender Information Value Date Recorded Sex Assigned at Not on file Gender Identity Not on file Sexual Orientation Not on file documented as of this encounter Last Filed Vital Signs Vital Sign Reading Time Taken Comments Blood Pressure 150/70 09/21/2016 3:41 PM EST Pulse 86 09/21/2016 3:41 PM EST Temperature 36.9 ??C (98.5 ??F) 09/21/2016 3:41 PM ES T Respiratory Rate - - Oxygen Saturation 96% 09/21/2016 3:41 PM EST Inhaled Oxygen Concentration - - Weight - - Height - - Body Mass Index - - documented in this encounter Patient Instructions * Patient Instructions* Katerin Duque RN - 09/21/2016 4:00 PM EST Patient Instructions/Education: Elevate your legs daily for 30-60 minutes Put CircAid stockings on when you wake up in morning and remove at night Moisturize your legs with a fragrance free lotion Check legs daily for any breaks in skin or open areas and seek medical care if they occur documented in this encounter Progress Notes * Katerin Duque RN - 09/21/2016 4:00 PM EST Images from the original note were not included. [facility] Progress Note HPI: Kwaku Garvey is a 36 y.o. male who returns for follow up. Type of Wound Venous ulcer: Currently using Juxta-lite VNA: [facility] Pertinent Labs: No results for input(s): HA1C, PREALBUMIN, CRP, SEDRATE in the last 7068 hours. Wound culture: ] Pertinent Tests: DINO's/Tcom/DVT study: VB Text Report Date Value Ref Range Status 06/29/2016 Final Department: Vascular Surgery Lab Patient: [id number] (KWAKU GARVEY) CPT: 93828 ICD10: L97.921;I89.0;L97.911 Referring Physician: LINDA RUSSELL Indications: [...] Denies nausea, vomiting, loose bowels. Appetite is excellent Taking protein supplements: No reports good nutrition Activity/Mobility: Fully ambulatory Current pain level Analgesia needed prior to procedure? no Objective: Vitals: There were no vitals taken for this visit. Dressing was removed. There was no drainage. Malodor no Erythema no Measurements (cm) Right Left Calf girth 51 52.5 Ankle girth 28 27.8 Wound Location Measurements Tunneling/undermining Wound bed [place] wound skin All wounds healed Dry but intact PHOTO RLE LLE Treatment: Analgesia: none administered prior to debridement [] Order entered and documented on OCT Conservative Sharp Debridement: none required Bleeding None Circ Aid compression garments applied to bilat LE Pain Reassessment post treatment (0-10): 0 Assessment: Kwaku Garvey is a 36 y.o. male with Venous ulcer Wound is currently ALL WOUNDS HEALED Plan: Pt has not been seen in Wound Center since , Profore compression wraps were discontinuedseveral days ago, ordered by PCP, and pt fitted for CircAid compression garments. Pt states he is happy with Circ Aids they are comfortable and his caregive Sammy Coronado is errol to apply them daily. He will be discharged form Wound Center and receive care from his PCP Dr Barrett at [facility]. Pt instructed r/t chronicity of leg ulcers and importance of wearing compression garments daily and elevating his legs and keeping skin healthy. Follow up: Pt discharged Return to Wound Healing Center in approximately No follow up pt dischared and will follow up with PCP at [facility]. Patient Instructions/Education: Elevate your legs daily for 30-60 minutes Put CircAid stockings on when you wake up in morning and remove at night Moisturize your legs with a fragrance free lotion Check legs daily for any breaks in skin or open areas and seek medical care if they occur VNA orders: Pt being discharged from [facility] to be followed BY PCP Dr Barrett at [facility] in [facility] Please obtain orders from Dr Barrett documented in this encounter Plan of Treatment Not on file documented as of this encounter Visit Diagnoses Diagnosis Lymphedema of both lower extremities Ulcers of both lower legs, limited to breakdown of skin Venous stasis ulcers of both lower extremities documented in this encounter Care Teams College Intern Relationship Specialty Start Date End Date Lynne Barrett MD [address] [place] [address] PCP - General Family Medicine 06/02/16 12/25/19 documented as of this encounter
--- OUTSIDE RECORDS SUMMARY | 2024-09-02 16:14 | XMS_ITS | Encounter Summary ---
Author Organization [facility] Address [facility] [place] [address] Care Team Providers Care Electrotyper Helper Name Role Phone Lynne Barrett MD Primary Care Provider [phone] Encounter Details Date Type Department Care Team (Late st Contact Info) Description 07/13/2016 4:00 PM EST Office [place] [address] Kathya Jensen, LENA Venous stasis ulcers of both lower extremities; Ulcers of both lower legs, limited to breakdown of skin; Lymphedema of both lower extremities Social History Tobacco Use Types Packs/Day Years Used Date Smoking Tobacco: Never Sex and Gender Information Value Date Recorded Sex Assigned at Not on file Gender Identity Not on file Sexual Orientation Not on file documented as of this encounter Progress Notes * Kathya Jensen APRN - 07/13/2016 4:00 PM EST [facility] Progress Note ?? Reason for visit: Venous ulcer ?? Initial consult date: 06/02/16 ?? HPI: Pt reports they have been well since his last visit. ??He denies fever, chills. He eats meat as a source of protein and is willing to try protein shakes or powder. He states that his profore wraps slid down since the last application. He denies trauma to his LE and feet. He denies pain / itching. ?? Examination: Patient is alert, conversant, comfortable, ambulating. There is erythema and edema over toes 3-5 and the dorsum of the left foot. The area was marked withzachie. ?? Impression: Kwaku Blanton is a 36 y.o. year old male who was seen today for follow-up prior to wound care procedures and treatment. There is new erythema over the dorsum of the left foot / toes. LE do not appear to be infected and there are no constitutional symptoms present. The erythema of the left foot may be related to the profore wraps. Will re-evaluate at the next visit. Please see the procedure note for details. We discussed high protein diet. Plan: 1. Follow up in 1 week 2. Continue current plan of care Kwaku Blanton was seen today along with: Sagrario Wolf RN, CWCN who provided technical wound care procedures after my visit. Please see their note for full detailsof the visit. documented in this encounter Plan of Treatment Not on file documented as of this encounter Visit Diagnoses Diagnosis Venous stasis ulcers of both lower extremities Ulcers of both lower legs, limited to breakdown of skin Lymphedema of both lower extremities documented in this encounter Care Teams Electrotyper Helper Relationship Specialty Start Date End Date Lynne Barrett MD [address] [place] [id number] PCP - General Family Medicine 06/02/16 12/25/19 documented as of this encounter
--- OUTSIDE RECORDS SUMMARY | 2024-09-02 16:14 | XMS_ITS | Encounter Summary ---
[facility] Organization [facility] [place] [address] Care Team Providers Care Complex Care Nurse Practitioner Name Role Phone Lynne Barrett MD Primary Care Provider [phone] Reason for Visit * Reason Comments Wound Care bileteral legs Encounter Details Date Type Department Care Team (Latest Contact Info) Description 06/29/2016 2:30 PM EST Procedure visit [place] [id number] Ulcers of both lower legs, limited to [...] Sign Reading Time Taken Comments Blood Pressure 127/99 06/29/2016 2:48 PM EST 141 /73 Pulse 94 06/29/2016 2:48 PM EST Temperature 37.3 ??C (99.1 ??F) 06/29/2016 2:48 PM ES T Respiratory Rate 18 06/29/2016 2:48 PM EST Oxygen Saturation 95% 06/29/2016 2:48 PM EST Inhaled Oxygen Concentration - - Weight - - Height - - Body Mass Index - - documented in this encounter Patient Instructions * Patient Instructions* Katerin Duque RN - 06/29/2016 2:30 PM EST Elevating your legs above your heart level for 30 minutes three or four times per day can reduce swelling and improve blood flow in the veins which can speed healing of venous ulcers. However, it maynot be practical for some people to elevate their legs several times per day. If possible: ?? Elevate legs 3-4 times a day for at least 30 minutes to one hour ?? For mild discomfort, sit and elevate legs for 30 minutes to one hour, consider taking Tylenol toassist with mild discomfort ?? If you experience any numbness, tingling, pain/discomfort that is not relieved with elevation and over the counter pain medication, call the Wound Clinic ?? If swelling is not relieved with elevation or if pain is severe remove wraps by unwrapping them from below the knee in front, and contact the Wound Clinic. ?? If over the weekend and pain is not relieved after removal of wraps, contact PCP ?? Do not get wraps wet- a cast bag or other plastic bag can be placed over the compression bandageto keep it dry while showering. If the compression bandages get wet, contact the [facility] to have them changed. ?? If you experience any shortness of breath, worsening swelling of thighs, change in urination, please contact the Wound Clinic. Exercises -- Foot and ankle exercises are often recommended to reduce symptoms. Pointing the feet down and up (movement from the ankle) several times throughout the day can help to move blood from the legs and back to the heart. This may be especially helpful for people who sit or stand for long periods of time. Walking is a good exercise for the calf muscle pump. People with chronic venous disease who walk less than 10 minutes a day have a greater risk for developing venous ulcers than those who are documented in this encounter Progress Notes * Katerin Duque RN - 06/29/2016 2:30 PM EST Images from the original note were not included. [facility] Progress Note HPI: Kwaku Garvey is a 36 y.o. male who returns for follow up. Type of Wound Venous ulcer: Current Compression Therapy and Currently using profore VNA: Yes [facility] Pertinent Labs: No results for input(s): HA1C, PREALBUMIN, CRP, SEDRATE in the last 7068 hours. Wound culture: ] Pertinent Tests: DINO's/Tcom/DVT study: VB TEXT REPORT Date Value Ref Range Status 06/29/2016 Preliminary Department: Vascular Surgery Lab Patient: [id number] (KWAKU GARVEY) CPT: 55227 ICD10: L97.921;I89.0;L97.911 Referring Physician: LINDA RUSSELL Indications: [...] in our vascular lab database for comparison. 06/29/2016 End of Report Preliminary Xray: No results found. MRI: No results found. Subjective: Patient denies fever, chills, sweats. Denies nausea, vomiting, loose bowels. Appetite is good Taking protein supplements: No Activity/Mobility: Fully ambulatory Current pain level Analgesia needed prior to procedure? no Objective: Vitals: Blood pressure (!) 127/99, pulse 94, temperature 37.3 ??C (99.1 ??F), temperature source Oral, resp. rate 18, SpO2 95 %. Dressing was removed. There was moderate amount of serous drainage. Malodor yes mild Erythema mild bilat hemosiderin staining Measurements (cm) Right Left Calf girth 45 49 Ankle girth 31 33.7 Below knee 62.6 62 Wound Location Measurements Tunneling/undermining Wound bed [place] wound skin RLE Open areas scattered throughout entire RLE none Wounds pink and clean Dry flaky LLE anterior 1 x 2 x 0.1 none 100% pink clean Dry flaky LLE posterior heel fissure 0.5 x 2.4 x 1.5 none Not visible intact PHOTO RLE LLE anterior LLE posterior heel fissure Treatment: Analgesia: none administered prior to debridement [] Order entered and documented on OCT Conservative Sharp Debridement: removing devitalized tissue using a curette and Forceps removing less than 20 cm sq down to and including skin tissue to reveal healthier tissue. Bleeding: No Wound cleansed with normal saline Dressings/wraps applied: RLE Mepilex Ag foam dssgs to cover all open areas LLE Mepilex Ag foma to anterior wound and Aquacel Ag rope into fissure cover with foam dssg Profore 4 layer compression wraps to bilat LE Pain Reassessment post treatment (0-10): 0 Assessment: Kwaku Garvey is a 36 y.o. male with Venous ulcers bilat LE Wound is currently progressing Plan: Will continue current plan of care Dressings as described above and 2x weekly Compression wraps with Profore 4 layer comp dssgs. Once weekly with VNA and once weekly at Wound Center. Pt instructed to elevate legs daily which he reports he is doing and to eat a diet with protein at each meal to assist with wound healing Follow up: weekly Return to Wound Healing Center in approximately 1 week. VNA orders: DINO results on 06/29/16 Interpretation: RIGHT: No significant lower extremity arterial occlusive disease at rest. LEFT: Mild lower extremity arterial occlusive disease. RLE Mepilex Ag foam dssg to cover all open areas on RLE Profore 4 layer compression wrap LLE Mepilex Ag foam dssg to anterior venous ulcer Aquacel Ag rope into posterior heel fissure and cover with Mepilex foam Profore 4 layer compression dssg to LLE Change dssg and wraps once weekly and they will be changed once weekly at Wound Center appt Profore Wraps 1. Wash legs and wounds with dermal wound cleasner. 2. Place Mepilex AG foam over broken areas, extending dressing onto intact periwound skin by approximately 1 cm. And Aquacewl Ag rope into LLE post heel fissure and cover with Mepilex foam 3. Apply Protective Ointment to intact skin. [...] stretch, making sure to enclose the heel. You will need 2 packages of Profore for each leg to bring wrap to just below knee Please call Wound Center for any concerns documented in this encounter Plan of Treatment Not on file documented as of this encounter Visit Diagnoses Diagnosis Ulcers of both lower legs, limited to breakdown of skin Lymphedema of both lower extremities documented in this encounter Care Teams Complex Care Nurse Practitioner Relationship Specialty Start Date End Date Lynne Barrett MD [address] [place] [id number] PCP - General Family Medicine 06/02/16 12/25/19 documented as of this encounter
--- OUTSIDE RECORDS SUMMARY | 2024-09-02 16:14 | XMS_ITS | Encounter Summary ---
Author Organization [facility] Address [facility] [place] [address] Care Team Providers Care Spoon Maker Name Role Phone Lynne Barrett MD Primary Care Provider Encounter Details Date Type Department Care Team (Late st Contact Info) Description 08/10/2016 [place]phone [place] [phone] Sagrario Bernardo RN Social History Tobacco Use Types Packs/Day Years Used Date Smoking Tobacco: Never Sex and Gender Information Value Date Recorded Sex Assigned at Not on file Gender Identity Not on file Sexual Orientation Not on file documented as of this encounter Miscellaneous Notes * Telephone Encounter - Sagrario Wolf RN - 08/10/2016 3:54 PM EST Received phone call from DEWEY Patrick/[facility] to discuss current plan of care for Kwaku Blanton. 1. She wanted to know if she could visit the patient on Monday 08/[address] of Tuesday 08/14. Drainage has not been an issue and wraps are staying in place. Verbal order given to see patient on Monday. 2. Kwaku has been working with Comfort Singletary with [facility] to be measured for custom Circaid garments. The paperwork is all set and they have a plan for Kwaku to go to [facility] on08/22/16 and Comfort Escalante will remove his Profore wraps and measure him for the garments. He will then gostraight home and Reyna will meet them and reapply Profore wraps. -will continue with this plan and we (Wound Center) will not measure him or order Ready Wrap garments. 3. Reyna notes hypergranulation tissue to left posterior LE wound. If still present at his next visit she is wondering if we can apply silver nitrate. -we will assess at his next visit and apply silver nitrate if indicated. SAGRRAIO WOLF, RN documented in this encounter Plan of Treatment Not on file documented as of this encounter Visit Diagnoses Not on filedocumented in this encounter Care Teams Spoon Maker Relationship Specialty Start Date End Date Lynne Barrett MD [address] [place] [address] PCP - General Family Medicine 06/02/16 12/25/19 documented as of this encounter
--- OUTSIDE RECORDS SUMMARY | 2024-09-02 16:14 | XMS_ITS | Encounter Summary ---
[place] [address] Care Team Providers Care Collections Curator Name Role Phone Lynne Barrett MD Primary Care Provider [phone] Reason for Visit * Reason Comments Wound Care both legs Encounter Details Date Type Department Care Team (Latest Contact Info) Description 08/03/2016 3:30 PM EST Procedure visit [place] [phone] Sagrario Bernardo RN Lymphedema of both lower extremities; Venous [...] Sign Reading Time Taken Comments Blood Pressure 143/90 08/03/2016 3:54 PM EST Pulse 93 08/03/2016 3:54 PM EST Temperature 36.8 ??C (98.3 ??F) 08/03/2016 3:54 PM ES T Respiratory Rate - - Oxygen Saturation 96% 08/03/2016 3:54 PM EST Inhaled Oxygen Concentration - - Weight - - Height - - Body Mass Index - - documented in this encounter Progress Notes * Sagrario Wolf RN - 08/03/2016 3:30 PM EST Images from the original note were not included. [facility] Progress Note HPI: Kwaku Blanton is a 36 y.o. male who returns for follow up. Type of Wound Venous ulcer: Currently using profore VNA: Yes [facility] Subjective: Patient denies fever, chills, sweats. Denies nausea, vomiting, loose bowels. Appetite is good Taking protein supplements: No Activity/Mobility: Fully ambulatory Removed Profore wraps prior to appointment today so he could shower Went to [facility] to be measured for compression stockings but the wraps had slid down so measurements were not obtained. Reports the wraps have been mostly staying in place, not much drainage on the dressings when they were removed today prior to showering Current pain level 0/10 Analgesia needed prior to procedure? no Objective: Vitals: Blood pressure 143/90, pulse 93, temperature 36.8 ??C (98.3 ??F), temperature source Oral, SpO2 96 %. Dressing was removed. None in place Wounds weeping serosanguinous drainage upon arrival Malodor no Erythema yes to dorsal left foot and toes and lateral left foot, unchanged from prev. Appointment. Light erythema to gaiter area of bilateral LE where edema is present. There is a linear area of indentation to both legs approximately mid calf where it appears that theProfore wraps had slid down although Kwaku and his caregiver report that they had been in the proper position prior to removal Pulses: Dorsalis Pedis: Right:palpable Left: palpable Posterior Tibia: Right: palpable Left: palpable Measurements (cm) Right Left Calf girth 63.9 cm 70 cm Mid calf 49 cm 55 cm Ankle girth 31 cm 30.5 cm Right anterior LE with intact serous filled blister that measures 1 cm X 0.7 cm Left anterior LE with area of intact deep purple discoloration that measures 1 cm X 2.5 cm Dried exudate/devitalized tissue to right anterior mid olmedo Scattered areas of stasis dermatitis especially to left posterior LE [place] wound Wound Location Measurements Tunneling/undermining Wound bed [place] wound skin Right lateral LE: 2 wounds Proximal Distal 1 cm x 5 cm 0.5 cm x 1 cm 1 cm x 0.8 cm None None 100% red moist tissue Dry scaling dermatitis Left posterior LE 0.2 cm X 3.5 cm X 0.5 cm none 100% pink moist tissue Dry scaling dermatitis Right anterior LE pre debridement Post debridement Right lateral LE Left anterior LE Left posterior LE Treatment: Analgesia: none administered prior to debridement [x] Order entered and documented on OCT Conservative Sharp Debridement: removing devitalized tissue using a curette and Forceps removing less than 20 cm sq down to and including subcutaneous tissue to reveal healthier tissue. Bleeding: Yes Small amount controlled with Normal Saline rinse Wound cleansed with normal saline Dressings/wraps applied: Mepilex lite to area of purple discoloration and intact serous filled blister mepilex foam to right lateral LE wounds One piece of Aquacel AG to left posterior wound covered with Mepilex foam. Triamcinolone cream applied to BLE areas of stasis dermatitis Profore Wraps applied to BILATERAL LE 1. Profore #1: Was applied by wrapping the foot in a spiral fashion starting at the base of the toeand contining in a sprial manner up the legs to the knee with a 50% overlap. Extra webril applied from ankle to mid calf to make a more uniform shape of the leg to avoid wraps falling down 2. Profore #2: Was applied by wrapping [...] Reassessment post treatment (0-10): 0 Assessment: Kwaku Blanton is a 36 y.o. male with Venous ulcer Wound is currently progressing Plan: continue with current plan of care. Left posterior wound is healing and decreasing in size. New areas of skin breakdown to right lateral LE, likely due to no compression and legs in the dependent position for the ride down here. He went to try to be measured for compression stockings however we discussed today and had previously discussed getting Readywraps in place of stockings given patients limb size and fluctuation in edema. It has been difficult to obtain measurements for the Readywraps as the Profore wraps have slid down in the past, not representing true girth and today he arrived without compression on. Discussed with patient and caregiver that Profore wraps need to be on upon arrival to the appointment and that we will obtain measurements for Ready wraps when able, plan for those in place of compression stockings. Both were in agreement with plan of care. Follow up: Return to Wound Healing Center in approximately 2 weeks. Patient Instructions/Education: Elevate legs when able and see above plan VNA orders: [facility]: Change Profore wraps to BLE on Wednesdays and Sundays and as needed due to drainage or if the dressings fall off. We will measure the patient for Ready Wrap compression garments when able. Compression stockings are not going to fit patient properly. Profore Wraps 6. Wash legs and wounds with dermal wound cleasner. 7. Place one piece of melgisorb ag or aquacel ag to left posterior LE wound, cover with Mepilex foam. Apply Mepilex foam to right lateral LE wounds. Ok to apply Mepilex or Mepilex lite over area of purple discoloration and intact blister. 8. Apply Protective Ointment to intact skin. Triamcinolone cream to areas of stasis dermatitis. 9. Profore #1: Wrap the foot in a spiral fashion starting at the base of the toes and contining in a sprial manner up the legs to the knee with a 50% overlap. Apply extra webril from ankle to mid calf to make a more uniform shape of the leg to avoid wraps falling down 10. Profore #2: Again wrap the foot [...] extremities documented in this encounter Care Teams Collections Curator Relationship Specialty Start Date End Date Lynne Barrett MD [address] [place] [address] PCP - General Family Medicine 06/02/16 12/25/19 documented as of this encounter
--- OUTSIDE RECORDS SUMMARY | 2024-09-02 16:14 | XMS_ITS | Encounter Summary ---
Author Organization [facility] Address [place] [address] Care Team Providers Care Lab Coordinator Name Role Phone Lynne Barrett MD Primary Care Provider [phone] Encounter Details Date Type Department Care Team (Late st Contact Info) Description 07/20/2016 3:30 PM EST Office [place] [address] Kathya Jensen, LENA Venous stasis ulcers of both lower extremities; Schizophrenia, unspecified type; Morbid obesity, unspecified obesity type; Essential hypertension; Ulcers of both lower legs, limited to breakdown of skin; Lymphedema of both lower extremities Social History Tobacco Use Types Packs/Day Years Used Date Smoking Tobacco: Never Sex and Gender Information Value Date Recorded Sex Assigned at Not on file Gender Identity Not on file Sexual Orientation Not on file documented as of this encounter Progress Notes * Kathya Jensen APRN - 07/20/2016 3:30 PM EST [facility] Progress Note ?? Reason for visit: Venous ulcer ?? Initial consult date: 06/20/16 ?? HPI: Pt reports they have been well since his last visit. ??He denies fever and chills. His wraps have been staying up for the most part. ?? Examination: Patient is alert, conversant, comfortable, ambulating. There are fissures over both posterior ankles (see procedure note) ?? Impression: Kwaku Blanton is a 36 y.o. year old male who was seen today for follow-up prior to wound care procedures and treatment. He is tolerating the Profore wraps without problem. Please see the procedure note for details. We discussed continuing the current plan of care. Plan: 1. Follow up in 1 week 2. Continue current plan of care Kwaku Armstrong Franny was seen today along with: Lizzeth Hernandez, PT, CWS who provided technical wound care procedures after my visit. Please see their note for full detailsof the visit. documented in this encounter Plan of Treatment Not on file documented as of this encounter Visit Diagnoses Diagnosis Venous stasis ulcers of both lower extremities Schizophrenia, unspecified type Morbid obesity, unspecified obesity type Essential hypertension Unspecified essential hypertension Ulcers of both lower legs, limited to breakdown of skin Lymphedema of both lower extremities documented in this encounter Care Teams Lab Coordinator Relationship Specialty Start Date End Date Lynne Barrett MD [address] [place] [address] PCP - General Family Medicine 06/02/16 12/25/19 documented as of this encounter
--- OUTSIDE RECORDS SUMMARY | 2024-09-02 16:14 | XMS_ITS | Encounter Summary ---
[place] [address] Care Team Providers Care Manager Package Name Role Phone Lynne Barrett MD Primary Care Provider [phone] Reason for Referral * Physical Therapy (Routine) - Closed Specialty Diagnoses / Procedures Referred By Contac t Referred To Contact Physical Therapy Diagnoses Lymphedema of both lower extremities Emmy Mcdaniels APRN [facility] [address] [facility] [place] [address] Referral ID Status Reason Start Date Expiration Date V isits Requested Visits Authorized [id number] Closed Evaluate and Treat 06/22/2016 06/22/2017 1 1 Reason for Visit * Reason Comments Wound Check bileteral legs Encounter Details Date Type Department Care Team (Late st Contact Info) Description 06/22/2016 1:00 PM EDT Office [place] [phone] Emmy Mcdaniels APRN Lymphedema of both lower extremities (Primary Dx); Ulcers of both lower legs, limited to breakdown of skin Social History Tobacco Use Types Packs/Day Years Used Date Smoking Tobacco: Never Sex and Gender Information Value Date Recorded Sex Assigned at Not on file Gender Identity Not on file Sexual Orientation Not on file documented as of this encounter Last Filed Vital Signs Vital Sign Reading Time Taken Comments Blood Pressure 139/77 06/22/2016 1:27 PM EDT Pulse 108 06/22/2016 1:27 PM EDT Temperature 38.3 ??C (101 ??F) 06/22/2016 1:27 PM EDT Respiratory Rate 22 06/22/2016 1:27 PM EDT Oxygen Saturation 94% 06/22/2016 1:27 PM EDT Inhaled Oxygen Concentration - - Weight 231.3 kg (510 lb) 06/22/2016 1:27 PM EDT PP Height - - Body Mass Index - - documented in this encounter Patient Instructions * Patient Instructions* Emmy Mcdaniels APRN - 06/22/2016 1:00 PM EDT VNA Instructions for dressing changes Change every 2 days Remove old dressings Cleanse with normal saline Pat dry with gauze Apply moisturizing lotion to both lower extremities except wounds Apply Melgisorb AG to all open wounds to both lower legs Cover with Mepilex non border foam Secure with Web roll and conforming bandage roll Apply single layer tubi shovel oiler Hold Profore wraps-no compression at this time. documented in this encounter Progress Notes * Emmy Mcdaniels APRN - 06/22/2016 1:00 PM EDT Images from the original note were not included. [facility] Initial Consultation Note HPI: Kwaku Garvey is a 36 y.o. male referred by Lynne Barrett MD for evaluation of ulcer to left lower leg, Lymphedema. Mr. Garvey gives a longstanding history of cellulitis to lower extremities with a 23day admission to an outside hospital summer. He has had VNA services since January, for care of lower extremities with Profore wraps. He developed an open wound to posterior LLE as a resultof the Profore wrap irritating his skin. He has Lymph edema and wears Pneumatic compression 90 minutes twice a day. VNA: Yes. [facility]. Patient Active Problem List Diagnosis Code ??? Lymphedema of both lower extremities I89.0 ??? Ulcers of both lower legs, limited to breakdown of skin L97.911, L97.921 ??? Hypertension I10 ??? Morbid obesity E66.01 ??? Schizophrenia F20.9 Social History Social History ??? Marital status: Single Spouse name: N/A ??? Number of children: N/A ??? Years of education: N/A Social History Main Topics ??? Smoking status: Never Smoker ??? Smokeless tobacco: None ??? Alcohol use None ??? Drug use: None ??? Sexual activity: Not Asked Other Topics Concern ??? None Social History Narrative ??? None Diagnostics: DINO's: Pending Review Of Systems: Mr. Garvey is here today for evaluation of bilateral lower extremity edema with open wounds. He has history of cellulitis to lower extremities and was admitted to an outside hospital summer. He is followed by his local VNA and was receiving Profore wraps. He develop several open wounds to both lower extremities as a result of the wraps irritating his skin. He wears pneumatic compression 90 minutes 2 x day. He has a history of schizophrenia and resides with a caregiver who has accompanied him today to hisappointment. He denies constitutional symptoms of chills, sweats. Wound care: Profore wraps He denies calf cramping, skin itching. He reports limited walking. He becomes short of breath with activity and attributes to his weight. History of morbid obesity. Neuropathy: Denies Pain: Denies PE: There is no height or weight on file to calculate BMI. General: pleasant, in NAD. Mobility: Ambulates independently short distances. Edema: Lymphedema to BLE DP, PT pulses: Audible with doppler to BLE. Varicosities: No Hemosiderin staining: Yes Stasis dermatitis: Yes Bilateral lower extremity wounds: Periwound: Intact, erythema Wound bed: Innovation tissue Exudate: Serous Odor: None Not measured today: Right Calf: Right Ankle: Left Calf: Left Ankle: Wound location Wound bed Measurement Left posterior lower leg Innovation tissue 1.5cm x 3.0cm x 1.2cm Right posterior ankle Innovation tissue 1.5cm x 5.0cm x 0.2cm Right anterior lower leg Innovation tissue Medial-2.0cm x 2.0cm Superior-0.9cm x 1.0cm Central/anterior-2.0cm x 1.0cm Undermining/tunneling: No Right medial lower leg Right anterior leg Left posterior lower leg Left anterior lower leg Wound treatment: Bilateral lower extremities: Cleansed wound with NS. Analgesia: None Conservative sharp debridement: None required today. Dressing: Melgisorb AG, Mepilex non-border, web roll and conforming bandage roll. Tubigrip:Single layer Size G. Assessment/ Plan: Kwaku Garvey is a 36 y.o. male referred by Lynne Barrett MD for evaluation of ulcer to left lower leg, Lymphedema. He is S/P hospital admission 2015 for cellulitis lower extremities. He has had VNA services since January, for care of lower extremities with Profore wraps. He developed an open wound to posterior LLE as a result of the Profore wrap irritating his skin. He wears Pneumatic compression 90 minutes twice a day to both lower extremities. We discussed POC to include referral to Lymphedema specialist and DINO testing to evaluate arterial status of BLE. He was in agreement of POC. Referral was made to PT for Lymphedema evaluation of BLE. DINO testing has been ordered. Will hold compression therapy until ABIs obtained. He was provided verbal and written wound care instructions. He will call with any questions or concerns. Will plan weekly F/U in wound center for several weeks then consider deceasing to every 2 to 3 weeks with VNA services in the interim. Reviewing VS from 06/21/16 noting temp of 101. Mr. Garvey had no report of chills or malaise during visit.A call was placed to his caregiver 06/23/16 to follow up on temperature. The caregiver reports he is feeling fine, eating, drinking and has no complaints of fever or chills. He is scheduled to seehis PCP today , 06/23/16 and will request his temperature be rechecked at that time. Follow up: Weekly Instructions: [facility] V[facility] Instructions for dressing changes Change every 2 days Remove old dressings Cleanse with normal saline Pat dry with gauze Apply moisturizing lotion to both lower extremities except wounds Apply Melgisorb AG to all open wounds to both lower legs Cover with Mepilex non border foam Secure with Web roll and conforming bandage roll Apply single layer tubi shovel oiler Hold Profore wraps-no compression at this time. Cc: Lynne Barrett MD [address] [place] [address] PCP: Lynne Barrett MD documented in this encounter Plan of Treatment Scheduled Referrals Name Type Priority Associated Diagnoses Orde r Schedule Referral to Physical Therapy Outpatient Referral Routine Lymphedema of both lower extremities Ordered: 06/22/2016 documented as of this encounter Results * DINO, legs, multiple levels (06/29/2016 1:32 PM EST) VB Text Report Department: Vascular Surgery Lab Patient: [id number] (KWAKU GARVEY) CPT: 38682 ICD10: L97.921;I89.0;L 97.911 Referring Physician: WING RUSSELL [...] PM EST Wing Russell MD VASCULAR ORDERABLES Performing Organization Address City/State/[facility] Co de Phone Number [facility] documented in this encounter Visit Diagnoses Diagnosis Lymphedema of both lower extremities- Primary Ulcers of both lower legs, limited to breakdown of skin documented in this encounter Care Teams Manager Package Relationship Specialty Start Date End Date Lynne Barrett MD [address] [place] [address] PCP - General Family Medicine 06/02/16 12/25/19 documented as of this encounter
--- OUTSIDE RECORDS SUMMARY | 2024-09-02 16:14 | XMS_ITS | Encounter Summary ---
Author Organization [facility] [place] [address] Care Team Providers Care Pin Pusher Name Role Phone Lynne Barrett MD Primary Care Provider [phone] Encounter Details Date Type Department Care Team (Late st Contact Info) Description 06/30/2016 Notes [place] [address] Emmy Mcdaniels APRN Social History Tobacco Use Types Packs/Day Years Used Date Smoking Tobacco: Never Sex and Gender Information Value Date Recorded Sex Assigned at Not on file Gender Identity Not on file Sexual Orientation Not on file documented as of this encounter Progress Notes * Emmy Mcdaniels APRN - 06/30/2016 7:42 AM EST Results of ABIs done 06/29/16 Department: Vascular Surgery Lab Patient: [id number] (KWAKU GARVEY) CPT: 29795 ICD10: L97.921;I89.0;L97.911 Referring Physician: LINDA RUSSELL ?? Indications: 510 lbs male with [...] in our vascular lab database for comparison. Plan: Will proceed with compression therapy today. He is awaiting an appointment with the Lymphedema specialist here at [facility]. documented in this encounter Plan of Treatment Not on file documented as of this encounter Visit Diagnoses Not on filedocumented in this encounter Care Teams Pin Pusher Relationship Specialty Start Date End Date Lynne Barrett MD [address] [place] [address] PCP - General Family Medicine 06/02/16 12/25/19 documented as of this encounter
--- OUTSIDE RECORDS SUMMARY | 2024-09-02 16:14 | XMS_ITS | Encounter Summary ---
Author Organization [facility] Address [facility] [place] [place] [address] Care Team Providers Care Manager Forensic Name Role Phone Lynne Barrett MD Primary Care Provider [phone] Reason for Visit * Reason Comments Wound Care bileteral legs Encounter Details Date Type Department Care Team (Late st Contact Info) Description 07/20/2016 3:00 PM EST Office [place] [phone] Cholo Hernandez Lymphedema of both lower extremities; Venous stasis [...] Sign Reading Time Taken Comments Blood Pressure 147/83 07/20/2016 3:06 PM EST Pulse 87 07/20/2016 3:06 PM EST Temperature 38 ??C (100.4 ??F) 07/20/2016 3:06 PM EST 99.3 Respiratory Rate 20 07/20/2016 3:06 PM EST Oxygen Saturation 96% 07/20/2016 3:06 PM EST Inhaled Oxygen Concentration - - Weight - - Height - - Body Mass Index - - documented in this encounter Patient Instructions * Patient Instructions* Cholo Hernandez, PT - 07/20/2016 3:00 PM EST VNA orders for [facility]: Change Profore wraps to BLE on every other Monday & every Monday and as needed due to drainage or if the dressings fall off. We will see him for follow up every other Monday now. Use extra roll of webril if you need it if the wraps have fallen down. If they have fallen down, when you reapply the wraps, wrap extra webril on the leg up to where the bulging portion of edema is to make the leg a more uniform shape. Cleanse intact skin on legs with Hibiclens ?? Profore Wraps 1. Wash legs and wounds with dermal wound cleasner. 2. Tuck one piece of Aquacel AG ribbon in to fill & cover to left posterior LE wound, cover with Mepilex foam. Apply Mepilex AG foam to right posterior LE wound 3. Apply Triamcinolone (0.1%) cream to intact, dry skin. 4. Profore #1: Wrap the foot [...] stretch, making sure to enclose the heel. ?? documented in this encounter Progress Notes * Cholo Hernandez, PT - 07/20/2016 3:00 PM EST Images from the original note were not included. [facility] Note I provided the following component of today's treatment to the patient: Girth & wound measurements, photos taken: Measurements (cm) Right Left Calf girth 48.5 cm 54.5 cm Ankle girth 28.5 cm 31.0 cm ? Wound Location Measurements Tunneling/undermining Wound bed [place] wound skin Left posterior LE 0.8 cm X 2.2 cm x 0.7 cm none 90% red moist tissue, 10% yellow slough Dry scalingdermatitis Right posterior LE 0.5 cm x 0.8 cm x 0.1 cm none 95% red moist tissue, 5% yellow tissue Dry scalingdermatitis ?? PHOTOS-- Left posterior LE: Left anterior LE: Right posterior LE: Right anterior LE: Wound treatment: Analgesia: 2% Lidocaine applied to wounds Wounds cleansed with saline PPAP COORDINATOR cleansed intact skin (B)LEs with Hibiclens Selective sharp debridement of non-viable tissue with forceps & curette < 20 cm sq Dressings/wraps applied: Mepilex AG foam to right posterior LE wound. Aquacel AG 1 cm to left posterior LE wound, covered with Mepilex foam. Triamcinolone (0.1%) cream applied to BLE areas of stasis [...] care instructions of wraps, patient verbalized understanding. ?? Will ask sales secretary to FAX today's notes (this & STEEL INSPECTOR to [facility]): A orders for [facility]: Change Profore wraps to BLE on every other Monday & every Monday and as needed due to drainage or if the dressings fall off. We will see him for follow up every other Monday now. Use extra roll of webril if you need it if the wraps have fallen down. If they have fallen down, when you reapply the wraps, wrap extra webril on the leg up to where the bulging portion of edema is to make the leg a more uniform shape. Cleanse intact skin on legs with Hibiclens ?? Profore Wraps 1. Wash legs and wounds with dermal wound cleasner. 2. Tuck one piece of Aquacel AG ribbon in to fill & cover to left posterior LE wound, cover with Mepilex foam. Apply Mepilex AG foam to right posterior LE wound 3. Apply Triamcinolone (0.1%) cream to intact, dry skin. 4. Profore #1: Wrap the foot [...] stretch, making sure to enclose the heel. CHOLO HERNANDEZ PT, CWS documented in this encounter Plan of Treatment Not on file documented as of this encounter Visit Diagnoses Diagnosis Lymphedema of both lower extremities Venous stasis ulcers of both lower extremities documented in this encounter Care Teams Manager Forensic Relationship Specialty Start Date End Date Lynne Barrett MD [address] [place] [id number] PCP - General Family Medicine 06/02/16 12/25/19 documented as of this encounter
--- OUTSIDE RECORDS SUMMARY | 2024-09-02 16:14 | XMS_ITS | Encounter Summary ---
Author Organization [facility] [place] [address] Care Team Providers Care Javascript Software Engineer Name Role Phone Lynne Barrett MD Primary Care Provider [phone] Encounter Details Date Type Department Care Team (Latest Contact Info) Description 07/06/2016 1:00 PM EST Procedure [place] [phone] Raji Clay, RN Lymphedema of both lower extremities; Ulcers of [...] Sign Reading Time Taken Comments Blood Pressure 147/102 07/06/2016 1:53 PM EST Pulse 92 07/06/2016 1:53 PM EST Temperature 37.2 ??C (98.9 ??F) 07/06/2016 1:53 PM ES T Respiratory Rate - - Oxygen Saturation 95% 07/06/2016 1:53 PM EST Inhaled Oxygen Concentration - - Weight - - Height - - Body Mass Index - - documented in this encounter Progress Notes * Raji Clay RN - 07/06/2016 1:00 PM EST Images from the original note were not included. [facility] Progress Note HPI: Kwaku Garvey is a 36 y.o. male who returns for follow up. Type of Wound Venous ulcer: Currently using profore VNA: Yes [place] Pertinent Labs: No results for input(s): HA1C, PREALBUMIN, CRP, SEDRATE in the last 7068 hours. Wound culture: ] Pertinent Tests: DINO's/Tcom/DVT study: VB TEXT REPORT Date Value Ref Range Status 06/29/2016 Final Department: Vascular Surgery Lab Patient: [id number] (KWAKU GARVEY) CPT: 73473 ICD10: L97.921;I89.0;L97.911 Referring Physician: LINDA RUSSELL Indications: [...] needed prior to procedure? no Objective: Vitals: BP (!) 147/102 Pulse 92 Temp 37.2 ??C (98.9 ??F) (Oral) SpO2 95% Dressing was removed. There was small amount of serous drainage. Malodor no Erythema no Pulses: Dorsalis Pedis: Right:palpable Left: palpable Posterior Tibia: Right: palpable Left: palpable ?? Measurements (cm) Right Right 07/06/16 Left Left 07/06/16 Calf girth 45 45.6 49 51.2 Ankle girth 31 29.9 33.7 31.4 Below knee 62.6 62 ? Wound Location Measurements 07/06/16 Measurements Tunneling/undermining Wound bed [place] wound skin RLE lateral 0.2 cm x 0.7 cm x <0.1 cm 100% moist red RLE 0.4 cm x 2.3 cm x 0.4 cm Open areas scattered throughout entire RLE none 50% slough/50% red tissue Dry flaky LLE anterior Resolved 1 x 2 x 0.1 none 100% pink clean Dry flaky LLE posterior 1 cm x 1.3 cm x 1 cm ? PHOTO: RLE LLE Treatment: Analgesia: none administered prior to debridement [] Order entered and documented on OCT Conservative Sharp Debridement: removing devitalized tissue using a curette and Forceps removing less than 20 cm sq down to and including subcutaneous tissue to reveal healthier tissue. Bleeding: Yes, stopped spontaneously Wound cleansed with normal saline Dressings/wraps applied: Aquacel Ag in posterior lower legs, mepilex foam, Mepilex Ag at RLE lateral, LLE posterio; Profore wraps Profore Wraps 1. Wash legs and wounds with dermal wound cleasner. 2. Place above over broken areas, extending dressing onto intact periwound skin by approximately 1 cm. 3. Apply Protective Ointment to intact skin. [...] a 50% stretch and a 50% overlap. Profore #4: Apply the wrap starting at just above the toes working in a circular fashion to just below the knee with a 50% overlap and a 50% stretch, making sure to enclose the heel. Pain Reassessment post treatment (0-10): 2 Assessment: Kwaku Garvey is a 36 y.o. male with Venous ulcer Wound is currently progressing Plan: continue with POC, with additional webril Follow up: Patient should be measured for Readywraps at next appt if the edema is more equalized aswas very bulbous at the BLEs today. Return to Wound Healing Center in approximately 1 week. Patient Instructions/Education: Keep legs elevated 30-60 minutes at least 3 times per day VNA orders: Profore Wraps PLEASE ADD EXTRA WEBRIL (we have provided two rolls today, you will have to order more webril) to prevent the Profore from sliding down the leg 1. Wash legs and wounds with dermal wound cleasner. 2. Place Mepilex AG foam over broken areas, extending dressing onto intact periwound skin by approximately 1 cm. And Aquacel Ag rope into LLE post heel fissure [...] skin documented in this encounter Care Teams Javascript Software Engineer Relationship Specialty Start Date End Date Lynne Barrett MD [address] [place] [address] PCP - General Family Medicine 06/02/16 12/25/19 documented as of this encounter
--- OUTSIDE RECORDS SUMMARY | 2024-09-02 16:14 | XMS_ITS | Encounter Summary ---
Author [facility] [place] [address] Care Team Providers Care Administrator Social Welfare Name Role Phone Lynne Barrett MD Primary Care Provider Reason for Visit * Reason Comments Wound Care Encounter Details Date Type Department Care Team (Latest Contact Info) Description 08/17/2016 3:00 PM EST Procedure [place] [phone] Venous stasis ulcers of both lower extremities Social History Tobacco Use Types Packs/Day Years Used Date Smoking Tobacco: Never Sex and Gender Information Value Date Recorded Sex Assigned at Not on file Gender Identity Not on file Sexual Orientation Not on file documented as of this encounter Last Filed Vital Signs Vital Sign Reading Time Taken Comments Blood Pressure 149/89 08/17/2016 3:17 PM EST Pulse 86 08/17/2016 3:17 PM EST Temperature 37.1 ??C (98.8 ??F) 08/17/2016 3:17 PM ES T Respiratory Rate - - Oxygen Saturation 100% 08/17/2016 3:17 PM EST Inhaled Oxygen Concentration - - Weight - - Height - - Body Mass Index - - documented in this encounter Progress Notes * Katerin Duque RN - 08/17/2016 3:00 PM EST Images from the original note were not included. [facility] Progress Note HPI: Kwaku Garvey is a 36 y.o. male who returns for follow up. Type of Wound Venous ulcer: Currently using profore VNA: Yes [facility] Pertinent Labs: No results for input(s): HA1C, PREALBUMIN, CRP, SEDRATE in the last 7068 hours. Wound culture: ] Pertinent Tests: DINO's/Tcom/DVT study: VB TEXT REPORT Date Value Ref Range Status 06/29/2016 Final Department: Vascular Surgery Lab Patient: [id number] (KWAKU GARVEY) CPT: 95912 ICD10: L97.921;I89.0;L97.911 Referring Physician: LINDA RUSSELL Indications: [...] to procedure? no Objective: Vitals: Blood pressure 149/89, pulse 86, temperature 37.1 ??C (98.8 ??F), temperature source Oral, SpO2 100 %. Dressing was removed. There was small amount amount of serosanguinous drainage. Malodor no Erythema no Measurements (cm) Right Left Calf girth 61.2 62 Ankle girth 30.2 31.2 Wound Location Measurements Tunneling/undermining Wound bed [place] wound skin RLE ant 2 x 7 x 0.2 none 100% clean moist pink/red intact RLE lateral 1.4 x 5 x 0.1 none Unroofed bulla intact RLE posterior HEALED LLE posterior Not measured see photo LLE medial not measured see photo PHOTO RLE lateral bulla RLE posterior RLE anterior LLE posterior LLE medial Treatment: Analgesia: none administered prior to debridement [] Order entered and documented on MAR Conservative Sharp Debridement: removing devitalized tissue using a curette removing less than 20 cm sq down to and including subcutaneous tissue to reveal healthier tissue.on RLE Bleeding: Yes; scant amount controlled with Normal Saline rinse Wound cleansed with normal saline Both legs scrubbed with Hibiclens sponge and dried thoroughly Dressings/wraps applied: Mepilex Ag foam dssgs to all LE wounds bilat and Profore 4 layer compression wraps to bilat LE Profore Wraps 1. Wash legs and wounds with dermal wound cleanser or Hibiclens 2. Place Mepilex AG foam over broken [...] the heel. Pain Reassessment post treatment (0-10): 0 Assessment: Kwaku Garvey is a 36 y.o. male with Venous ulcers Wound is currently progressing on LLE new injury noted on RLE Plan: will continue current POC with weekly Profore wraps Follow up: every other week Return to Wound Healing Center in approximately 2 weeks. Patient Instructions/Education: Elevate legs 2 - 3 x daily 30-60 minutes, eat a diet rich in protein for wound healing VNA orders: [facility] VNA orders: ?? [facility]: Change Profore wraps to BLE on Wednesdays and Sundays and as needed due to drainage or if the dressings fall off. We will measure the patient for Ready Wrap compression garments when able. Compression stockings are not going to fit patient properly. ?? Profore Wraps 6. Wash legs and wounds with dermal wound cleasner.or Hibiclens 7. Place one piece of melgisorb ag or aquacel ag to left posterior LE wound, cover with Mepilex Ag foam. Apply Mepilex foam to right lateral LE wounds and Left LE wounds 8. Apply Protective Ointment to intact skin. [...] stretch, making sure to enclose the heel. ? documented in this encounter Plan of Treatment Not on file documented as of this encounter Visit Diagnoses Diagnosis Venous stasis ulcers of both lower extremities documented in this encounter Care Teams Administrator Social Welfare Relationship Specialty Start Date End Date Lynne Barrett MD [address] [place] [address] PCP - General Family Medicine 06/02/16 12/25/19 documented as of this encounter
--- NOTE | 2024-09-02 16:34 | DI.RAD_ITS ---
Exam(s) XR TIB/FIB RT EXAM: XR TIB/FIB RT CLINICAL HISTORY: Right lateral leg laceration. TECHNIQUE: 2D digital imaging was performed of the right tibia and fibula. Three images were obtaine d. AP and lateral views were obtained. COMPARISON: No exams were available for comparison FINDINGS: BONES: No acute fracture is present. No bony destructive lesion is seen. Visualized portion of knee a nd ankle joints are unremarkable. SOFT TISSUE: There is a soft tissue laceration at the anterolateral aspect of the mid lower leg. No radiopaque foreign body is identified. IMPRESSION: Soft tissue laceration at the anterolateral aspect of the mid right lower leg. No radiopaque foreign body. No acute fracture or dislocation. DATA REPOSITORY: RADIATION DOSE DELIVERED:
[2024-09-02] MEDS: MORPHine 4 MG/ML SYR IVP (16:36)
[2024-09-02 17:08] VITALS: PULSE 80; RESP 16; O2SAT 99
== END 2024-09-02 17:12 | disposition home or self-care (01) ==
PROVIDERS: Emergency Provider Emergency Medicine; PCP Family Medicine
DX: S81.811A Laceration without foreign body, right lower leg, initial encounter (principal); Z23 Encounter for immunization; W18.42XA Slipping, tripping and stumbling without falling due to stepping into hole or opening, initial encounter; Y93.01 Activity, walking, marching and hiking; Y92.838 Other recreation area as the place of occurrence of the external cause
CPT/HCPCS: 12002; 90715; 96365; 96375; 99284; 73590; 99283; J0690; J1885; J2004; J2270

== ENCOUNTER 2025-03-12 10:20 | Outpatient (CLI) | payer MEDICARE, MEDICAID, SELFPAY ==
[2025-03-12 09:48] LABS: Anion Gap 9.6 mmol/L (3-11); BUN 14 mg/dL (7-18); CO2 29.4 mmol/L (21.0-32.0); Calcium 9.3 mg/dL (8.5-10.1); Chloride 105 mmol/L (98-107); Estimated GFR 108.01 (mL/min/1.73m2); Glucose 84 mg/dL (74-106); Potassium 4.1 mmol/L (3.5-5.1); Sodium 144 mmol/L (136-145)
== END 2025-03-12 10:21 | disposition home or self-care (01) ==
LOC: LBO 10:21
PROVIDERS: PCP Family Medicine; Visit Provider Psychiatry & Neurology Psychiatry
DX: Z79.899 Other long term (current) drug therapy (principal)
CPT/HCPCS: 36415; 80048; 80164